=== PATIENT | female | born 1985 | race Caucasian/White ===

== ENCOUNTER 2016-11-07 08:37 | Inpatient (IN) | payer MEDICAID ==
--- NOTE | 2016-11-07 09:42 | ER Document Report ---
ED Medical Screen (RME) - General Chief Complaint: Fall Stated Complaint: FALL/ BACK PAIN Notes: Patient says she has fallen 3 times since midnight. Her only injury is pain between the shoulder blades where she hit her back. 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 She has occasional falls, but has not had 3 in a row like currently. She also has a history of vertigo. Says she was feeling very tired all day yesterday but no other symptoms. Has not had any vomiting or diarrhea. No UTI symptoms. No fevers. PMH: Asthma, GERD, IDDM, hypothyroid. TRAVEL OUTSIDE OF THE [place] IN LAST 30 DAYS: No - Related Data Allergies/Adverse Reactions: clarithromycin [From Biaxin] Allergy (Mild, Verified 11/07/16 08:46) Hives codeine [Codeine] Allergy (Mild, Verified 11/07/16 08:46) Hives meperidine HCl [From Demerol] Allergy (Mild, Verified 11/07/16 08:46) Hives Influenza Virus Vaccines [Influenza Virus Vaccine] Allergy (Verified 11/07/16 08 :46) Past Medical History - Past Medical History Cardiac Medical History: Reports: Hx Peripheral Vascular Disease, Hx Heart Murmur Denies: Hx Atrial Fibrillation, Hx Congestive Heart Failure, Hx Coronary Artery Disease, Hx Heart Attack, Hx Hypercholesterolemia, Hx Hypertension, Hx Pulmonary Embolism Pulmonary Medical History: Reports: Hx Asthma Denies: Hx Bronchitis, Hx COPD, Hx Pneumonia, Hx Respiratory Failure, Hx Sleep Apnea, Hx Tuberculosis Neurological Medical History: Reports: Hx Migraine, Hx Seizures. Denies: Hx Cerebrovascular Accident Endocrine Medical History: Reports: Hx Diabetes Mellitus Type 1, Hx Diabetes Mellitus Type 2, Hx Hypothyroidism. Denies: Hx Graves' Disease, Hx Hyperthyroidism Renal/ Medical History: Denies: Hx End Stage Renal Disease, Hx Kidney Stones, Hx Ovarian Cysts, Hx Peritoneal Dialysis, Hx Pelvic Inflammatory Disease Malignancy Medical History: Denies: Hx Breast Cancer, Hx Cervical Cancer, Hx Leukemia, Hx Lung Cancer, Hx Ovarian Cancer GI Medical History: Reports: Hx Gastroesophageal Reflux Disease, Hx Ulcer. Denies: Hx Crohn's Disease, Hx Hiatal Hernia, Hx Irritable Bowel, Hx Liver Failure Musculoskeltal Medical History: Denies Hx Arthritis, Denies Hx Multiple Sclerosis Skin Medical History: Reports Hx Cellulitis Psychiatric Medical History: Denies: Hx Bipolar Disorder, Hx Dementia, Hx Depression, Hx Post Traumatic Stress Disorder, Hx Schizophrenia Infectious Medical History: Denies: Hx HIV Past Surgical History: Reports: Hx Section - x 2, Hx Gynecologic Surgery - D&C, Hx Oral Surgery, Hx Tubal Ligation - December 2009. Denies: Hx Appendectomy, Hx Bowel Surgery, Hx Cholecystectomy, Hx Colostomy, Hx Coronary Artery Bypass Graft, Hx Gastric Bypass Surgery, Hx Herniorrhaphy, Hx Hysterectomy, Hx Mastectomy, Hx Pacemaker, Hx Tonsillectomy - Immunizations Immunizations up to date: Yes Hx Diphtheria, Pertussis, Tetanus Vaccination: Yes Physical Exam - Vital signs Vitals: Temp Pulse Resp BP Pulse Ox 97.6 F 102 H 21 H 113/62 98 11/07/16 08:46 11/07/16 08:46 11/07/16 08:46 11/07/16 08:46 11/07/16 08:46 Course - Vital Signs Vital signs: Temp Pulse Resp BP Pulse Ox 97.6 F 102 H 21 H 113/62 98 11/07/16 08:46 11/07/16 08:46 11/07/16 08:46 11/07/16 08:46 11/07/16 08:46 - Laboratory Laboratory results interpreted by me: 11/07/16 08:54 POC Glucose 249 H
[2016-11-07 10:15] LABS: ABSOLUTE BASOPHILS # (AUTO) 0.1 10^3/uL (0.0-0.2); ABSOLUTE LYMPHOCYTES (AUTO) 1.6 10^3/uL (0.5-4.7); ABSOLUTE MONOCYTES (AUTO) 0.5 10^3/uL (0.1-1.4); ABSOLUTE NEUT (AUTO) 4.7 10^3/uL (1.7-8.2); BASOPHILS % (AUTO) 0.8 % (0-2); EOSINOPHILS % (AUTO) 0.5 % (0-6); HEMATOCRIT 37.8 % (36.0-47.0); HEMOGLOBIN 12.5 g/dL (12.0-15.5); HGB HCT DIFFERENCE -0.3; MEAN CORPUSCULAR HEMOGLOBIN 26.7 pg (27.0-33.4); MEAN CORPUSCULAR HGB CONC 33.1 g/dL (32.0-36.0); MEAN CORPUSCULAR VOLUME 81 fl (80-97); MONOCYTES % (AUTO) 7.8 % (3-13); RED BLOOD COUNT 4.69 10^6/uL (3.72-5.28); SEGMENTED NEUTROPHILS % (AUTO) 67.9 % (42-78); WHITE BLOOD COUNT 6.9 10^3/uL (4.0-10.5)
[2016-11-07 10:21] LABS: APPEARANCE,URINE SLIGHTLY-CLOUDY; BILIRUBIN,URINE NEGATIVE (NEGATIVE); GLUCOSE, URINE NEGATIVE (NEGATIVE); KETONES,URINE 20 mg/dL (NEGATIVE); LEUKOCYTE ESTERASE,URINE MODERATE (NEGATIVE); NITRITE,URINE NEGATIVE (NEGATIVE); PROTEIN,URINE 30 mg/dL (NEGATIVE); URINE SPECIFIC GRAVITY 1.016; UROBILINOGEN,URINE NEGATIVE mg/dL (<2.0)
[2016-11-07 10:33] LABS: ALANINE AMINOTRANSFERASE 32 U/L (9-52); ALBUMIN 4.5 g/dL (3.5-5.0); ALKALINE PHOSPHATASE 86 U/L (38-126); ASPARTATE AMINO TRANSFERASE 35 U/L (14-36); BILIRUBIN,DIRECT 0.4 mg/dL (0.0-0.4); BILIRUBIN,TOTAL 0.4 mg/dL (0.2-1.3); BLOOD UREA NITROGEN 17 mg/dL (7-20); CALCIUM 9.8 mg/dL (8.4-10.2); CARBON DIOXIDE 15 mmol/L (22-30); CHLORIDE 107 mmol/L (98-107); CREATININE RESULT 0.94 mg/dL (0.52-1.25); GLUCOSE 247 mg/dL (75-110); POTASSIUM 3.8 mmol/L (3.6-5.0); SODIUM 142.3 mmol/L (137-145); TOTAL PROTEIN 8.6 g/dL (6.3-8.2)
[2016-11-07 10:36] LABS: ANION GAP 20 (5-19)
[2016-11-07] MEDS ORDERED: NORMAL SALINE 1000 ML 2,000 ML IV ONE (11:42)
[2016-11-07] MEDS ORDERED: NORMAL SALINE 100 ML with INSULIN REGULAR, HUMAN 100 UNIT IV PRN ×4 (11:44→15:02)
--- NOTE | 2016-11-07 12:32 | ER Document Report ---
ED General - General Chief Complaint: Fall Stated Complaint: FALL/ BACK PAIN Mode of Arrival: Ambulatory Information source: Patient TRAVEL OUTSIDE OF THE [place] IN LAST 30 DAYS: No - HPI Onset: Yesterday Quality of pain: Sharp Notes: Patient arrives with complaints of back pain after falling. She said approximately 3 falls over the last 24 hours and she hit her upper back on the dresser ground. She had no head injury. She denies any loss of consciousness. She denies any headache. She denies any numbness, tingling, weakness. No blurred or loss vision. She complains of upper back pain. She denies any bowel or bladder dysfunction or numbness tingling weakness of the upper or lower extremities. Patient also reports that she is a brittle diabetic and has been in DKA several times in the past. States her blood sugars have been running anywhere from 50-200 over the last 24 hours. She denies any nausea, vomiting, diarrhea. No fevers. Pain in her back is worse with movement, better with rest. She denies any other complaints at this time. - Related Data Allergies/Adverse Reactions: clarithromycin [From Biaxin] Allergy (Mild, Verified 11/07/16 08:46) Hives codeine [Codeine] Allergy (Mild, Verified 11/07/16 08:46) Hives meperidine HCl [From Demerol] Allergy (Mild, Verified 11/07/16 08:46) Hives Influenza Virus Vaccines [Influenza Virus Vaccine] Allergy (Verified 11/07/16 08 :46) Past Medical History - Social History Smoking Status: Unknown if Ever Smoked Family History: Reviewed & Not Pertinent Patient has suicidal ideation: No Patient has homicidal ideation: No - Past Medical History Cardiac Medical History: Reports: Hx Peripheral Vascular Disease, Hx Heart Murmur Denies: Hx Atrial Fibrillation, Hx Congestive Heart Failure, Hx Coronary Artery Disease, Hx Heart Attack, Hx Hypercholesterolemia, Hx Hypertension, Hx Pulmonary Embolism Pulmonary Medical History: Reports: Hx Asthma Denies: Hx Bronchitis, Hx COPD, Hx Pneumonia, Hx Respiratory Failure, Hx Sleep Apnea, Hx Tuberculosis Neurological Medical History: Reports: Hx Migraine, Hx Seizures. Denies: Hx Cerebrovascular Accident Endocrine Medical History: Reports: Hx Diabetes Mellitus Type 1, Hx Diabetes Mellitus Type 2, Hx Hypothyroidism. Denies: Hx Graves' Disease, Hx Hyperthyroidism Renal/ Medical History: Denies: Hx End Stage Renal Disease, Hx Kidney Stones, Hx Ovarian Cysts, Hx Peritoneal Dialysis, Hx Pelvic Inflammatory Disease Malignancy Medical History: Denies: Hx Breast Cancer, Hx Cervical Cancer, Hx Leukemia, Hx Lung Cancer, Hx Ovarian Cancer GI Medical History: Reports: Hx Gastroesophageal Reflux Disease, Hx Ulcer. Denies: Hx Crohn's Disease, Hx Hiatal Hernia, Hx Irritable Bowel, Hx Liver Failure Musculoskeltal Medical History: Denies Hx Arthritis, Denies Hx Multiple Sclerosis Skin Medical History: Reports Hx Cellulitis Psychiatric Medical History: Denies: Hx Bipolar Disorder, Hx Dementia, Hx Depression, Hx Post Traumatic Stress Disorder, Hx Schizophrenia Infectious Medical History: Denies: Hx HIV Past Surgical History: Reports: Hx Section - x 2, Hx Gynecologic Surgery - D&C, Hx Oral Surgery, Hx Tubal Ligation - December 2009. Denies: Hx Appendectomy, Hx Bowel Surgery, Hx Cholecystectomy, Hx Colostomy, Hx Coronary Artery Bypass Graft, Hx Gastric Bypass Surgery, Hx Herniorrhaphy, Hx Hysterectomy, Hx Mastectomy, Hx Pacemaker, Hx Tonsillectomy - Immunizations Immunizations up to date: Yes Hx Diphtheria, Pertussis, Tetanus Vaccination: Yes Hx Pneumococcal Vaccination: 08/04/00 Review of Systems - Review of Systems -: Yes All other systems reviewed and negative Physical Exam - Vital signs Vitals: Temp Pulse Resp BP Pulse Ox 97.6 F 102 H 21 H 113/62 98 11/07/16 08:46 11/07/16 08:46 11/07/16 08:46 11/07/16 08:46 11/07/16 08:46 - General General appearance: Appears well, Alert - HEENT Head: Normocephalic, Atraumatic Eyes: Normal Pupils: PERRL Mouth/Lips: Normal Mucous membranes: Normal - Respiratory Respiratory status: No respiratory distress Breath sounds: Normal - Cardiovascular Rhythm: Regular Heart sounds: Normal auscultation Murmur: No Normal capillary refill: Yes - Abdominal Inspection: Normal Distension: No distension Bowel sounds: Normal Tenderness: Nontender Organomegaly: No organomegaly - Back Back: Tender - Midthoracic spine. No step-offs or crepitus. - Extremities General upper extremity: Normal inspection, Nontender, Normal color, Normal ROM , Normal temperature General lower extremity: Normal inspection, Nontender, Normal color, Normal ROM , Normal temperature, Normal weight bearing. No: Bijal's sign - Neurological Neuro grossly intact: Yes Cognition: Normal Orientation: AAOx4 Dane Coma Scale Eye Opening: Spontaneous Dane Coma Scale Verbal: Oriented [place] Coma Scale Motor: Obeys Commands Dane Coma Scale Total: 15 Speech: Normal Motor strength normal: LUE, RUE, LLE, RLE Sensory: Normal Knee - Reflex grade: 2 = Normal Ankle - Reflex grade: 2 = Normal Notes: 5/5 flexion extension bilaterally. Normal sensation with no saddle anesthesia. - Psychological Associated symptoms: Normal affect, Normal mood - Skin Skin Temperature: Warm Skin Moisture: Dry Skin Color: Normal Course - Re-evaluation Re-evalutation: 11/07/16 12:36 Patient is nontoxic. Stable vitals. The patient fell injuring her upper back. X-rays show no fracture. She has a benign exam with no neurological deficits. In reviewing her lab work, the patient is noted to have a blood sugar of 250 with a bicarbonate of 15 and an elevated anion gap. This is consistent with DKA. Patient is stable at this time with normal mentation. IV fluids up and started as well as an insulin drip. Every hour Accu-Cheks. The patient will be admitted to the hospital for DKA. I discussed the case with Dr. Valera, he has accepted the admission. - Vital Signs Vital signs: Temp Pulse Resp BP Pulse Ox 97.6 F 102 H 21 H 113/62 98 11/07/16 08:46 11/07/16 08:46 11/07/16 08:46 11/07/16 08:46 11/07/16 08:46 - Laboratory Result Diagrams: 11/07/16 09:48 11/07/16 09:48 Laboratory results interpreted by me: 11/07/16 11/07/16 11/07/16 08:54 09:44 09:48 MCH 26.7 L RDW 17.0 H Carbon Dioxide Anion Gap Glucose POC Glucose 249 H 242 H Total Protein Urine Protein Urine Ketones Urine Blood Ur Leukocyte Esterase 11/07/16 11/07/16 09:48 09:48 MCH RDW Carbon Dioxide 15 L Anion Gap 20 H Glucose 247 H POC Glucose Total Protein 8.6 H Urine Protein 30 H Urine Ketones 20 H Urine Blood SMALL H Ur Leukocyte Esterase MODERATE H - Diagnostic Test Radiology reviewed: Image reviewed, Reports reviewed - Thoracic x-rays negative Discharge - Discharge Clinical Impression: Pain in thoracic spine DKA (diabetic ketoacidoses) Qualifiers: Diabetes mellitus type: type 1 Diabetes mellitus complication detail: without coma Qualified Code(s): E10.10 - Type 1 diabetes mellitus with ketoacidosis without coma Disposition: ADMITTED INPATIENT Admitting Provider: Hospitalist - Dr Valera Unit Admitted: [facility]
--- NOTE | 2016-11-07 12:32 | ER Document Report ---
Doctor's Note Notes: 11/07/16 12:32
[2016-11-07] MEDS ORDERED: KETOROLAC TROMETHAMINE INJ/PF 30 MG/1 ML SDV IV ONE (12:40)
[2016-11-07] MEDS ORDERED: INSULIN REG, HUMAN 100 UNIT/ML 3 ML VIAL (PYX) ONE ×2 (13:48→13:54)
[2016-11-07] MEDS ORDERED: DEXTROSE 40% GEL 15 GM TUBE PO PRN ×2 (14:59)
[2016-11-07] MEDS ORDERED: DEXTROSE 50%-WATER 25 GM/50 ML DISP.SYRIN IV PRN ×2 (14:59)
[2016-11-07] MEDS ORDERED: GLUCAGON,HUMAN RECOMB 1 MG INJ IM PRN (14:59)
[2016-11-07] MEDS ORDERED: NORMAL SALINE 1000 ML 1,000 ML IV PRN ×2 (14:59→19:05)
[2016-11-07] MEDS ORDERED: DEXTROSE 5%-1/2 NORMAL SALINE 1,000 ML IV PRN (15:04)
[2016-11-07] MEDS ORDERED: ONDANSETRON HCL INJ/PF 4 MG/2 ML SDV IV PRN (15:06)
[2016-11-07] MEDS ORDERED: ACETAMINOPHEN 325 MG TABLET PO PRN (15:06)
[2016-11-07] MEDS ORDERED: LORAZEPAM INJ 2 MG/1 ML VIAL IV PRN (15:11)
[2016-11-07] MEDS ORDERED: DEXAMETHASONE SOD PHOS INJ 10 MG/1 ML VIAL IV ONE (15:18)
[2016-11-07] MEDS ORDERED: CYCLOBENZAPRINE HCL 10 MG TABLET PO PRN (15:18)
[2016-11-07] MEDS ORDERED: MELOXICAM 7.5 MG TABLET PO PRN (15:19)
--- NOTE | 2016-11-07 15:31 | EKG REPORT ---
SEVERITY:- NORMAL ECG - SINUS RHYTHM : Confirmed by: Haritha Tomas MD 07-Nov-2016 15:31:14
--- NOTE | 2016-11-07 15:40 | PDOC H&P ---
History of Present Illness Admission Date/PCP: 11/07/16 12:52 Patient complains of: Back pain History of Present Illness: CHRISTIANO ST is a 31 year old female, with history of type I diabetes mellitus uncontrolled, blood sugar sometimes low and sometimes very high and she is just taking sliding scale insulin, with postprandial coverage apparently fell several times at home started to hurt on her back mainly on the thoracic spine. The patient knew about the episode without any syncopal episode. She stated that she had many seizures in the past when she was in [place]. There was no urinary or bladder incontinence. There is no discharges or frequency, no diarrhea, no vaginal discharge or bleeding. There is no shortness of breath or cough, sinus congestion, sore throat, chills nor fever. There is likewise no headache nor any earaches or pain. In the emergency room her bicarbonate level was low, anion gap was high, blood sugar was markedly elevated, an impression of DKA was made and the patient was started on intravenous insulin and IV fluids, and was referred for admission. Past Medical History Cardiac Medical History: Reports: Peripheral Vascular Disease, Heart Murmur Denies: Atrial Fibrillation, Congestive Heart Failure, Coronary Artery Disease, Myocardial Infarction, Hyperlipidema, Hypertension, Pulmonary Embolism Pulmonary Medical History: Reports: Asthma Denies: Bronchitis, Chronic Obstructive Pulmonary Disease (COPD), Pneumonia, Respiratory Failure, Sleep Apnea, Tuberculosis Neurological Medical History: Reports: Migraine, Seizures Endocrine Medical History: Reports: Diabetes Mellitus Type 1, Diabetes Mellitus Type 2, Hypothyroidism Denies: Hyperthyroidism Renal/ Medical History: Denies: End Stage Renal Disease Malignancy Medical History: Denies: Breast Cancer, Cervical Cancer, Leukemia, Lung Cancer, Ovarian Cancer GI Medical History: Reports: Gastroesophageal Reflux Disease Denies: Crohn's Disease, Hiatal Hernia Musculoskeltal Medical History: Denies: Arthritis Psychiatric Medical History: Denies: Bipolar Disorder, Dementia, Depression, Post Traumatic Stress Disorder Hematology: Denies: Anemia, Hemophilia, Sickle Cell Disease Infectious Medical History: Denies: HIV Past Surgical History Past Surgical History: Reports: Section - x 2, Tubal Ligation - December 2009 Denies: Appendectomy, Cholecystectomy, Colostomy, Coronary Artery Bypass Graft, Gastric Bypass Surgery, Herniorrhaphy, Hysterectomy, Mastectomy, Pacemaker, Tonsillectomy Social History Information Source: Patient Smoking Status: Current Every Day Smoker Frequency of Alcohol Use: None Hx Recreational Drug Use: No Drugs: None Hx Prescription Drug Abuse: No Family History Family History: Other - Liver disease Parental Family History Reviewed: Yes Children Family History Reviewed: Yes Sibling(s) Family History Reviewed.: Yes Medication/Allergy Home Medications: Gabapentin [Neurontin] 600 mg PO TID 11/07/16 Insulin Glargine,Hum.rec.anlog [Lantus] 30 unit SQ QAM 11/07/16 Insulin Glargine,Hum.rec.anlog [Lantus] 30 unit SQ QHS 11/07/16 Levothyroxine Sodium [Synthroid 0.1 mg Tablet] 0.1 mg PO DAILY 11/07/16 Allergies/Adverse Reactions: clarithromycin [From Biaxin] Allergy (Mild, Verified 11/07/16 08:46) Hives codeine [Codeine] Allergy (Mild, Verified 11/07/16 08:46) Hives meperidine HCl [From Demerol] Allergy (Mild, Verified 11/07/16 08:46) Hives Influenza Virus Vaccines [Influenza Virus Vaccine] Allergy (Verified 11/07/16 08 :46) Review of Systems Constitutional: ABSENT: chills, fever(s), headache(s), weakness, weight gain, weight loss Eyes: ABSENT: visual disturbances Ears: ABSENT: hearing changes Nose, Mouth, and Throat: ABSENT: mouth pain, sore throat Cardiovascular: ABSENT: chest pain, dyspnea on exertion, edema, orthropnea, palpitations Respiratory: ABSENT: cough, dyspnea, hemoptysis, sputum Gastrointestinal: ABSENT: abdominal pain, constipation, diarrhea, hematemesis, hematochezia, nausea, vomiting Genitourinary: ABSENT: difficulty urinating, dysuria, hematuria Musculoskeletal: ABSENT: joint swelling Integumentary: ABSENT: pruritus, rash, wounds Neurological: ABSENT: abnormal gait, abnormal speech, confusion, dizziness, focal weakness, syncope Psychiatric: ABSENT: anxiety, depression, homidical ideation, suicidal ideation Endocrine: ABSENT: cold intolerance, heat intolerance, polydipsia, polyuria Hematologic/Lymphatic: ABSENT: easy bleeding, easy bruising Physical Exam Vital Signs: Temp Pulse Resp BP Pulse Ox 98.4 F 102 H 18 95/63 L 97 11/07/16 14:30 11/07/16 08:46 11/07/16 14:16 11/07/16 14:16 11/07/16 14:27 General appearance: PRESENT: no acute distress, well-developed, well-nourished Head exam: PRESENT: atraumatic, normocephalic Eye exam: PRESENT: conjunctiva pink, EOMI, PERRLA. ABSENT: scleral icterus Ear exam: PRESENT: normal external ear exam. ABSENT: drainage Mouth exam: PRESENT: moist, neck supple, tongue midline Throat exam: ABSENT: post pharyngeal erythema, tonsillar erythema Neck exam: ABSENT: carotid bruit, JVD, lymphadenopathy, thyromegaly Respiratory exam: PRESENT: clear to auscultation boubacar. ABSENT: rales, rhonchi, wheezes Cardiovascular exam: PRESENT: RRR, +S1, +S2. ABSENT: diastolic murmur, gallop, rubs, systolic murmur Pulses: PRESENT: normal dorsalis pedis pul Vascular exam: PRESENT: normal capillary refill GI/Abdominal exam: PRESENT: normal bowel sounds, soft. ABSENT: distended, guarding, mass, organolmegaly, rebound, tenderness Rectal exam: PRESENT: deferred Extremities exam: PRESENT: full ROM. ABSENT: calf tenderness, clubbing, pedal edema Neurological exam: PRESENT: alert, awake, oriented to person, oriented to place , oriented to time, oriented to situation Psychiatric exam: PRESENT: appropriate affect, normal mood. ABSENT: homicidal ideation, suicidal ideation Skin exam: PRESENT: dry, intact, warm. ABSENT: cyanosis, rash Results Impressions: Thoracic Spine X-Ray 11/07/16 09:40 IMPRESSION: NO SIGNIFICANT RADIOGRAPHIC FINDING IN THE THORACIC SPINE. Assessment & Plan - Diagnosis (1) DKA (diabetic ketoacidoses) Qualifiers: Diabetes mellitus type: type 1 Diabetes mellitus complication detail: without coma Qualified Code(s): E10.10 - Type 1 diabetes mellitus with ketoacidosis without coma Is this a current diagnosis for this admission?: Yes (2) Thoracic spine pain Is this a current diagnosis for this admission?: Yes (3) UTI (urinary tract infection) Qualifiers: Urinary tract infection type: site unspecified Hematuria presence: without hematuria Qualified Code(s): N39.0 - Urinary tract infection, site not specified Is this a current diagnosis for this admission?: Yes (4) Hypothyroidism Qualifiers: Hypothyroidism type: acquired Qualified Code(s): E03.9 - Hypothyroidism, unspecified Is this a current diagnosis for this admission?: Yes (5) Asthma Qualifiers: Asthma severity: unspecified severity Asthma complication type: uncomplicated Qualified Code(s): J45.909 - Unspecified asthma, uncomplicated Is this a current diagnosis for this admission?: Yes (6) GERD (gastroesophageal reflux disease) Qualifiers: Esophagitis presence: without esophagitis Qualified Code(s): K21.9 - Gastro-esophageal reflux disease without esophagitis Is this a current diagnosis for this admission?: Yes (7) Migraine Qualifiers: Migraine type: unspecified Status migrainosus presence: without status migrainosus Intractability: not intractable Qualified Code(s): G43.909 - Migraine, unspecified, not intractable, without status migrainosus Is this a current diagnosis for this admission?: Yes (8) Seizure disorder Is this a current diagnosis for this admission?: Yes - Time Time Spent: 50 to 70 Minutes - Inpatient Certification Based on my medical assessment, after consideration of the patient's comorbidities, presenting symptoms, or acuity I expect that the services needed warrant INPATIENT care.: Yes I certify that my determination is in accordance with my understanding of Medicare's requirements for reasonable and necessary INPATIENT services [42 CFR 412.3e].: Yes Medical Necessity: Significant Comorbidiites Make Outpatient Treatment Too Risky , Need Close Monitoring Due to Risk of Patient Decompensation, Need For IV Fluids, Risk of Complication if Not Cared For in Hospital Post Hospital Care: D/C [employer] Assistant Documentation - Plan Summary Plan Summary: Patient will be admitted to [facility]. Continue insulin drip and IV hydration. Monitor anion gap every 6 hours. In the meantime will monitor blood sugars hourly until the anion gap normalizes. We will begin dextrose IV fluid as her blood sugar is trending down. We will start ceftriaxone for urinary tract infection, culture her urine. Obtain EEG. DVT prophylaxis with Lovenox will be placed. Further testing depends on initial evaluation as outlined above. In terms of the patient's back pain, I will try her on anti-inflammatory medication and muscle relaxants.
[2016-11-07] MEDS ORDERED: ENOXAPARIN SODIUM INJ 40 MG/0.4 ML DISP.SYRIN SUBCUT ONE (16:00)
[2016-11-07] MEDS ORDERED: LANSOPRAZOLE 30 MG TAB.RAP.DR PO ONE (16:00)
[2016-11-07] MEDS ORDERED: CEFTRIAXONE 1 GM/D5W RTU 1 GM/50 ML RTUPB IV ONE (16:00)
[2016-11-07 16:17] LABS: ANION GAP 17 (5-19); BLOOD UREA NITROGEN 17 mg/dL (7-20); CALCIUM 8.8 mg/dL (8.4-10.2); CARBON DIOXIDE 13 mmol/L (22-30); CHLORIDE 113 mmol/L (98-107); CREATININE RESULT 0.99 mg/dL (0.52-1.25); GLUCOSE 77 mg/dL (75-110); POTASSIUM 3.4 mmol/L (3.6-5.0); SODIUM 142.8 mmol/L (137-145)
[2016-11-07] MEDS: DOCUSATE SODIUM 100 MG CAPSULE PO SCH (17:29)
[2016-11-07] MEDS ORDERED: POTASSIUM CHLORIDE 10 MEQ TABLET.SA PO ONE (17:58)
[2016-11-07] MEDS ORDERED: GABAPENTIN 300 MG CAPSULE PO SCH (22:00)
[2016-11-07] MEDS: INSULIN LISPRO 100 UNIT/ML 3 ML VIAL SUBCUT PRN (22:12)
[2016-11-07 22:52] LABS: URINE BARBITURATES SCREEN NEGATIVE; URINE METHADONE SCREEN NEGATIVE; URINE OPIATES LOW NEGATIVE; URINE PHENCYCLIDINE SCREEN NEGATIVE
[2016-11-07] MEDS ORDERED: GABAPENTIN 300 MG CAPSULE PO ONE (23:00)
[2016-11-07 23:34] LABS: ANION GAP 14 (5-19); BLOOD UREA NITROGEN 18 mg/dL (7-20); CALCIUM 8.8 mg/dL (8.4-10.2); CARBON DIOXIDE 14 mmol/L (22-30); CHLORIDE 111 mmol/L (98-107); CREATININE RESULT 1.08 mg/dL (0.52-1.25); GLUCOSE 320 mg/dL (75-110); POTASSIUM 3.9 mmol/L (3.6-5.0); SODIUM 138.8 mmol/L (137-145)
[2016-11-08] MEDS ORDERED: RINGERS SOLUTION,LACTATED 1,000 ML IV ONE (01:00)
[2016-11-08 03:30] LABS: URINE BARBITURATES SCREEN NEGATIVE; URINE METHADONE SCREEN NEGATIVE; URINE OPIATES LOW NEGATIVE; URINE PHENCYCLIDINE SCREEN NEGATIVE
[2016-11-08 05:07] LABS: MEAN CORPUSCULAR VOLUME 81 fl (80-97)
[2016-11-08 05:15] LABS: ABSOLUTE LYMPHOCYTES (AUTO) 0.6 10^3/uL (0.5-4.7); ABSOLUTE MONOCYTES (AUTO) 0.1 10^3/uL (0.1-1.4); ABSOLUTE NEUT (AUTO) 5.1 10^3/uL (1.7-8.2); BASOPHILS % (AUTO) 0.4 % (0-2); HEMATOCRIT 32.2 % (36.0-47.0); HGB HCT DIFFERENCE -0.4; LYMPHOCYTES % (AUTO) 10.4 % (13-45); MEAN CORPUSCULAR HEMOGLOBIN 26.8 pg (27.0-33.4); MONOCYTES % (AUTO) 2.1 % (3-13); RED BLOOD COUNT 3.97 10^6/uL (3.72-5.28); RED CELL DISTRIBUTION WIDTH 17.1 % (11.5-14.0); SEGMENTED NEUTROPHILS % (AUTO) 87.1 % (42-78); WHITE BLOOD COUNT 5.9 10^3/uL (4.0-10.5)
[2016-11-08 05:17] LABS: HEMOGLOBIN 10.6 g/dL (12.0-15.5)
[2016-11-08 05:33] LABS: ANION GAP 12 (5-19); BLOOD UREA NITROGEN 17 mg/dL (7-20); CALCIUM 8.7 mg/dL (8.4-10.2); CARBON DIOXIDE 16 mmol/L (22-30); CHLORIDE 114 mmol/L (98-107); GLUCOSE 238 mg/dL (75-110); MAGNESIUM 2.1 mg/dL (1.6-2.3); PHOSPHORUS 3.4 mg/dL (2.5-4.5); POTASSIUM 4.3 mmol/L (3.6-5.0); SODIUM 142.1 mmol/L (137-145)
[2016-11-08] MEDS ORDERED: GABAPENTIN 300 MG CAPSULE PO SCH (06:00)
[2016-11-08] MEDS ORDERED: LANSOPRAZOLE 30 MG TAB.RAP.DR PO SCH (06:00)
[2016-11-08] MEDS ORDERED: ENOXAPARIN SODIUM INJ 40 MG/0.4 ML DISP.SYRIN SUBCUT SCH (08:00)
[2016-11-08] MEDS: INSULIN LISPRO 100 UNIT/ML 3 ML VIAL SUBCUT PRN (08:17)
--- NOTE | 2016-11-08 09:33 | EEG PRO FEE REPORT ---
EEG INTERPRETATION PATIENT NAME: CHRISTIANO ST ROOM#: 302 ORDER#: [id number] DATE OF STUDY: 11/07/2016 : 1985 REFERRING MD: Dr Raheel Valera DIAGNOSIS: Seizure REPORT The background is quite slow down to 3-4 Hz delta at times, but for the most of the tracing no amplitude asymmetry is noted, no further focal slowing is noted. IMPRESSION This is all generalized slowing most consistent with a generalized cerebral dysfunction such as from a toxic or metabolic etiology. INTERPRETING PHYSICIAN: RENATE MCCOY M.D. /: [id number] TT: 0915 ID: [id number] /: [id number] TD: 0825 JOB: [id number] cc:RENATE MCCOY M.D. >
[2016-11-08] MEDS ORDERED: LEVOTHYROXINE SODIUM 0.1 MG TABLET PO SCH (10:00)
[2016-11-08] MEDS ORDERED: CEFTRIAXONE 1 GM/D5W RTU 1 GM/50 ML RTUPB IV SCH (10:00)
[2016-11-08] MEDS: DOCUSATE SODIUM 100 MG CAPSULE PO SCH (10:40)
[2016-11-08 11:50] VITALS: BP 102/53
--- NOTE | 2016-11-08 12:27 | PDOC DISCHARGE SUMMARY ---
General - Admit/Disc Date/PCP Admission Date/Primary Care Provider: 11/07/16 15:06 Discharge Date: 11/08/16 - Discharge Diagnosis (1) DKA (diabetic ketoacidoses) Is this a current diagnosis for this admission?: Yes (2) Thoracic spine pain Is this a current diagnosis for this admission?: Yes (3) UTI (urinary tract infection) Is this a current diagnosis for this admission?: Yes (4) Hypothyroidism Is this a current diagnosis for this admission?: Yes (5) Asthma Is this a current diagnosis for this admission?: Yes (6) GERD (gastroesophageal reflux disease) Is this a current diagnosis for this admission?: Yes (7) Migraine Is this a current diagnosis for this admission?: Yes (8) Seizure disorder Is this a current diagnosis for this admission?: Yes - Additional Information Resuscitation Status: Full Code Discharge Diet: Diabetic - no concenttrated sweets Discharge Activity: Activity As Tolerated, Balance Activity w/Rest Home Medications: Gabapentin [Neurontin] 600 mg PO TID 11/07/16 Insulin Aspart [Novolog Flexpen] 0 unit SUBCUT .SLD SCALE 11/07/16 Insulin Glargine,Hum.rec.anlog [Lantus] 30 unit SQ QAM 11/07/16 Insulin Glargine,Hum.rec.anlog [Lantus] 30 unit SQ QHS 11/07/16 Levothyroxine Sodium [Synthroid 0.1 mg Tablet] 0.1 mg PO DAILY 11/07/16 Ciprofloxacin HCl [Cipro 500 mg Tablet] 500 mg PO BID #4 tablet 11/08/16 Additional Information: Check free T4 level as outpatient with primary care physician. 2. Follow-up final report of the EEG as outpatient with primary care physician. 3. Measure blood sugar times daily and record, bring to next physician visit. History of Present Illness Patient complains of: Fall and back pain History of Present Illness: CHRISTIANO ST is a 31 year old female, with history of type I diabetes mellitus uncontrolled, blood sugar sometimes low and sometimes very high and she is just taking sliding scale insulin, with postprandial coverage apparently fell several times at home started to hurt on her back mainly on the thoracic spine. The patient knew about the episode without any syncopal episode. She stated that she had many seizures in the past when she was in [place]. There was no urinary or bladder incontinence. There is no discharges or frequency, no diarrhea, no vaginal discharge or bleeding. There is no shortness of breath or cough, sinus congestion, sore throat, chills nor fever. There is likewise no headache nor any earaches or pain. In the emergency room her bicarbonate level was low, anion gap was high, blood sugar was markedly elevated, an impression of DKA was made and the patient was started on intravenous insulin and IV fluids, and was referred for admission. Hospital Course Hospital Course: The patient was admitted to [facility]. Intravenous hydration was started, dextrose containing IV fluid was begun as well while the patient was on insulin drip started in the emergency room. Serial blood sugars were monitored and trended down. Anion gap was likewise monitored and eventually has normalized. The patient was given analgesics and anti-inflammatory medication for the back pain and a test result. EEG was performed and preliminary report shows no seizure. It was reported that the patient was taking full doses of Neurontin once. Patient on 600mg 3 times a day and one to take the medication at 1800 mg at one time. Patient would want to sign out AGAINST MEDICAL ADVICE if the medication was not given. She was therefore advised to take the medication as instructed to. Family at bedside with her who agrees with the instruction as well. Patient does not want to stay in the hospital any longer and wants to go home. No hypotension, no tachycardia noted. Patient is on supplemental thyroid medication, TSH was low and therefore she was advised to recheck her free T4 as outpatient with her primary care physician. Course was noted for abnormal urinalysis probably from underlying urinary tract infection which intravenous ceftriaxone was started. The rest of the hospital and station unremarkable Physical Exam Vital Signs: Temp Pulse Resp BP Pulse Ox 98.3 F 75 16 102/53 L 98 11/08/16 11:48 11/08/16 11:48 11/08/16 11:48 11/08/16 11:48 11/08/16 11:48 Intake & Output 11/07/16 11/08/16 11/09/16 06:59 06:59 06:59 Intake Total 2599 Output Total 1000 Balance 1599 Weight 67.6 kg General appearance: PRESENT: no acute distress, cooperative Head exam: PRESENT: normocephalic Eye exam: PRESENT: EOMI Mouth exam: PRESENT: moist, neck supple Neck exam: ABSENT: JVD Respiratory exam: PRESENT: clear to auscultation boubacar. ABSENT: rhonchi, wheezes Cardiovascular exam: PRESENT: RRR. ABSENT: gallop GI/Abdominal exam: PRESENT: soft. ABSENT: distended, tenderness Extremities exam: ABSENT: pedal edema Neurological exam: PRESENT: alert, awake, oriented to person, oriented to place , oriented to time, oriented to situation Skin exam: PRESENT: dry, warm. ABSENT: cyanosis Results Laboratory Results: 11/08/16 04:31 11/08/16 04:31 11/07/16 11/07/16 11/08/16 15:47 23:05 04:31 WBC 5.9 RBC 3.97 Hgb 10.6 L Hct 32.2 L MCV 81 MCH 26.8 L MCHC 33.0 RDW 17.1 H Plt Count 181 Seg Neutrophils % 87.1 H Lymphocytes % 10.4 L Monocytes % 2.1 L Eosinophils % 0.0 Basophils % 0.4 Absolute Neutrophils 5.1 Absolute Lymphocytes 0.6 Absolute Monocytes 0.1 Absolute Eosinophils 0.0 Absolute Basophils 0.0 Sodium 142.8 138.8 Potassium 3.4 L 3.9 Chloride 113 H 111 H Carbon Dioxide 13 L 14 L Anion Gap 17 14 BUN 17 18 Creatinine 0.99 1.08 Est GFR ( Amer) > 60 > 60 Est GFR (Non-Af Amer) > 60 > 60 Glucose 77 320 H Calcium 8.8 8.8 Phosphorus Magnesium TSH 11/08/16 11/08/16 04:31 04:31 WBC RBC Hgb Hct MCV MCH MCHC RDW Plt Count Seg Neutrophils % Lymphocytes % Monocytes % Eosinophils % Basophils % Absolute Neutrophils Absolute Lymphocytes Absolute Monocytes Absolute Eosinophils Absolute Basophils Sodium 142.1 Potassium 4.3 Chloride 114 H Carbon Dioxide 16 L Anion Gap 12 BUN 17 Creatinine 0.90 Est GFR ( Amer) > 60 Est GFR (Non-Af Amer) > 60 Glucose 238 H Calcium 8.7 Phosphorus 3.4 Magnesium 2.1 TSH 0.27 L Impressions: Thoracic Spine X-Ray 11/07/16 09:40 IMPRESSION: NO SIGNIFICANT RADIOGRAPHIC FINDING IN THE THORACIC SPINE. Qualifiers PATEINT BEING DISCHARGED WITH ANY OF THE FOLLOWING DIAGNOSIS?: No Plan Discharge Plan: Follow-up with primary care physician in one week. 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 Time Spent: Less than 30 Minutes
== END 2016-11-08 12:12 | disposition home or self-care (01) | DRG 638 ==
LOC: ER 08:37 → UNDOADMIN 12:52 → EH 12:52 → 3N 18:34
DX: E10.10 Type 1 diabetes mellitus with ketoacidosis without coma (principal); N39.0 Urinary tract infection, site not specified; M54.6 Pain in thoracic spine; E03.9 Hypothyroidism, unspecified; J45.909 Unspecified asthma, uncomplicated; K21.9 Gastro-esophageal reflux disease without esophagitis; G43.909 Migraine, unspecified, not intractable, without status migrainosus; G40.909 Epilepsy, unspecified, not intractable, without status epilepticus; E10.51 Type 1 diabetes mellitus with diabetic peripheral angiopathy without gangrene; W18.39XA Other fall on same level, initial encounter; Y92.009 Unspecified place in unspecified non-institutional (private) residence as the place of occurrence of the external cause; R01.1 Cardiac murmur, unspecified; F17.210 Nicotine dependence, cigarettes, uncomplicated; Z79.4 Long term (current) use of insulin; Z79.899 Other long term (current) drug therapy; Z88.3 Allergy status to other anti-infective agents; Z88.6 Allergy status to analgesic agent; Z88.7 Allergy status to serum and vaccine
CPT/HCPCS: 36415; 72070; 80048; 80053; 80307; 81001; 81025; 82962; 83735; 84100; 84443; 85025; 87086; 93005; 93010; 95819; 99285; J0696; J1100; J1650; J1815; J1885; J7030; J7120

== ENCOUNTER 2016-12-20 17:41 | Emergency (ER) | payer MEDICAID ==
--- NOTE | 2016-12-20 19:07 | ER Document Report ---
ED Medical Screen (RME) - General Chief Complaint: Ankle Injury Stated Complaint: FALL/RIGHT ANKLE PAIN Time Seen by Provider: 12/20/16 19:06 Notes: File admits to pain in the right ankle. Able to ambulate the pain with ambulation. I have greeted and performed a rapid initial assessment of this patient. A comprehensive ED assessment and evaluation of the patient, analysis of test results and completion of the medical decision making process will be conducted by additional ED providers. TRAVEL OUTSIDE OF THE [place] IN LAST 30 DAYS: No - Related Data Allergies/Adverse Reactions: clarithromycin [From Biaxin] Allergy (Mild, Verified 12/20/16 17:44) Hives codeine [Codeine] Allergy (Mild, Verified 12/20/16 17:44) Hives meperidine HCl [From Demerol] Allergy (Mild, Verified 12/20/16 17:44) Hives Influenza Virus Vaccines [Influenza Virus Vaccine] Allergy (Verified 12/20/16 17 :44) Past Medical History - Past Medical History Cardiac Medical History: Reports: Hx Peripheral Vascular Disease, Hx Heart Murmur Denies: Hx Atrial Fibrillation, Hx Congestive Heart Failure, Hx Coronary Artery Disease, Hx Heart Attack, Hx Hypercholesterolemia, Hx Hypertension, Hx Pulmonary Embolism Pulmonary Medical History: Reports: Hx Asthma Denies: Hx Bronchitis, Hx COPD, Hx Pneumonia, Hx Respiratory Failure, Hx Sleep Apnea, Hx Tuberculosis Neurological Medical History: Reports: Hx Migraine, Hx Seizures. Denies: Hx Cerebrovascular Accident Endocrine Medical History: Reports: Hx Diabetes Mellitus Type 1, Hx Diabetes Mellitus Type 2, Hx Hypothyroidism. Denies: Hx Graves' Disease, Hx Hyperthyroidism Renal/ Medical History: Denies: Hx End Stage Renal Disease, Hx Kidney Stones, Hx Ovarian Cysts, Hx Peritoneal Dialysis, Hx Pelvic Inflammatory Disease Malignancy Medical History: Denies: Hx Breast Cancer, Hx Cervical Cancer, Hx Leukemia, Hx Lung Cancer, Hx Ovarian Cancer GI Medical History: Reports: Hx Gastroesophageal Reflux Disease, Hx Ulcer. Denies: Hx Crohn's Disease, Hx Hiatal Hernia, Hx Irritable Bowel, Hx Liver Failure Musculoskeltal Medical History: Denies Hx Arthritis, Denies Hx Multiple Sclerosis Skin Medical History: Reports Hx Cellulitis Psychiatric Medical History: Denies: Hx Bipolar Disorder, Hx Dementia, Hx Depression, Hx Post Traumatic Stress Disorder, Hx Schizophrenia Infectious Medical History: Denies: Hx HIV Past Surgical History: Reports: Hx Section - x 2, Hx Gynecologic Surgery - D&C, Hx Oral Surgery, Hx Tubal Ligation - December 2009. Denies: Hx Appendectomy, Hx Bowel Surgery, Hx Cholecystectomy, Hx Colostomy, Hx Coronary Artery Bypass Graft, Hx Gastric Bypass Surgery, Hx Herniorrhaphy, Hx Hysterectomy, Hx Mastectomy, Hx Pacemaker, Hx Tonsillectomy - Immunizations Immunizations up to date: Yes Hx Diphtheria, Pertussis, Tetanus Vaccination: Yes Physical Exam - Vital signs Vitals: Temp Pulse Resp BP Pulse Ox 97.9 F 92 16 117/74 97 12/20/16 17:44 12/20/16 17:44 12/20/16 17:44 12/20/16 17:44 12/20/16 17:44 Course - Vital Signs Vital signs: Temp Pulse Resp BP Pulse Ox 97.9 F 92 16 117/74 97 12/20/16 17:44 12/20/16 17:44 12/20/16 17:44 12/20/16 17:44 12/20/16 17:44
[2016-12-20] MEDS ORDERED: HYDROCODONE/ACETAMINOPHEN 5-325 MG 6 TAB/DSPK PO PRN (20:02)
--- NOTE | 2016-12-20 20:07 | ER Document Report ---
ED Extremity Problem, Lower - General Chief Complaint: Ankle Injury Stated Complaint: FALL/RIGHT ANKLE PAIN Time Seen by Provider: 12/20/16 19:06 Mode of Arrival: Wheelchair Information source: Patient Notes: 11-year-old female presents to ED for complaint of pain to the right ankle and lower leg. She states she was her daughter and fell in a hole that she did not see. She has bruises and swelling up to the mid lower leg. TRAVEL OUTSIDE OF THE [place] IN LAST 30 DAYS: No - HPI Patient complains to provider of: Injury, Pain, Swelling Location: Ankle, Leg Occurred: Just prior to arrival Where: Outdoors Onset/Duration: Sudden Severity: Moderate Pain Level: 4 Context: Fell - into a hole, Twisted, Wearing shoes Recent injury: Yes Associated symptoms: Painful ambulation Exacerbated by: Hanging down, Movement, Walking Relieved by: Nothing - Related Data Allergies/Adverse Reactions: clarithromycin [From Biaxin] Allergy (Mild, Verified 12/20/16 17:44) Hives codeine [Codeine] Allergy (Mild, Verified 12/20/16 17:44) Hives meperidine HCl [From Demerol] Allergy (Mild, Verified 12/20/16 17:44) Hives Influenza Virus Vaccines [Influenza Virus Vaccine] Allergy (Verified 12/20/16 17 :44) Past Medical History - General Information source: Patient - Social History Smoking Status: Current Every Day Smoker Cigarette use (# per day): Yes - ppd Chew tobacco use (# tins/day): No Smoking Education Provided: Yes - less than 2 min Frequency of alcohol use: None Drug Abuse: None Lives with: Alone - with daughter Family History: CAD, COPD, DM, Hyperlipidemia, Hypertension, Malignancy, Thyroid Disfunction, Other - Liver disease Patient has suicidal ideation: No Patient has homicidal ideation: No - Past Medical History Cardiac Medical History: Reports: Hx Peripheral Vascular Disease, Hx Heart Murmur Pulmonary Medical History: Reports: Hx Asthma EENT Medical History: Reports: None Neurological Medical History: Reports: Hx Migraine, Hx Seizures Endocrine Medical History: Reports: Hx Diabetes Mellitus Type 1, Hx Hypothyroidism Renal/ Medical History: Denies: Hx End Stage Renal Disease, Hx Kidney Stones, Hx Ovarian Cysts, Hx Peritoneal Dialysis, Hx Pelvic Inflammatory Disease Malignancy Medical History: Denies: Hx Breast Cancer, Hx Cervical Cancer, Hx Leukemia, Hx Lung Cancer, Hx Ovarian Cancer GI Medical History: Reports: Hx Gastroesophageal Reflux Disease, Hx Ulcer. Denies: Hx Crohn's Disease, Hx Hiatal Hernia, Hx Irritable Bowel, Hx Liver Failure Musculoskeltal Medical History: Denies Hx Arthritis, Denies Hx Multiple Sclerosis Skin Medical History: Reports Hx Cellulitis Psychiatric Medical History: Denies: Hx Bipolar Disorder, Hx Dementia, Hx Depression, Hx Post Traumatic Stress Disorder, Hx Schizophrenia Infectious Medical History: Denies: Hx HIV Past Surgical History: Reports: Hx Section - x 2, Hx Gynecologic Surgery - D&C, Hx Oral Surgery, Hx Tubal Ligation. Denies: Hx Appendectomy, Hx Bowel Surgery, Hx Cholecystectomy, Hx Colostomy, Hx Coronary Artery Bypass Graft , Hx Gastric Bypass Surgery, Hx Herniorrhaphy, Hx Hysterectomy, Hx Mastectomy, Hx Pacemaker, Hx Tonsillectomy - Immunizations Immunizations up to date: Yes Hx Diphtheria, Pertussis, Tetanus Vaccination: Yes Hx Pneumococcal Vaccination: 08/04/00 Physical Exam - Vital signs Vitals: Temp Pulse Resp BP Pulse Ox 97.9 F 92 16 117/74 97 12/20/16 17:44 12/20/16 17:44 12/20/16 17:44 12/20/16 17:44 12/20/16 17:44 Course - Re-evaluation Re-evalutation: 12/20/16 20:18 Discussed x-ray with patient report given to patient patient treated with Scroggins dispense back and instructed use ibuprofen after that. Patient to follow-up with orthopedics for any continued pain. - Vital Signs Vital signs: Temp Pulse Resp BP Pulse Ox 97.9 F 92 16 117/74 97 12/20/16 17:44 12/20/16 17:44 12/20/16 17:44 12/20/16 17:44 12/20/16 17:44 - Diagnostic Test Radiology reviewed: Image reviewed, Reports reviewed Procedures - Immobilization Right Ankle Time completed: 20:18 Immobilizer type: Brian wrap, Ankle stirrup Performed by: PCT Post-Proc Neuro Vasc Exam: Normal Alignment checked and good: Yes Discharge - Discharge Clinical Impression: Right ankle sprain Qualifiers: Encounter type: initial encounter Involved ligament of ankle: unspecified ligament Qualified Code(s): S93.401A - Sprain of unspecified ligament of right ankle, initial encounter Condition: Stable Disposition: HOME, SELF-CARE Additional Instructions: SPRAINED ANKLE: Your sprained ankle results from stretching or tearing of the ligaments which support the ankle. This usually results from twisting the foot inward and under. The ligaments will require time and protection in order to heal properly. Many ankle sprains are quite disabling, and should be taken seriously. The usual treatment for an ankle sprain is cold packs; protection with tape , splints, or wraps; elevation; and staying off the ankle for at least a day. As the ankle improves, you can walk IF it's not painful to bear weight. Sports are best postponed until healing is complete. More serious sprains usually require strengthening exercises after early healing. Your physician has assessed the seriousness of the ligament injury to your ankle. However, the treatment may change, depending on how your ankle progresses. If further exams were recommended, it is important that you follow through. Call the doctor if your foot becomes numb, painful, or severely swollen. BRIAN WRAP: A compression dressing (brian wrap) has been placed. This helps hold the area still. It limits swelling and internal bleeding. The wrap should be comfortably snug -- not tight. You should feel a sense of pressure, but not severe pain under the wrap. Unless the physician tells you otherwise, you can adjust the wrap for comfort. If the wrap causes symptoms suggesting it's too tight -- uncomfortable pressure, swelling or discoloration beyond the wrap, numbness, or severe pain - - you must loosen the wrap. If these symptoms don't resolve promptly, return for re-evaluation. ANKLE STIRRUP SPLINT: You are to use an ankle brace called a stirrup splint. This type of brace allows you to place greater stresses on the ankle without risk of re-injury, and is often used for more severe ankle injuries such as avulsion fractures and ligament ruptures. The splint can be worn over a sock or tape. For proper support, wear the splint with a shoe over it. It's important that the splint fit properly. Adjust the heel tension, if needed. If your splint has air bladders, peel back the bottom of each air bladder, then move the Velcro attachment of the heel strap up or down. Air bladder pressure can be adjusted by pulling up the valve at the top, threading the air tube down into the main bladder, then blowing air into the bladder or squeezing it out. The two sides of the stirrup can be moved forward or back on your ankle by changing the attachment of the main straps. If you are unable to use the ankle comfortably in the splint, return for re -evaluation. USE OF CRUTCHES: The doctor has recommended that you not bear weight at this time. You will need to use crutches. Adjust the crutches so the tops come to about two inches under the armpit while you are standing upright. Use your hands -- not your armpits -- to support your weight. To get into a chair, support yourself with one crutch on the injured side. Hold the chair with the other hand, then lower yourself while putting all your weight on the good leg. Going up stairs is `good leg up, step up, then bring up crutches and bad leg.' Down stairs is `bad leg and crutches down, then bring good leg down.' If you develop numbness or swelling in an arm or hand, you are using the crutches incorrectly. Return if you are having any problems with the crutches. ICE & ELEVATION: Apply ice packs frequently against the painful area. Many different schedules are recommended, such as "20 minutes on, 20 minutes off" or "one hour ice, two hours rest." If you need to work, you may need to go longer between ice treatments. You should plan to have the area ice packed AT LEAST one- fourth of the time. The ice should be applied over the wrap, tape, or splint, or over a layer of cloth -- not directly against the skin. Some ice bags have a built-in cloth and can be put directly on the skin. Your injured part should be elevated as much as possible over the next 48 hours. Try to keep the injury above the level of the heart. Avoid use of the injured area. Elevation and rest will decrease the swelling. USE OF [id number] IBUPROFEN: Ibuprofen (Advil, Nuprin, Medipren, Motrin IB) is a medication for fever and pain control. In addition, it has anti- inflammatory effects which may be beneficial, especially in the treatment of injuries. It's best to take ibuprofen with food. Persons with ulcer disease or allergy to aspirin should notify their physician of this before taking ibuprofen. Ibuprofen can be given every four to six hours, for a total of four doses daily. Age Pain or fever dose Antiinflammatory dose 6-8 yr 200 mg (1 tab) 200 mg (1 tab) 9-11 yr 200 mg (1 tab) 200-400 mg (1-2 tab) 11-14 yr 200-400 mg (1-2 tab) 400 mg (2 tab) 15-adult 400 mg (2 tab) 600 mg (3 tab) ORAL NARCOTIC MEDICATION: You have been given a prescription for pain control. This medication is a narcotic. It's best taken with food, as nausea can result if taken on an empty stomach. Don't operate machinery or drive within six hours of taking this medication. Do not combine this medicine with alcohol, or with any medication which can cause sedation (such as cold tablets or sleeping pills) unless you get permission from the physician. Narcotics tend to cause constipation. If possible, drink plenty of fluids and eat a diet high in fiber and fruits. Please be aware that prescription narcotics also have the potential for abuse. People become addicted to these medications because of the general sense of wellbeing that they induce. This feeling along with a significant reduction in tension, anxiety, and aggression provides a stimulating seductive quality to these drugs. Once your pain is under control, we encourage you to discard your unused narcotics. FOLLOW-UP CARE: If you have been referred to a physician for follow-up care, call the physician s office for an appointment as you were instructed or within the next two days. If you experience worsening or a significant change in your symptoms, notify the physician immediately or return to the Emergency Department at any time for re-evaluation. Referrals: NOMAN WOLFE, [ACTIVE STAFF] - Follow up as needed
[2016-12-20 20:53] VITALS: BP 115/72
== END 2016-12-20 20:52 | disposition home or self-care (01) ==
LOC: ER 17:41
DX: S93.401A Sprain of unspecified ligament of right ankle, initial encounter (principal); M25.571 Pain in right ankle and joints of right foot; M79.661 Pain in right lower leg; W17.2XXA Fall into hole, initial encounter; F17.210 Nicotine dependence, cigarettes, uncomplicated
CPT/HCPCS: 99283; 73610; L1902

== ENCOUNTER 2018-02-17 17:39 | Emergency (ER) | payer MEDICAID ==
[2018-02-17] MEDS ORDERED: ACETAMINOPHEN 325 MG TABLET PO ONE (17:57)
--- NOTE | 2018-02-17 18:00 | ER Document Report ---
ED Medical Screen (RME) - General Chief Complaint: Foot Pain Stated Complaint: FOOT SWELLING/REDNESS Time Seen by Provider: 02/17/18 17:53 Notes: RAPID MEDICAL EVALUATION DISCLOSURE I have seen this patient as part of a Rapid Medical Evaluation and, if applicable, placed any initially appropriate orders. The patient will be seen and fully evaluated, including a full history and physical exam, by a provider ( in Main ED or Fast Track) when a room becomes available. 5-year-old female PMH diabetes here with complaints of left foot pain redness and yellow discharge since yesterday. She believes she may have stepped on something and gotten something stuck inside of her foot but does not know what it could be. Pain is worse with movement. Pain is improved with minimizing movement. She has not taken anything for the symptoms. She has a history of diabetic foot ulcers. EXAM Mild erythema to dorsal distal left foot without fluctuance Mild to moderate erythema distal plantar left foot just proximal to the toes without active drainage TRAVEL OUTSIDE OF THE [place] IN LAST 30 DAYS: No - Related Data Allergies/Adverse Reactions: clarithromycin [From Biaxin] Allergy (Mild, Verified 12/20/16 17:44) Hives codeine [Codeine] Allergy (Mild, Verified 12/20/16 17:44) Hives meperidine HCl [From Demerol] Allergy (Mild, Verified 12/20/16 17:44) Hives Influenza Virus Vaccines [Influenza Virus Vaccine] Allergy (Verified 12/20/16 17 :44) Past Medical History - Past Medical History Cardiac Medical History: Reports: Hx Peripheral Vascular Disease, Hx Heart Murmur Denies: Hx Atrial Fibrillation, Hx Congestive Heart Failure, Hx Coronary Artery Disease, Hx Heart Attack, Hx Hypercholesterolemia, Hx Hypertension, Hx Pulmonary Embolism Pulmonary Medical History: Reports: Hx Asthma Denies: Hx Bronchitis, Hx COPD, Hx Pneumonia, Hx Respiratory Failure, Hx Sleep Apnea, Hx Tuberculosis Neurological Medical History: Reports: Hx Migraine, Hx Seizures. Denies: Hx Cerebrovascular Accident Endocrine Medical History: Reports: Hx Diabetes Mellitus Type 1, Hx Diabetes Mellitus Type 2, Hx Hypothyroidism. Denies: Hx Graves' Disease, Hx Hyperthyroidism Renal/ Medical History: Denies: Hx End Stage Renal Disease, Hx Kidney Stones, Hx Ovarian Cysts, Hx Peritoneal Dialysis, Hx Pelvic Inflammatory Disease Malignancy Medical History: Denies: Hx Breast Cancer, Hx Cervical Cancer, Hx Leukemia, Hx Lung Cancer, Hx Ovarian Cancer GI Medical History: Reports: Hx Gastroesophageal Reflux Disease, Hx Ulcer. Denies: Hx Crohn's Disease, Hx Hiatal Hernia, Hx Irritable Bowel, Hx Liver Failure, Hx Pancreatitis Musculoskeltal Medical History: Denies Hx Arthritis, Denies Hx Multiple Sclerosis Skin Medical History: Reports Hx Cellulitis Psychiatric Medical History: Denies: Hx Bipolar Disorder, Hx Dementia, Hx Depression, Hx Post Traumatic Stress Disorder, Hx Schizophrenia Infectious Medical History: Denies: Hx HIV Past Surgical History: Reports: Hx Section - x 2, Hx Gynecologic Surgery - D&C, Hx Oral Surgery, Hx Tubal Ligation. Denies: Hx Appendectomy, Hx Bowel Surgery, Hx Cholecystectomy, Hx Colostomy, Hx Coronary Artery Bypass Graft , Hx Gastric Bypass Surgery, Hx Herniorrhaphy, Hx Hysterectomy, Hx Mastectomy, Hx Pacemaker, Hx Tonsillectomy - Immunizations Immunizations up to date: Yes Hx Diphtheria, Pertussis, Tetanus Vaccination: Yes Physical Exam - Vital signs Vitals: Temp Pulse Resp BP Pulse Ox 98.3 F 100 20 113/75 97 02/17/18 17:45 02/17/18 17:45 02/17/18 17:45 02/17/18 17:45 02/17/18 17:45 Course - Vital Signs Vital signs: Temp Pulse Resp BP Pulse Ox 98.3 F 100 20 113/75 97 02/17/18 17:45 02/17/18 17:45 02/17/18 17:45 02/17/18 17:45 02/17/18 17:45 Doctor's Discharge - Discharge Referrals: JULIET ALEJO DO [Primary Care Provider] - Follow up as needed
--- NOTE | 2018-02-17 18:41 | RADIOLOGY REPORT (SQ) ---
EXAM DESCRIPTION: FOOT LEFT COMPLETE COMPLETED DATE/TIME: 02/17/2018 6:33 pm REASON FOR STUDY: diabetic wound; foreign body, gas, osteo? COMPARISON: None. NUMBER OF VIEWS: Three views. TECHNIQUE: AP, lateral and oblique radiographic images acquired of the left foot. LIMITATIONS: None. FINDINGS: MINERALIZATION: Normal. BONES: No acute fracture or dislocation. No worrisome bone lesions. JOINTS: No effusions. SOFT TISSUES: No soft tissue swelling. No foreign body. OTHER: No other significant finding. IMPRESSION: NEGATIVE STUDY OF THE LEFT FOOT. NO RADIOGRAPHIC EVIDENCE OF ACUTE INJURY. TECHNICAL DOCUMENTATION: JOB ID: [id number] [employer]- All Rights Reserved Reading location - IP/workstation name: [email or web address]
[2018-02-17 19:05] LABS: ABSOLUTE EOSINOPHILS # (AUTO) 0.1 10^3/uL (0.0-0.6); ABSOLUTE MONOCYTES (AUTO) 0.4 10^3/uL (0.1-1.4); BASOPHILS % (AUTO) 0.6 % (0-2); EOSINOPHILS % (AUTO) 1.1 % (0-6); HEMATOCRIT 39.8 % (36.0-47.0); HEMOGLOBIN 13.4 g/dL (12.0-15.5); MEAN CORPUSCULAR HEMOGLOBIN 27.4 pg (27.0-33.4); MEAN CORPUSCULAR HGB CONC 33.7 g/dL (32.0-36.0); MEAN CORPUSCULAR VOLUME 81 fl (80-97); MONOCYTES % (AUTO) 6.9 % (3-13); PLATELET COUNT 207 10^3/uL (150-450); RED CELL DISTRIBUTION WIDTH 17.1 % (11.5-14.0); SEGMENTED NEUTROPHILS % (AUTO) 54.4 % (42-78); TOTAL CELLS COUNTED % (AUTO) 100 %; WHITE BLOOD COUNT 5.5 10^3/uL (4.0-10.5)
[2018-02-17 19:20] LABS: ANION GAP 18 (5-19); BLOOD UREA NITROGEN 8 mg/dL (7-20); CALCIUM 9.7 mg/dL (8.4-10.2); CARBON DIOXIDE 20 mmol/L (22-30); CHLORIDE 109 mmol/L (98-107); GLUCOSE 204 mg/dL (75-110); POTASSIUM 3.8 mmol/L (3.6-5.0); SODIUM 147.1 mmol/L (137-145)
[2018-02-17 19:42] LABS: ERYTHROCYTE SEDIMENTATION RATE 24 mm/hr (0-20)
[2018-02-17] MEDS ORDERED: HYDROCODONE/ACETAMINOPHEN 5-325 MG (6 TAB/ER DISP) PO PRN (21:44)
[2018-02-17] MEDS ORDERED: SULFAMETHOXAZOLE/TRIMETHOPRIM 800-160 MG TABLET PO ONE (21:45)
[2018-02-17] MEDS ORDERED: CEPHALEXIN 500 MG CAPSULE PO ONE (21:45)
--- NOTE | 2018-02-17 21:45 | ER Document Report ---
ED Extremity Problem, Lower - General Mode of Arrival: Ambulatory Information source: Patient TRAVEL OUTSIDE OF THE [place] IN LAST 30 DAYS: No <LYNNETTE ROCA - Last Filed: 02/17/18 23:51> <SANDOVAL BERMEO - Last Filed: 02/17/18 23:57> - General Chief Complaint: Foot Pain Stated Complaint: FOOT SWELLING/REDNESS Time Seen by Provider: 02/17/18 17:53 Notes: Patient is a 32 year old female with a history of diabetes type 1 presents to the emergency department complaining of left foot pain onset today. Patient reports stepping on an object a few days ago but does not recall what. She states she saw a small black object come out of the plantar aspect of her foot while she was in the bathtub. Patient reports erythema and pain to the dorsal aspect of her left foot and reports drainage from bottom of her foot today. She denies any fevers. (LYNNETTE ROCA) - Related Data Allergies/Adverse Reactions: clarithromycin [From Biaxin] Allergy (Mild, Verified 12/20/16 17:44) Hives codeine [Codeine] Allergy (Mild, Verified 12/20/16 17:44) Hives meperidine HCl [From Demerol] Allergy (Mild, Verified 12/20/16 17:44) Hives Influenza Virus Vaccines [Influenza Virus Vaccine] Allergy (Verified 12/20/16 17 :44) Past Medical History - General Information source: Patient - Social History Smoking Status: Current Every Day Smoker Chew tobacco use (# tins/day): No Frequency of alcohol use: None Drug Abuse: None Family History: CAD, COPD, DM, Hyperlipidemia, Hypertension, Malignancy, Thyroid Disfunction, Other - Liver disease Patient has suicidal ideation: No Patient has homicidal ideation: No - Past Medical History Cardiac Medical History: Reports: Hx Peripheral Vascular Disease, Hx Heart Murmur Pulmonary Medical History: Reports: Hx Asthma Neurological Medical History: Reports: Hx Migraine, Hx Seizures Endocrine Medical History: Reports: Hx Diabetes Mellitus Type 1, Hx Hypothyroidism GI Medical History: Reports: Hx Gastroesophageal Reflux Disease, Hx Ulcer Skin Medical History: Reports Hx Cellulitis Infectious Medical History: Denies: Hx HIV Past Surgical History: Reports: Hx Section - x 2, Hx Gynecologic Surgery - D&C, Hx Oral Surgery, Hx Tubal Ligation. Denies: Hx Appendectomy, Hx Bowel Surgery, Hx Cholecystectomy, Hx Colostomy, Hx Coronary Artery Bypass Graft , Hx Gastric Bypass Surgery, Hx Herniorrhaphy, Hx Hysterectomy, Hx Mastectomy, Hx Pacemaker, Hx Tonsillectomy - Immunizations Immunizations up to date: Yes Hx Diphtheria, Pertussis, Tetanus Vaccination: Yes Hx Pneumococcal Vaccination: 08/04/00 <CHANELLELYNNETTE SU - Last Filed: 02/17/18 23:51> Review of Systems - Review of Systems Constitutional: No symptoms reported EENT: No symptoms reported Cardiovascular: No symptoms reported Respiratory: No symptoms reported Gastrointestinal: No symptoms reported Genitourinary: No symptoms reported Female Genitourinary: No symptoms reported Musculoskeletal: See HPI Skin: See HPI Hematologic/Lymphatic: No symptoms reported Neurological/Psychological: No symptoms reported -: Yes All other systems reviewed and negative <CHANELLECAYLASILVIA - Last Filed: 02/17/18 23:51> Physical Exam <LYNNETTE ROCA - Last Filed: 02/17/18 23:51> <SANDOVAL BERMEO - Last Filed: 02/17/18 23:57> - Vital signs Vitals: Temp Pulse Resp BP Pulse Ox 98.3 F 100 20 113/75 97 02/17/18 17:45 02/17/18 17:45 02/17/18 17:45 02/17/18 17:45 02/17/18 17:45 - Notes Notes: GENERAL: Alert, interacts well. No acute distress. HEAD: Normocephalic, atraumatic. EYES: Pupils equal, round, and reactive to light. Extraocular movements intact. ENT: Oral mucosa moist, tongue midline. NECK: Full range of motion. Supple. Trachea midline. LUNGS: Clear to auscultation bilaterally, no wheezes, rales, or rhonchi. No respiratory distress. HEART: Regular rate and rhythm. No murmurs, gallops, or rubs. ABDOMEN: Soft, non-tender. Non-distended. Bowel sounds present in all 4 quadrants. EXTREMITIES: Moves all 4 extremities spontaneously. Eyrthema to the dorsal aspect of left foot between the 2nd and 3rd digit. Erythema on the plantar aspect of left foot just below the 2nd and 3rd digit. Callus with break in skin on the plantar aspect of the left foot between the second and third digit. No fluctuance. No drainage able to be expressed from the wound. No edema, radial and dorsalis pedis pulses 2/4 bilaterally. No cyanosis. NEUROLOGICAL: Alert and oriented x3. Normal speech. PSYCH: Normal affect, normal mood. SKIN: Warm, dry, normal turgor. (LYNNETTE ROCA) Course - Laboratory Result Diagrams: 02/17/18 18:38 02/17/18 18:38 <LYNNETTE ROCA - Last Filed: 02/17/18 23:51> - Laboratory Result Diagrams: 02/17/18 18:38 02/17/18 18:38 <SANDOVAL BERMEO - Last Filed: 02/17/18 23:57> - Re-evaluation Re-evalutation: 02/17/18 21:47 CBC grossly unremarkable, ESR is elevated at 24, BMP shows slight low CO2 at 20 but no anion gap, glucose is elevated 204 consistent with patient's history of poorly controlled diabetes. Foot x-ray does not show any remaining fractures, does not show any subcu air or any foreign bodies. Bedside ultrasound performed by me does not show any fluid collection. There is no evidence of abscess. Patient is encouraged to use Epsom salt soaks and she states that previously there was drainage coming from this area, will be prescribed Bactrim and Keflex , asked to return to the hospital should she develop fevers, worsening pain, increasing redness or any new or concerning symptoms. Patient is also counseled to keep her foot elevated. (SANDOVAL BERMEO) - Vital Signs Vital signs: Temp Pulse Resp BP Pulse Ox 98.5 F 89 20 110/70 100 02/17/18 21:05 02/17/18 21:05 02/17/18 21:05 02/17/18 21:05 02/17/18 21:05 - Laboratory Laboratory results interpreted by me: 02/17/18 02/17/18 18:38 18:38 RDW 17.1 H ESR 24 H Sodium 147.1 H Chloride 109 H Carbon Dioxide 20 L Glucose 204 H Discharge <LYNNETTE ROCA - Last Filed: 02/17/18 23:51> <SANDOVAL BERMEO - Last Filed: 02/17/18 23:57> - Discharge Clinical Impression: Cellulitis of left foot, Hyperglycemia due to type 1 diabetes mellitus Condition: Stable Disposition: HOME, SELF-CARE Additional Instructions: Cellulitis You have an infection of your skin and underlying soft tissues called cellulitis. This is due to bacteria, which can enter through any break in the skin, or even through an irritated hair follicle. Untreated, cellulitis will usually worsen. Antibiotics are required. Usually, warm packs or warm soaks, and elevation of the infected area are recommended. You should start getting better within 24 to 36 hours. Keep your foot elevated. Most infections respond quickly to the right medication. Follow-up care is important, however, to check for abscess (boil) formation, unsuspected foreign body, or resistant infection. If you develop fever, chills, or if the area of infection is becoming rapidly more swollen or painful, call the doctor at once. Prescriptions: Cephalexin Monohydrate [Keflex 500 mg Capsule] 1,000 mg PO BID #20 capsule Sulfamethoxazole/Trimethoprim [Bactrim Ds Tablet] 1 each PO BID #10 tablet Referrals: JULIET ALEJO DO [Primary Care Provider] - Follow up in 3-5 days Scribелена Attestation: 02/17/18 23:57 I personally performed the services described in the documentation, reviewed and edited the documentation which was dictated to the scribe in my presence, and it accurately records my words and actions. (SANDOVAL BERMEO) Scribe Documentation - Scribe Written by Yosvany:: Yosvany Hernandez, 02/17/2018 21:45 acting as scribe for :: Maco <LYNNETTE ROCA - Last Filed: 02/17/18 23:51>
[2018-02-17 22:14] VITALS: BP 110/70
== END 2018-02-17 22:08 | disposition home or self-care (01) ==
LOC: ER 17:39
DX: L03.116 Cellulitis of left lower limb (principal); E10.65 Type 1 diabetes mellitus with hyperglycemia; F17.200 Nicotine dependence, unspecified, uncomplicated; E03.9 Hypothyroidism, unspecified; Z88.3 Allergy status to other anti-infective agents; Z88.6 Allergy status to analgesic agent; Z98.51 Tubal ligation status
CPT/HCPCS: 99284; 36415; 87040; 85025; 85652; 80048; 73630; J3490 ×2

== ENCOUNTER 2018-04-25 11:57 | Inpatient (IN) | payer MEDICAID ==
[2018-04-25] MEDS ORDERED: VANCOMYCIN HCL INJ 1000 MG VIAL IV ONE (12:46)
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
[2018-04-25 13:10] LABS: ABSOLUTE EOSINOPHILS # (AUTO) 0.1 10^3/uL (0.0-0.6); ABSOLUTE LYMPHOCYTES (AUTO) 1.4 10^3/uL (0.5-4.7); ABSOLUTE MONOCYTES (AUTO) 0.4 10^3/uL (0.1-1.4); ABSOLUTE NEUT (AUTO) 3.9 10^3/uL (1.7-8.2); BASOPHILS % (AUTO) 0.8 % (0-2); EOSINOPHILS % (AUTO) 1.5 % (0-6); HEMATOCRIT 35.1 % (36.0-47.0); HEMOGLOBIN 11.7 g/dL (12.0-15.5); LYMPHOCYTES % (AUTO) 23.9 % (13-45); MEAN CORPUSCULAR HEMOGLOBIN 27.5 pg (27.0-33.4); MEAN CORPUSCULAR HGB CONC 33.2 g/dL (32.0-36.0); MEAN CORPUSCULAR VOLUME 83 fl (80-97); MONOCYTES % (AUTO) 6.6 % (3-13); PLATELET COUNT 226 10^3/uL (150-450); RED BLOOD COUNT 4.25 10^6/uL (3.72-5.28); SEGMENTED NEUTROPHILS % (AUTO) 67.2 % (42-78); TOTAL CELLS COUNTED % (AUTO) 100 %; WHITE BLOOD COUNT 5.8 10^3/uL (4.0-10.5)
[2018-04-25 13:36] LABS: VENOUS BLOOD BASE EXCESS -7.6 mmol/L; VENOUS BLOOD HCO3 18.1 mmol/L (20-32); VENOUS BLOOD PCO2 37.7 mmHg (35-63); VENOUS BLOOD PH 7.3 (7.30-7.42)
[2018-04-25 13:38] LABS: ALANINE AMINOTRANSFERASE 22 U/L (9-52); ALBUMIN 4.6 g/dL (3.5-5.0); ALKALINE PHOSPHATASE 68 U/L (38-126); ANION GAP 12 (5-19); ASPARTATE AMINO TRANSFERASE 30 U/L (14-36); BILIRUBIN,DIRECT 0.3 mg/dL (0.0-0.4); BILIRUBIN,TOTAL 0.3 mg/dL (0.2-1.3); BLOOD UREA NITROGEN 11 mg/dL (7-20); C-REACTIVE PROTEIN 56.3 mg/L (<10.0); CALCIUM 10.4 mg/dL (8.4-10.2); CARBON DIOXIDE 20 mmol/L (22-30); CHLORIDE 107 mmol/L (98-107); GLUCOSE 158 mg/dL (75-110); POTASSIUM 4.3 mmol/L (3.6-5.0); SODIUM 138.8 mmol/L (137-145); TOTAL PROTEIN 8.6 g/dL (6.3-8.2)
--- NOTE | 2018-04-25 13:47 | RADIOLOGY REPORT (SQ) ---
EXAM DESCRIPTION: FOOT RIGHT 2 VIEWS COMPLETED DATE/TIME: 04/25/2018 1:29 pm REASON FOR STUDY: infection after stepping on something COMPARISON: None. NUMBER OF VIEWS: Three views. TECHNIQUE: AP, lateral and oblique radiographic images acquired of the right foot. LIMITATIONS: None. FINDINGS: MINERALIZATION: Normal. BONES: No acute fracture or dislocation. No worrisome bone lesions. JOINTS: No effusions. SOFT TISSUES: No soft tissue swelling. No foreign body. OTHER: No other significant finding. IMPRESSION: NEGATIVE STUDY OF THE RIGHT FOOT. NO RADIOGRAPHIC EVIDENCE OF ACUTE INJURY. TECHNICAL DOCUMENTATION: JOB ID: [id number] [employer]- All Rights Reserved Reading location - IP/workstation name: [email or web address]
[2018-04-25 13:51] LABS: ERYTHROCYTE SEDIMENTATION RATE 47 mm/hr (0-20)
[2018-04-25] MEDS ORDERED: LEVOFLOXACIN 500 MG/D5W RTU 500 MG/100 ML RTUPB IV ONE (14:19)
[2018-04-25] MEDS ORDERED: METRONIDAZOLE 500 MG/NS RTU 500 MG/100 ML RTUPB IV ONE (14:21)
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
[2018-04-25] MEDS ORDERED: NORMAL SALINE 1000 ML 2,000 ML IV ONE (15:06)
[2018-04-25] MEDS ORDERED: NORMAL SALINE 1000 ML 1,000 ML IV PRN (15:06)
[2018-04-25] MEDS ORDERED: DEXTROSE 50%-WATER 25 GM/50 ML DISP.SYRIN IV PRN ×2 (15:09)
[2018-04-25] MEDS ORDERED: GLUCAGON,HUMAN RECOMB 1 MG INJ SUBCUT PRN (15:09)
[2018-04-25] MEDS ORDERED: DEXTROSE 40% GEL 15 GM TUBE PO PRN ×3 (15:09→18:45)
[2018-04-25] MEDS ORDERED: ONDANSETRON 4 MG TAB.RAPDIS PO PRN (15:24)
--- NOTE | 2018-04-25 16:07 | RADIOLOGY REPORT (SQ) ---
EXAM DESCRIPTION: MRI RT LOWER EXTREMITY WITHOUT COMPLETED DATE/TIME: 04/25/2018 3:57 pm REASON FOR STUDY: right foot infection COMPARISON: Right foot three views 04/25/2018 TECHNIQUE: T1-weighted, T2-weighted, and gradient echo noncontrast multiplanar imaging of the right foot. LIMITATIONS: None. FINDINGS: MARROW SIGNAL: No marrow signal alteration. No occult fracture. No evidence for osteo ne crosis. JOINT EFFUSION: No significant effusions. PLANTAR FASCIA: Normal as visualized. TARSOMETATARSAL AND TOE ARTICULATIONS: Anatomic. Mild degenerative changes first metatarsal phalange al joint. INTERMETATARSAL SPACES AND PLANTAR PLATES: Intact. No soft tissue mass to suggest a neuroma. SOFT TISSUES: There diffuse forefoot soft tissue edema in the subcutaneous fat. There is edema in th e intra osseous muscles and flexor digitorum brevis muscles in the plantar foot without abscess. OTHER: No other significant finding. IMPRESSION: No marrow signal abnormalities worrisome for osteomyelitis. There is extensive forefoot cellulitis with edema throughout the subcutaneous tissues and intra osseous muscles/flexor digitorum brevis muscles. No deep tissue abscess is identified. TECHNICAL DOCUMENTATION: JOB ID: [id number] [employer]- All Rights Reserved Reading location - IP/workstation name: [facility]
[2018-04-25] MEDS: ENOXAPARIN SODIUM INJ 30 MG/0.3 ML DISP.SYRIN SUBCUT SCH (18:14)
[2018-04-25] MEDS: TRAMADOL HCL 50 MG TABLET PO PRN (18:16)
[2018-04-25] MEDS: ACETAMINOPHEN 325 MG TABLET PO PRN (18:16)
[2018-04-25] MEDS: NORMAL SALINE 1000 ML 1,000 ML IV PRN (21:56)
[2018-04-25] MEDS ORDERED: GABAPENTIN 400 MG CAPSULE ONE (22:32)
[2018-04-25] MEDS ORDERED: ROPINIROLE HCL 0.25 MG TABLET ONE (22:32)
[2018-04-25] MEDS: GABAPENTIN 400 MG CAPSULE PO SCH (22:41)
[2018-04-25] MEDS: ROPINIROLE HCL 0.25 MG TABLET PO SCH (22:42)
[2018-04-26] MEDS ORDERED: VANCOMYCIN HCL 0 MG in DEXTROSE 5%-WATER 250 ML IV NR (05:15)
[2018-04-26] MEDS: GABAPENTIN 400 MG CAPSULE PO SCH ×3 (05:16→21:56)
[2018-04-26] MEDS: LANSOPRAZOLE 30 MG TAB.RAP.DR PO SCH (05:17)
[2018-04-26] MEDS: LEVOTHYROXINE SODIUM 0.1 MG TABLET PO SCH (05:17)
[2018-04-26] MEDS ORDERED: VANCOMYCIN HCL IV NR (05:19)
[2018-04-26] MEDS ORDERED: NORMAL SALINE IV NR (05:19)
[2018-04-26] MEDS: INSULIN LISPRO 100 UNIT/ML 3 ML VIAL SUBCUT PRN ×3 (05:27→19:54)
[2018-04-26] MEDS: NORMAL SALINE 1000 ML 1,000 ML IV PRN (05:31)
[2018-04-26] MEDS ORDERED: PIPERACILLIN/TAZOBACTAM 3.375 GM VIAL IV PRN (05:54)
[2018-04-26] MEDS ORDERED: PIPERACILLIN SODIUM/TAZOBACTAM 3.375 GM in NORMAL SALINE 100 ML IV SCH (06:00)
[2018-04-26 07:26] LABS: HEMATOCRIT 32.6 % (36.0-47.0); HEMOGLOBIN 10.9 g/dL (12.0-15.5); MEAN CORPUSCULAR HEMOGLOBIN 27.5 pg (27.0-33.4); MEAN CORPUSCULAR HGB CONC 33.5 g/dL (32.0-36.0); MEAN CORPUSCULAR VOLUME 82 fl (80-97); PLATELET COUNT 194 10^3/uL (150-450); RED BLOOD COUNT 3.96 10^6/uL (3.72-5.28); RED CELL DISTRIBUTION WIDTH 15.3 % (11.5-14.0); WHITE BLOOD COUNT 3.8 10^3/uL (4.0-10.5)
[2018-04-26 07:34] LABS: ANION GAP 9 (5-19); BLOOD UREA NITROGEN 8 mg/dL (7-20); CALCIUM 9.3 mg/dL (8.4-10.2); CARBON DIOXIDE 21 mmol/L (22-30); CHLORIDE 111 mmol/L (98-107); GLUCOSE 120 mg/dL (75-110); PHOSPHORUS 3.6 mg/dL (2.5-4.5); POTASSIUM 4.4 mmol/L (3.6-5.0); SODIUM 140.6 mmol/L (137-145)
[2018-04-26] MEDS: ACETAMINOPHEN 325 MG TABLET PO PRN (07:53)
[2018-04-26] MEDS: TRAMADOL HCL 50 MG TABLET PO PRN (07:53)
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
[2018-04-26] MEDS ORDERED: DEXTROSE 5%-NORMAL SALINE 1,000 ML IV PRN (08:55)
[2018-04-26] MEDS: PIPERACILLIN SODIUM/TAZOBACTAM 3.375 GM in NORMAL SALINE 100 ML IV SCH ×3 (09:58→21:56)
[2018-04-26] MEDS ORDERED: (PENDING PHARMACY ID) (Esomeprazole Mag Trihydrate [Nexium] 40 MG) PO SCH (10:00)
[2018-04-26] MEDS: ENOXAPARIN SODIUM INJ 30 MG/0.3 ML DISP.SYRIN SUBCUT SCH (11:05)
[2018-04-26] MEDS: VANCOMYCIN HCL 1,000 MG in DEXTROSE 5%-WATER 250 ML IV SCH ×2 (11:33→23:13)
[2018-04-26] MEDS ORDERED: IBUPROFEN 600 MG TABLET PO PRN (14:09)
--- NOTE | 2018-04-26 14:53 | PDOC PROGRESS REPORT ---
Subjective Progress Note for:: 04/26/18 Subjective:: right foot discomfort Reason For Visit: CELLULITIS Physical Exam Vital Signs: Temp Pulse Resp BP Pulse Ox 97.7 F 65 16 101/57 L 93 04/26/18 11:25 04/26/18 11:25 04/26/18 11:25 04/26/18 11:25 04/26/18 11:25 Intake & Output 04/25/18 04/26/18 04/27/18 06:59 06:59 06:59 Intake Total 1300 100 Balance 1300 100 Weight 70.2 kg General appearance: PRESENT: no acute distress Extremities exam: PRESENT: other - Right foot: edema, slight tenderness Results Laboratory Results: 04/26/18 07:00 04/26/18 07:00 04/26/18 04/26/18 07:00 07:00 WBC 3.8 L RBC 3.96 Hgb 10.9 L Hct 32.6 L MCV 82 MCH 27.5 MCHC 33.5 RDW 15.3 H Plt Count 194 Sodium 140.6 Potassium 4.4 Chloride 111 H Carbon Dioxide 21 L Anion Gap 9 BUN 8 Creatinine 0.79 Est GFR ( Amer) > 60 Est GFR (Non-Af Amer) > 60 Glucose 120 H Calcium 9.3 Phosphorus 3.6 Impressions: Foot X-Ray 04/25/18 12:45 IMPRESSION: NEGATIVE STUDY OF THE RIGHT FOOT. NO RADIOGRAPHIC EVIDENCE OF ACUTE INJURY. Lower Extremity MRI 04/25/18 14:29 IMPRESSION: No marrow signal abnormalities worrisome for osteomyelitis. There is extensive forefoot cellulitis with edema throughout the subcutaneous tissues and intra osseous muscles/flexor digitorum brevis muscles. No deep tissue abscess is identified. Assessment & Plan - Diagnosis (1) Diabetic foot infection Is this a current diagnosis for this admission?: Yes - Plan Summary Plan Summary: A/ Right foot cellulitis MRI negative for osteo or fluid collection P/ No General Surgery issue identified and no procedure planned Recommend to use IV Abx until resolution of the cellulitis I will sign off. Please, call me with questions.
--- NOTE | 2018-04-26 17:01 | PDOC PROGRESS REPORT ---
Subjective Progress Note for:: 04/26/18 Subjective:: CHRISTIANO ST is a 32 year old female with a PMH of IDDM presented to the ED with R foot pain and swelling. Admit to hospitalist service for treatment of cellulitis to the R foot and management of IDDM. Surgery was consulted. The patient was seen this morning on rounds, she is resting comfortably in bed on room air. The condition of her R foot has greatly improved - decreased erythema and edema. Erythema is now isolated to the dorsal and lateral aspects of the R foot, no longer circumfrential. Improved ROM of all 5 toes. Leukocytosis improved. Patient has remained afebrile and nontoxic appearing. The patient was evaluated by Surgery, who felt she did not need an I&D. Dr. Murray has signed off. Plan to continue IV antibiotics and IVF. Reason For Visit: CELLULITIS Physical Exam Vital Signs: Temp Pulse Resp BP Pulse Ox 98.3 F 72 18 97/59 L 95 04/26/18 15:53 04/26/18 15:53 04/26/18 15:53 04/26/18 15:53 04/26/18 15:53 Intake & Output 04/25/18 04/26/18 04/27/18 06:59 06:59 06:59 Intake Total 1300 450 Balance 1300 450 Weight 70.2 kg General appearance: PRESENT: no acute distress, well-developed, well-nourished Head exam: PRESENT: atraumatic, normocephalic Eye exam: PRESENT: conjunctiva pink, EOMI, PERRLA. ABSENT: scleral icterus Ear exam: PRESENT: normal external ear exam Mouth exam: PRESENT: moist, tongue midline Teeth exam: PRESENT: poor dentation Neck exam: ABSENT: carotid bruit, JVD, lymphadenopathy, thyromegaly Respiratory exam: PRESENT: clear to auscultation boubacar. ABSENT: rales, rhonchi, wheezes Cardiovascular exam: PRESENT: RRR, +S1, +S2. ABSENT: diastolic murmur, rubs, systolic murmur Pulses: PRESENT: normal radial pulses, normal dorsalis pedis pul Vascular exam: PRESENT: normal capillary refill GI/Abdominal exam: PRESENT: soft. ABSENT: distended, guarding, mass, organolmegaly, rebound, tenderness Rectal exam: PRESENT: deferred Extremities exam: PRESENT: full ROM, tenderness - R FOOT, +1 edema - R FOOT. ABSENT: calf tenderness, clubbing, pedal edema Musculoskeletal exam: PRESENT: ambulatory, full ROM, tenderness - R FOOT. ABSENT: normal inspection Neurological exam: PRESENT: alert, awake, oriented to person, oriented to place , oriented to time, oriented to situation Psychiatric exam: PRESENT: appropriate affect, normal mood. ABSENT: homicidal ideation, suicidal ideation Skin exam: PRESENT: dry, intact, warm. ABSENT: cyanosis, rash Results Laboratory Results: 04/26/18 07:00 04/26/18 07:00 04/26/18 04/26/18 07:00 07:00 WBC 3.8 L RBC 3.96 Hgb 10.9 L Hct 32.6 L MCV 82 MCH 27.5 MCHC 33.5 RDW 15.3 H Plt Count 194 Sodium 140.6 Potassium 4.4 Chloride 111 H Carbon Dioxide 21 L Anion Gap 9 BUN 8 Creatinine 0.79 Est GFR ( Amer) > 60 Est GFR (Non-Af Amer) > 60 Glucose 120 H Calcium 9.3 Phosphorus 3.6 Impressions: Foot X-Ray 04/25/18 12:45 IMPRESSION: NEGATIVE STUDY OF THE RIGHT FOOT. NO RADIOGRAPHIC EVIDENCE OF ACUTE INJURY. Lower Extremity MRI 04/25/18 14:29 IMPRESSION: No marrow signal abnormalities worrisome for osteomyelitis. There is extensive forefoot cellulitis with edema throughout the subcutaneous tissues and intra osseous muscles/flexor digitorum brevis muscles. No deep tissue abscess is identified. Status: Imported from PACS Assessment & Plan - Diagnosis (1) Foot infection Is this a current diagnosis for this admission?: Yes Plan: Puncture wound on plantar surface of the R foot Pus surrounding puncture wound Erythema and edema to R foot extending up to the ankle Blood cultures pending R foot XRAY negative R foot MRI shows soft tissue edema throughout the SC tissues and intra osseous muscles/flexor digitorum brevis muscles. No marrow signal abnormalities concerning for osteomyelitis. Vancomycin, levaquin and flagyl administered in the ED Continue with broad spectrum coverage using Vancomycin and Zosyn as diabetic ulcers tend to be polymicrobial Maintenance IVF Surgery consulted, no plans to I&D given significant improvement with antibiotics & no evidence of abscess on MRI - Dr Murray signed off (2) IDDM (insulin dependent diabetes mellitus) Is this a current diagnosis for this admission?: Yes Plan: Patient has a hx of IDDM Uses Entresto and SSI at home Accuchecks ACHS Continue with Humalog SSI Hold Entresto for now Hgb A1c 10% - patient admits to noncompliance with diabetes treatment. States she 'gets [her] diabetes under control for a while and something will happen' that results in her blood glucose rising Requesting academic assistant to meet with patient - Time Time Spent with patient: 15-24 minutes Smoking Cessation Education: 3 to 10 minutes Anticipated discharge: Home - Inpatient Certification Based on my medical assessment, after consideration of the patient's comorbidities, presenting symptoms, or acuity I expect that the services needed warrant INPATIENT care.: Yes I certify that my determination is in accordance with my understanding of Medicare's requirements for reasonable and necessary INPATIENT services [42 CFR 412.3e].: Yes Medical Necessity: Need for IV Antibiotics, Risk of Complication if Not Cared For in Hospital - Plan Summary Plan Summary: CONTINUE IV ABX.
[2018-04-26] MEDS: ROPINIROLE HCL 0.25 MG TABLET PO SCH (21:56)
[2018-04-27] MEDS: INSULIN LISPRO 100 UNIT/ML 3 ML VIAL SUBCUT PRN ×4 (01:05→22:05)
[2018-04-27] MEDS: PIPERACILLIN SODIUM/TAZOBACTAM 3.375 GM in NORMAL SALINE 100 ML IV SCH ×4 (03:07→21:43)
[2018-04-27] MEDS: LANSOPRAZOLE 30 MG TAB.RAP.DR PO SCH (06:30)
[2018-04-27] MEDS: LEVOTHYROXINE SODIUM 0.1 MG TABLET PO SCH (06:30)
[2018-04-27] MEDS: GABAPENTIN 400 MG CAPSULE PO SCH ×3 (06:30→22:04)
[2018-04-27] MEDS ORDERED: INSULIN REG, HUMAN 100 UNIT/ML 3 ML VIAL (PYX) SUBCUT ONE (12:00)
[2018-04-27] MEDS ORDERED: INSULIN LISPRO 100 UNIT/ML 3 ML VIAL ONE (12:05)
[2018-04-27] MEDS: ENOXAPARIN SODIUM INJ 30 MG/0.3 ML DISP.SYRIN SUBCUT SCH (12:07)
[2018-04-27] MEDS: VANCOMYCIN HCL 1,000 MG in DEXTROSE 5%-WATER 250 ML IV SCH ×2 (12:08→22:47)
[2018-04-27] MEDS ORDERED: INSULIN LISPRO 100 UNIT/ML 3 ML VIAL SUBCUT ONE (12:15)
[2018-04-27] MEDS: INSULIN GLARGINE,HUM.REC.ANLOG 300 UNIT/3 ML INSULN.PEN SUBCUT SCH (17:53)
--- NOTE | 2018-04-27 18:05 | PDOC PROGRESS REPORT ---
Subjective Progress Note for:: 04/27/18 Subjective:: CHRISTIANO ST is a 32 year old female with a PMH of IDDM presented to the ED with R foot pain and swelling. Admit to hospitalist service for treatment of cellulitis to the R foot and management of IDDM. Surgery was consulted. The patient was seen this morning on rounds, she is resting comfortably in bed on room air. The condition of her R foot has continues to improve decreased erythema and edema. Erythema is now isolated to the dorsal aspect of the R foot , no longer circumfrential. Improved ROM of all 5 toes. Leukocytosis improved. Patient has remained afebrile and nontoxic appearing. Nursing staff expressed concern regarding the patient's poorly controlled blood glucose, despite sliding scale coverage. The patient reports that her PMD has had difficulty placing her on a regimen that adequately controls her blood glucose, although, the patient also admits to intermittent medication noncompliance. This is evident by her HGBA1C 10%. After reviewing 24 hour insulin requirements, plan to initiate daily subcutaneous Lantus. Plan to continue IV antibiotics and initiate SC Lantus Reason For Visit: CELLULITIS Physical Exam Vital Signs: Temp Pulse Resp BP Pulse Ox 98.1 F 73 16 103/65 96 04/27/18 16:00 04/27/18 16:00 04/27/18 16:00 04/27/18 16:00 04/27/18 16:00 Intake & Output 04/26/18 04/27/18 04/28/18 06:59 06:59 06:59 Intake Total 1300 900 580 Balance 1300 900 580 Weight 70.2 kg General appearance: PRESENT: no acute distress, well-developed, well-nourished Head exam: PRESENT: atraumatic, normocephalic Eye exam: PRESENT: conjunctiva pink, EOMI, PERRLA. ABSENT: scleral icterus Ear exam: PRESENT: normal external ear exam Mouth exam: PRESENT: moist, tongue midline Teeth exam: PRESENT: poor dentation Neck exam: ABSENT: carotid bruit, JVD, lymphadenopathy, thyromegaly Respiratory exam: PRESENT: clear to auscultation boubacar. ABSENT: rales, rhonchi, wheezes Cardiovascular exam: PRESENT: RRR. ABSENT: diastolic murmur, rubs, systolic murmur Pulses: PRESENT: normal radial pulses, normal dorsalis pedis pul Vascular exam: PRESENT: normal capillary refill GI/Abdominal exam: PRESENT: normal bowel sounds, soft. ABSENT: distended, guarding, mass, organolmegaly, rebound, tenderness Rectal exam: PRESENT: deferred Extremities exam: PRESENT: full ROM, tenderness - Right foot, +1 edema - Right foot. ABSENT: calf tenderness, clubbing, pedal edema Musculoskeletal exam: PRESENT: ambulatory, full ROM Neurological exam: PRESENT: alert, awake, oriented to person, oriented to place , oriented to time, oriented to situation Psychiatric exam: PRESENT: appropriate affect, normal mood Skin exam: PRESENT: dry, erythema - Right foot, intact, warm, other - Puncture wound to plantar surface of right foot. ABSENT: cyanosis, rash Results Laboratory Results: 04/26/18 07:00 04/26/18 07:00 Impressions: Foot X-Ray 04/25/18 12:45 IMPRESSION: NEGATIVE STUDY OF THE RIGHT FOOT. NO RADIOGRAPHIC EVIDENCE OF ACUTE INJURY. Lower Extremity MRI 04/25/18 14:29 IMPRESSION: No marrow signal abnormalities worrisome for osteomyelitis. There is extensive forefoot cellulitis with edema throughout the subcutaneous tissues and intra osseous muscles/flexor digitorum brevis muscles. No deep tissue abscess is identified. Status: Imported from PACS Assessment & Plan - Diagnosis (1) Foot infection Is this a current diagnosis for this admission?: Yes Plan: Puncture wound on plantar surface of the R foot Pus surrounding puncture wound Erythema and edema to R foot extending up to the ankle Blood cultures no growth 2 days R foot XRAY negative R foot MRI shows soft tissue edema throughout the SC tissues and intra osseous muscles/flexor digitorum brevis muscles. No marrow signal abnormalities concerning for osteomyelitis. Vancomycin, levaquin and flagyl administered in the ED Continue with broad spectrum coverage using Vancomycin and Zosyn as diabetic ulcers tend to be polymicrobial Maintenance IVF Surgery consulted, no plans to I&D given significant improvement with antibiotics & no evidence of abscess on MRI - Dr Murray signed off (2) IDDM (insulin dependent diabetes mellitus) Is this a current diagnosis for this admission?: Yes Plan: Patient has a hx of IDDM Uses Entresto and SSI at home Accuchecks ACHS Continue with Humalog SSI Hold Entresto for now Hgb A1c 10% - patient admits to noncompliance with diabetes treatment. States she 'gets [her] diabetes under control for a while and something will happen' that results in her blood glucose rising Requesting elementary educator to meet with patient Initiate subcutaneous Lantus for persistent hyperglycemia, uncontrolled with just Humalog sliding scale insulin - Time Time Spent with patient: 15-24 minutes Medications reviewed and adjusted accordingly: Yes Anticipated discharge: Home Within: within 24 hours - Inpatient Certification Based on my medical assessment, after consideration of the patient's comorbidities, presenting symptoms, or acuity I expect that the services needed warrant INPATIENT care.: Yes I certify that my determination is in accordance with my understanding of Medicare's requirements for reasonable and necessary INPATIENT services [42 CFR 412.3e].: Yes Medical Necessity: Need for IV Antibiotics - Plan Summary Plan Summary: Continue IV antibiotics. Initiate subcutaneous LANTUS. Monitor blood glucose closely. Likely appropriate for discharge home tomorrow.
[2018-04-27] MEDS: ROPINIROLE HCL 0.25 MG TABLET PO SCH (22:04)
[2018-04-27] MEDS: TRAMADOL HCL 50 MG TABLET PO PRN (22:04)
[2018-04-27 22:16] LABS: VANCOMYCIN,TROUGH 10.4 ug/mL (5.0-20.0)
[2018-04-28] MEDS: PIPERACILLIN SODIUM/TAZOBACTAM 3.375 GM in NORMAL SALINE 100 ML IV SCH (03:48)
[2018-04-28] MEDS: LANSOPRAZOLE 30 MG TAB.RAP.DR PO SCH (05:57)
[2018-04-28] MEDS: LEVOTHYROXINE SODIUM 0.1 MG TABLET PO SCH (05:57)
[2018-04-28] MEDS: GABAPENTIN 400 MG CAPSULE PO SCH ×2 (05:57→13:34)
[2018-04-28] MEDS: INSULIN LISPRO 100 UNIT/ML 3 ML VIAL SUBCUT PRN ×2 (08:22→13:34)
[2018-04-28] MEDS ORDERED: CIPROFLOXACIN HCL 750 MG TABLET PO SCH (10:00)
[2018-04-28] MEDS: ENOXAPARIN SODIUM INJ 30 MG/0.3 ML DISP.SYRIN SUBCUT SCH (10:05)
[2018-04-28] MEDS: INSULIN GLARGINE,HUM.REC.ANLOG 300 UNIT/3 ML INSULN.PEN SUBCUT SCH (10:09)
[2018-04-28] MEDS ORDERED: TETANUS/DIPHTHERIA TOX-ADULT 0.5 ML SYR (>=7YO) IM ONE (12:39)
[2018-04-28 12:53] VITALS: BP 103/65
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
== END 2018-04-28 13:59 | disposition home or self-care (01) | DRG 603 ==
LOC: ER 11:57 → EH 14:41 → 2S 17:27
PROVIDERS: ADMIT Emergency Medicine; ATTEND Emergency Medicine
DX: L03.115 Cellulitis of right lower limb (principal); S91.331A Puncture wound without foreign body, right foot, initial encounter; E11.628 Type 2 diabetes mellitus with other skin complications; K21.9 Gastro-esophageal reflux disease without esophagitis; E03.9 Hypothyroidism, unspecified; W22.09XA Striking against other stationary object, initial encounter; W45.0XXA Nail entering through skin, initial encounter; Y93.19 Activity, other involving water and watercraft; E11.42 Type 2 diabetes mellitus with diabetic polyneuropathy; J45.909 Unspecified asthma, uncomplicated; G43.909 Migraine, unspecified, not intractable, without status migrainosus; F17.210 Nicotine dependence, cigarettes, uncomplicated; E11.51 Type 2 diabetes mellitus with diabetic peripheral angiopathy without gangrene; Z91.14 Patient's other noncompliance with medication regimen; Z79.4 Long term (current) use of insulin; Z79.899 Other long term (current) drug therapy; Z88.6 Allergy status to analgesic agent; Z88.3 Allergy status to other anti-infective agents; Z88.7 Allergy status to serum and vaccine; Z82.49 Family history of ischemic heart disease and other diseases of the circulatory system; Z83.6 Family history of other diseases of the respiratory system; Z83.3 Family history of diabetes mellitus; Z80.9 Family history of malignant neoplasm, unspecified; Z83.49 Family history of other endocrine, nutritional and metabolic diseases
CPT/HCPCS: 36415; 80048; 80053; 80202; 82565; 82803; 82962; 83036; 83605; 84100; 85025; 85027; 85652; 86140; 87040; 90714; 96374; 99291; J1650; J1815; J1956; J2543; J3370; J3490; J7060; S0119

== ENCOUNTER 2018-06-12 11:24 | Observation (INO) | payer MEDICAID ==
[2018-06-12] MEDS ORDERED: NORMAL SALINE 1000 ML 1,000 ML IV ONE ×2 (12:06→13:07)
[2018-06-12] MEDS ORDERED: NORMAL SALINE 1000 ML 1,000 ML IV PRN (12:06)
--- NOTE | 2018-06-12 12:08 | ER Document Report ---
ED Medical Screen (RME) - General Chief Complaint: Fever Stated Complaint: BODY PAIN Time Seen by Provider: 06/12/18 12:06 Notes: 32 years old female with type 1 diabetes, multiple other medical problems including hypothyroidism, fatty liver, peripheral neuropathy, presents today with generalized body aches and pain fever. Nauseous no vomiting. Denies any diarrhea dysuria frequency urgency. TRAVEL OUTSIDE OF THE [place] IN LAST 30 DAYS: No - Related Data Allergies/Adverse Reactions: clarithromycin [From Biaxin] Allergy (Mild, Verified 06/12/18 11:33) Hives codeine [Codeine] Allergy (Mild, Verified 06/12/18 11:33) Hives meperidine HCl [From Demerol] Allergy (Mild, Verified 06/12/18 11:33) Hives Influenza Virus Vaccines [Influenza Virus Vaccine] Allergy (Verified 06/12/18 11 :33) Past Medical History - Past Medical History Cardiac Medical History: Reports: Hx Peripheral Vascular Disease, Hx Heart Murmur Denies: Hx Atrial Fibrillation, Hx Congestive Heart Failure, Hx Coronary Artery Disease, Hx Heart Attack, Hx Hypercholesterolemia, Hx Hypertension, Hx Pulmonary Embolism Pulmonary Medical History: Reports: Hx Asthma Denies: Hx Bronchitis, Hx COPD, Hx Pneumonia, Hx Respiratory Failure, Hx Sleep Apnea, Hx Tuberculosis Neurological Medical History: Reports: Hx Migraine, Hx Seizures. Denies: Hx Cerebrovascular Accident Endocrine Medical History: Reports: Hx Diabetes Mellitus Type 1, Hx Diabetes Mellitus Type 2, Hx Hypothyroidism. Denies: Hx Graves' Disease, Hx Hyperthyroidism Renal/ Medical History: Denies: Hx End Stage Renal Disease, Hx Kidney Stones, Hx Ovarian Cysts, Hx Peritoneal Dialysis, Hx Pelvic Inflammatory Disease Malignancy Medical History: Denies: Hx Breast Cancer, Hx Cervical Cancer, Hx Leukemia, Hx Lung Cancer, Hx Ovarian Cancer GI Medical History: Reports: Hx Gastroesophageal Reflux Disease, Hx Ulcer. Denies: Hx Crohn's Disease, Hx Hiatal Hernia, Hx Irritable Bowel, Hx Liver Failure, Hx Pancreatitis Musculoskeltal Medical History: Denies Hx Arthritis, Denies Hx Multiple Sclerosis Skin Medical History: Reports Hx Cellulitis Psychiatric Medical History: Denies: Hx Bipolar Disorder, Hx Dementia, Hx Depression, Hx Post Traumatic Stress Disorder, Hx Schizophrenia Infectious Medical History: Denies: Hx HIV Past Surgical History: Reports: Hx Section - x 2, Hx Gynecologic Surgery - D&C, Hx Oral Surgery, Hx Tubal Ligation. Denies: Hx Appendectomy, Hx Bowel Surgery, Hx Cholecystectomy, Hx Colostomy, Hx Coronary Artery Bypass Graft , Hx Gastric Bypass Surgery, Hx Herniorrhaphy, Hx Hysterectomy, Hx Mastectomy, Hx Pacemaker, Hx Tonsillectomy - Immunizations Immunizations up to date: Yes Hx Diphtheria, Pertussis, Tetanus Vaccination: Yes Physical Exam - Vital signs Vitals: Temp Pulse Resp BP Pulse Ox 98.5 F 108 H 20 104/59 L 100 06/12/18 11:43 06/12/18 11:43 06/12/18 11:43 06/12/18 11:43 06/12/18 11:43 Course - Vital Signs Vital signs: Temp Pulse Resp BP Pulse Ox 98.5 F 108 H 20 104/59 L 100 06/12/18 11:43 06/12/18 11:43 06/12/18 11:43 06/12/18 11:43 06/12/18 11:43 Doctor's Discharge - Discharge Referrals: JULIET ALEJO DO [Primary Care Provider] - Follow up as needed
[2018-06-12] MEDS ORDERED: ONDANSETRON HCL INJ/PF 4 MG/2 ML SDV IV ONE (12:42)
[2018-06-12 12:43] LABS: HEMATOCRIT 36.6 % (36.0-47.0); HEMOGLOBIN 12.4 g/dL (12.0-15.5); MEAN CORPUSCULAR HEMOGLOBIN 27.4 pg (27.0-33.4); MEAN CORPUSCULAR HGB CONC 33.8 g/dL (32.0-36.0); MEAN CORPUSCULAR VOLUME 81 fl (80-97); PLATELET COUNT 173 10^3/uL (150-450); RED BLOOD COUNT 4.51 10^6/uL (3.72-5.28); RED CELL DISTRIBUTION WIDTH 16.5 % (11.5-14.0); VENOUS BLOOD PH 7.34 (7.30-7.42); WHITE BLOOD COUNT 10.3 10^3/uL (4.0-10.5)
[2018-06-12 12:44] LABS: VENOUS BLOOD BASE EXCESS -2.6 mmol/L; VENOUS BLOOD HCO3 23.3 mmol/L (20-32)
--- NOTE | 2018-06-12 12:53 | ER Document Report ---
ED General - General Chief Complaint: Fever Stated Complaint: BODY PAIN Time Seen by Provider: 06/12/18 12:06 Notes: Patient says she thinks she is in DKA. She is an insulin-dependent diabetic and says that she feels dehydrated, shaky, and pain all over her body. Her symptoms began during the night and this morning and says she felt fine but when she went to bed last night. Has been taking her medications as prescribed , Triceba 30 units twice a day and NovoLog sliding scale. Patient has been nauseated but has not been vomiting. No diarrhea. Had a low-grade fever this morning of 100.4. Has some back pain, but no other symptoms of a UTI. Patient has had her tubes tied. LMP was mid May. On gabapentin for pain in her legs due to neuropathy. On a new medication for restless leg syndrome. Migraine headache. Thyroid disease. TRAVEL OUTSIDE OF THE [place] IN LAST 30 DAYS: No - Related Data Allergies/Adverse Reactions: clarithromycin [From Biaxin] Allergy (Mild, Verified 06/12/18 11:33) Hives codeine [Codeine] Allergy (Mild, Verified 06/12/18 11:33) Hives meperidine HCl [From Demerol] Allergy (Mild, Verified 06/12/18 11:33) Hives Influenza Virus Vaccines [Influenza Virus Vaccine] Allergy (Verified 06/12/18 11 :33) Past Medical History - Social History Smoking Status: Current Every Day Smoker Chew tobacco use (# tins/day): No Frequency of alcohol use: None Drug Abuse: None Family History: CAD, COPD, DM, Hyperlipidemia, Hypertension, Malignancy, Thyroid Disfunction, Other - Liver disease Patient has suicidal ideation: No Patient has homicidal ideation: No - Past Medical History Cardiac Medical History: Reports: Hx Peripheral Vascular Disease, Hx Heart Murmur Pulmonary Medical History: Reports: Hx Asthma Neurological Medical History: Reports: Hx Migraine, Hx Seizures Endocrine Medical History: Reports: Hx Diabetes Mellitus Type 1, Hx Diabetes Mellitus Type 2, Hx Hypothyroidism GI Medical History: Reports: Hx Gastroesophageal Reflux Disease, Hx Ulcer Skin Medical History: Reports Hx Cellulitis Infectious Medical History: Denies: Hx HIV Past Surgical History: Reports: Hx Section - x 2, Hx Gynecologic Surgery - D&C, Hx Oral Surgery, Hx Tubal Ligation - Immunizations Immunizations up to date: Yes Hx Diphtheria, Pertussis, Tetanus Vaccination: Yes Hx Pneumococcal Vaccination: 08/04/00 Review of Systems - Review of Systems Notes: REVIEW OF SYSTEMS: CONSTITUTIONAL : Low-grade fever this morning.. General body aches all over. EENT: Denies eye, ear, nose or mouth or throat pain or other symptoms. CARDIOVASCULAR: Denies chest pain. RESPIRATORY: Denies cough, chest congestion, or shortness of breath. GASTROINTESTINAL: Has some nausea, but has not been vomiting. No diarrhea. GENITOURINARY: Denies difficulty or painful urinating, urinary frequency, blood in urine. MUSCULOSKELETAL: See HPI. SKIN: Denies rash or skin lesions. NEUROLOGICAL: Denies LOC or altered mental status. Denies headache. Denies sensory loss or motor deficits. ALL OTHER SYSTEMS REVIEWED AND NEGATIVE. Physical Exam - Vital signs Vitals: Temp Pulse Resp BP Pulse Ox 98.5 F 108 H 20 104/59 L 100 06/12/18 11:43 06/12/18 11:43 06/12/18 11:43 06/12/18 11:43 06/12/18 11:43 Interpretation: Normal Notes: PHYSICAL EXAMINATION: GENERAL: Well-appearing, in no acute distress. Vital signs are all essentially normal. HEAD: Atraumatic, normocephalic. EYES: Pupils equal round and reactive to light, extraocular movements intact. ENT: oropharynx clear without exudates. Moist mucous membranes. NECK: Normal range of motion, supple. LUNGS: Breath sounds clear and equal bilaterally. HEART: Regular rate and rhythm without murmurs. Not tachycardic. ABDOMEN: Soft, nontender. No guarding or rebound. No masses. BACK: Says she has pain throughout her entire back. EXTREMITIES: Normal range of motion without pain. NEUROLOGICAL: Normal speech, normal gait. Normal sensory, motor, and reflex exams. Awake, alert, and oriented x3. Cranial nerves normal. PSYCH: Normal mood, normal affect. SKIN: Warm, dry, no rashes. Course - Re-evaluation Re-evalutation: 06/12/18 14:53 Patient is being given Rocephin for likely UTI/Pyelo. She is been given IV fluids. Have spoken with the hospitalist who is going to see her to determine if she will be admitted or not. - Vital Signs Vital signs: Temp Pulse Resp BP Pulse Ox 98.5 F 76 17 100/67 100 06/12/18 18:16 06/12/18 18:16 06/12/18 18:16 06/12/18 18:16 06/12/18 18:16 - Laboratory Result Diagrams: 06/12/18 12:19 06/12/18 12:19 Laboratory results interpreted by me: 06/12/18 06/12/18 06/12/18 12:19 12:19 12:57 RDW 16.5 H Seg Neuts % (Manual) 87 H Band Neutrophils % 2 L Lymphocytes % (Manual) 9 L Monocytes % (Manual) 2 L Abs Neuts (Manual) 9.2 H Carbon Dioxide 19 L Total Protein 8.4 H Urine Protein 100 H Urine Blood SMALL H Urine Nitrite POSITIVE H Urine Urobilinogen 2.0 H Ur Leukocyte Esterase LARGE H Discharge - Discharge Clinical Impression: Pyelonephritis, IDDM (insulin dependent diabetes mellitus), UTI (urinary tract infection) Condition: Stable Disposition: ADMITTED OBSERVATION Admitting Provider: Hospitalist Unit Admitted: Surgical Floor
[2018-06-12 12:54] LABS: ALANINE AMINOTRANSFERASE 19 U/L (9-52); ALBUMIN 4.6 g/dL (3.5-5.0); ALKALINE PHOSPHATASE 89 U/L (38-126); ANION GAP 18 (5-19); ASPARTATE AMINO TRANSFERASE 22 U/L (14-36); BILIRUBIN,DIRECT 0.3 mg/dL (0.0-0.4); BILIRUBIN,TOTAL 0.4 mg/dL (0.2-1.3); BLOOD UREA NITROGEN 14 mg/dL (7-20); CALCIUM 9.8 mg/dL (8.4-10.2); CARBON DIOXIDE 19 mmol/L (22-30); CHLORIDE 104 mmol/L (98-107); GLUCOSE 80 mg/dL (75-110); POTASSIUM 3.9 mmol/L (3.6-5.0); SODIUM 141.2 mmol/L (137-145); TOTAL PROTEIN 8.4 g/dL (6.3-8.2)
[2018-06-12 13:05] LABS: ABSOLUTE LYMPHOCYTES# (MANUAL) 0.9 10^3/uL (0.5-4.7); ABSOLUTE MONOCYTES # (MANUAL) 0.2 10^3/uL (0.1-1.4); ABSOLUTE NEUTROPHILS# (MANUAL) 9.2 10^3/uL (1.7-8.2); BAND NEUTROPHILS % (MANUAL) 2 % (3-5); BASOPHILS % (MANUAL) 0 % (0-2); EOSINOPHILS % (MANUAL) 0 % (0-6); LYMPHOCYTES % (MANUAL) 9 % (13-45); MONOCYTES % (MANUAL) 2 % (3-13); SEGMENTED NEUTROPHILS % (MAN) 87 % (42-78); TOTAL CELLS COUNTED 100
[2018-06-12 13:08] LABS: ANISOCYTOSIS 1+; OVALOCYTES SLIGHT; PLATELET COMMENT ADEQUATE; TOXIC GRANULATION SLIGHT
[2018-06-12 13:35] LABS: APPEARANCE,URINE CLOUDY; BILIRUBIN,URINE NEGATIVE (NEGATIVE); COLOR,URINE YELLOW; GLUCOSE, URINE NEGATIVE (NEGATIVE); KETONES,URINE NEGATIVE (NEGATIVE); LEUKOCYTE ESTERASE,URINE LARGE (NEGATIVE); NITRITE,URINE POSITIVE (NEGATIVE); PROTEIN,URINE 100 mg/dL (NEGATIVE); URINE SPECIFIC GRAVITY 1.016
[2018-06-12 13:47] LABS: URINE AMPHETAMINES SCREEN NEGATIVE; URINE BARBITURATES SCREEN NEGATIVE; URINE BENZODIAZEPINES SCREEN NEGATIVE; URINE COCAINE SCREEN NEGATIVE; URINE MARIJUANA (THC) SCREEN NEGATIVE; URINE METHADONE SCREEN NEGATIVE; URINE PHENCYCLIDINE SCREEN NEGATIVE
[2018-06-12] MEDS ORDERED: CEFTRIAXONE INJ 1000 MG VIAL IV ONE (13:47)
[2018-06-12] MEDS ORDERED: DEXTROSE 40% GEL 15 GM TUBE PO PRN ×2 (15:42)
[2018-06-12] MEDS ORDERED: GLUCAGON,HUMAN RECOMB 1 MG INJ IM PRN (15:42)
[2018-06-12] MEDS ORDERED: DEXTROSE 50%-WATER 25 GM/50 ML DISP.SYRIN IV PRN ×2 (15:42)
[2018-06-12] MEDS: NORMAL SALINE 1000 ML 1,000 ML IV PRN (16:36)
[2018-06-12 17:36] LABS: A TYPE INFLUENZA AG NEGATIVE (NEGATIVE); B INFLUENZA AG NEGATIVE (NEGATIVE)
[2018-06-12] MEDS: ACETAMINOPHEN 325 MG TABLET PO PRN ×2 (18:15→23:40)
--- NOTE | 2018-06-12 18:28 | PDOC H&P ---
History of Present Illness Patient complains of: low back pain History of Present Illness: CHRISTIANO ST is a 32 year old female with a PMH of IDDM, hypothyroidism and GERD who presented with low back pain and chills. She says she started having low back pain last night and had some chills. She does report having colds and nasal congestion as well in the past 2-3 days. She denies dysuria, frequency or hematuria. In the ER, UA was positive for UTI and she had some neutrophilia. Hospitalist service was called for admission for possible pyelonephritis. Past Medical History Cardiac Medical History: Reports: Peripheral Vascular Disease, Heart Murmur Denies: Atrial Fibrillation, Congestive Heart Failure, Coronary Artery Disease, Myocardial Infarction, Hyperlipidema, Hypertension, Pulmonary Embolism Pulmonary Medical History: Reports: Asthma Denies: Bronchitis, Chronic Obstructive Pulmonary Disease (COPD), Pneumonia, Respiratory Failure, Sleep Apnea, Tuberculosis Neurological Medical History: Reports: Migraine, Seizures Endocrine Medical History: Reports: Diabetes Mellitus Type 1, Diabetes Mellitus Type 2, Hypothyroidism Denies: Hyperthyroidism Renal/ Medical History: Denies: End Stage Renal Disease Malignancy Medical History: Denies: Breast Cancer, Cervical Cancer, Leukemia, Lung Cancer, Ovarian Cancer GI Medical History: Reports: Gastroesophageal Reflux Disease Denies: Crohn's Disease, Hiatal Hernia Musculoskeltal Medical History: Denies: Arthritis Psychiatric Medical History: Denies: Bipolar Disorder, Dementia, Depression, Post Traumatic Stress Disorder Hematology: Denies: Anemia, Hemophilia, Sickle Cell Disease Infectious Medical History: Denies: HIV Past Surgical History Past Surgical History: Reports: Section - x 2, Tubal Ligation Denies: Appendectomy, Cholecystectomy, Colostomy, Coronary Artery Bypass Graft, Gastric Bypass Surgery, Herniorrhaphy, Hysterectomy, Mastectomy, Pacemaker, Tonsillectomy Social History Smoking Status: Current Every Day Smoker Frequency of Alcohol Use: None Hx Recreational Drug Use: No Drugs: None Hx Prescription Drug Abuse: No Family History Family History: CAD, COPD, DM, Hyperlipidemia, Hypertension, Malignancy, Thyroid Disfunction, Other - Liver disease Parental Family History Reviewed: Yes - no premature CAD Children Family History Reviewed: No Sibling(s) Family History Reviewed.: No Medication/Allergy Home Medications: Esomeprazole Mag Trihydrate [Nexium] 40 mg PO DAILY 06/12/18 Gabapentin [Neurontin 400 mg Capsule] 800 mg PO Q8 06/12/18 Insulin Degludec [Tresiba Flextouch U-200] 50 unit SQ DAILY 06/12/18 Levothyroxine Sodium [Synthroid 0.1 mg Tablet] 0.1 mg PO DAILY 06/12/18 Ropinirole HCl [Requip 0.25 mg Tablet] 0.25 mg PO QHS 06/12/18 Ciprofloxacin HCl [Cipro 500 mg Tablet] 500 mg PO BID #10 tablet 06/13/18 Allergies/Adverse Reactions: clarithromycin [From Biaxin] Allergy (Mild, Verified 06/12/18 11:33) Hives codeine [Codeine] Allergy (Mild, Verified 06/12/18 11:33) Hives meperidine HCl [From Demerol] Allergy (Mild, Verified 06/12/18 11:33) Hives Influenza Virus Vaccines [Influenza Virus Vaccine] Allergy (Verified 06/12/18 11 :33) Review of Systems All systems: reviewed and no additional remarkable complaints except as stated - as mentioned in HPI Physical Exam Vital Signs: Temp Pulse Resp BP Pulse Ox 98.5 F 108 H 20 104/59 L 100 06/12/18 11:43 06/12/18 11:43 06/12/18 11:43 06/12/18 11:43 06/12/18 11:43 Intake & Output 06/11/18 06/12/18 06/13/18 06:59 06:59 06:59 Intake Total 1999 Balance 1999 Weight 147 lb 7.828 oz General appearance: PRESENT: no acute distress, well-developed, well-nourished Head exam: PRESENT: atraumatic, normocephalic Eye exam: PRESENT: conjunctiva pink, EOMI, PERRLA. ABSENT: scleral icterus Ear exam: PRESENT: normal external ear exam Mouth exam: PRESENT: moist, tongue midline Neck exam: ABSENT: carotid bruit, JVD, lymphadenopathy, thyromegaly Respiratory exam: PRESENT: clear to auscultation boubacar. ABSENT: rales, rhonchi, wheezes Cardiovascular exam: PRESENT: RRR. ABSENT: diastolic murmur, rubs, systolic murmur Pulses: PRESENT: normal dorsalis pedis pul GI/Abdominal exam: PRESENT: normal bowel sounds, soft, tenderness - minimal direct tenderness on the RLQ, negative rebound, negative Rovsing's sign direct tenderness on palpation of the paralumbar areas. ABSENT: distended, guarding, mass, organolmegaly, rebound Rectal exam: PRESENT: deferred Neurological exam: PRESENT: alert, awake, oriented to person, oriented to place , oriented to time, oriented to situation, CN II-XII grossly intact. ABSENT: motor sensory deficit Results Laboratory Results: 06/12/18 12:19 06/12/18 12:19 06/12/18 06/12/18 06/12/18 12:19 12:19 12:19 WBC 10.3 RBC 4.51 Hgb 12.4 Hct 36.6 MCV 81 MCH 27.4 MCHC 33.8 RDW 16.5 H Plt Count 173 Seg Neutrophils % Not Reportable Lymphocytes % Not Reportable Monocytes % Not Reportable Eosinophils % Not Reportable Basophils % Not Reportable Absolute Neutrophils Not Reportable Absolute Lymphocytes Not Reportable Absolute Monocytes Not Reportable Absolute Eosinophils Not Reportable Absolute Basophils Not Reportable VBG pH 7.34 VBG pCO2 44.0 VBG HCO3 23.3 VBG Base Excess -2.6 Sodium 141.2 Potassium 3.9 Chloride 104 Carbon Dioxide 19 L Anion Gap 18 BUN 14 Creatinine 0.91 Est GFR ( Amer) > 60 Est GFR (Non-Af Amer) > 60 Glucose 80 Calcium 9.8 Total Bilirubin 0.4 AST 22 ALT 19 Alkaline Phosphatase 89 Total Protein 8.4 H Albumin 4.6 Urine Color Urine Appearance Urine pH Ur Specific [place] Urine Protein Urine Glucose (UA) Urine Ketones Urine Blood Urine Nitrite Ur Leukocyte Esterase Urine WBC (Auto) Urine RBC (Auto) 06/12/18 12:57 WBC RBC Hgb Hct MCV MCH MCHC RDW Plt Count Seg Neutrophils % Lymphocytes % Monocytes % Eosinophils % Basophils % Absolute Neutrophils Absolute Lymphocytes Absolute Monocytes Absolute Eosinophils Absolute Basophils VBG pH VBG pCO2 VBG HCO3 VBG Base Excess Sodium Potassium Chloride Carbon Dioxide Anion Gap BUN Creatinine Est GFR ( Amer) Est GFR (Non-Af Amer) Glucose Calcium Total Bilirubin AST ALT Alkaline Phosphatase Total Protein Albumin Urine Color YELLOW Urine Appearance CLOUDY Urine pH 5.0 Ur Specific [place] 1.016 Urine Protein 100 H Urine Glucose (UA) NEGATIVE Urine Ketones NEGATIVE Urine Blood SMALL H Urine Nitrite POSITIVE H Ur Leukocyte Esterase LARGE H Urine WBC (Auto) 153 Urine RBC (Auto) 7 Assessment & Plan - Diagnosis (1) Pyelonephritis Is this a current diagnosis for this admission?: Yes Plan: Patient did complain of lower back/flank pain and chills. She does have pyuria on UA. Continue Rocephin. She has minimal direct RLQ tenderness with no Rovsing' s sign or rebound tenderness suggestive of appendicitis. Will do a CT of the abdomen and pelvis to rule out stones. (2) IDDM (insulin dependent diabetes mellitus) Is this a current diagnosis for this admission?: Yes Plan: Will continue to monitor sugars and will place on sliding scale. Will resume home regimen based on succeeding sugar levels. - Time Time Spent: 30 to 50 Minutes
[2018-06-12] MEDS ORDERED: KETOROLAC TROMETHAMINE INJ/PF 30 MG/1 ML SDV IV ONE (19:00)
--- NOTE | 2018-06-12 19:56 | RADIOLOGY REPORT (SQ) ---
EXAM DESCRIPTION: CT ABD/PELVIS NO ORAL OR IV COMPLETED DATE/TIME: 06/12/2018 7:43 pm REASON FOR STUDY: RLQ tendernes,possible pyelo,persistent flank pain COMPARISON: None. TECHNIQUE: CT scan of the abdomen and pelvis performed without intravenous or oral contrast. Images reviewed with lung, soft tissue, and bone windows. Reconstructed coronal and sagittal MPR images revi ewed. All images stored on PACS. All CT scanners at this facility use dose modulation, iterative reconstruction, and/or weight based d osing when appropriate to reduce radiation dose to as low as reasonably achievable (ALARA). [facility]: Dose Right [facility]: CareDose [facility]: Dose Right [facility]: Teradose 4D [facility]: [employer] RADIATION DOSE: CT Rad equipment meets quality standard of care and radiation dose reduction techniq ues were employed. CTDIvol: 6.4 mGy. DLP: 345 mGy-cm.mGy. LIMITATIONS: None. FINDINGS: LOWER CHEST: No significant findings. No nodules or infiltrates. NON-CONTRASTED LIVER, SPLEEN, ADRENALS: Evaluation limited by lack of IV contrast. No identified sign ificant masses. PANCREAS: No masses. No peripancreatic inflammatory changes. GALLBLADDER: No identified stones by CT criteria. No inflammatory changes to suggest cholecystitis. RIGHT KIDNEY AND URETER: No solid masses. No significant calcification. No hydronephrosis or hydroure ter. LEFT KIDNEY AND URETER: No solid masses. No significant calcification. No hydronephrosis or hydrouret er. AORTA AND RETROPERITONEUM: No aneurysm. No retroperitoneal masses or adenopathy. BOWEL AND PERITONEAL CAVITY: Moderate stool throughout the colon. No mechanical bowel obstruction id entified. APPENDIX: Normal. PELVIS, BLADDER, AND ABDOMINAL WALL:Probable 4 cm right ovarian region cyst. Reportedly, pain is lef t-sided. This is probably of no clinical significance in a reproductive age female. Mild nondepende nt gas in the bladder. Presumably related to recent catheterization. Trace free fluid in the pelvis . No abdominal wall mass or hernia. BONES: No significant findings. OTHER: No other significant finding. IMPRESSION: 1. No evidence of urinary obstruction. No stones or acute abnormality. 2. Probable 4 cm right ovarian cyst. Followup of asymptomatic adnexal cysts found on CT or MRI in reproductive age patients *Benign cyst ?5 cm: No followup needed Note: If cyst is clinically symptomatic or otherwise concerning, other followup may be necessary. [facility] ed on Managing Incidental Findings on Abdominal and Pelvic CT and MRI, Part 1: White Paper of the ACR Incidental Findings Committee II on Adnexal Findings J Am Raheem Radiol 2013;10:675-681. TECHNICAL DOCUMENTATION: JOB ID: [id number] Quality ID # [id number]: Final reports with documentation of one or more dose reduction techniques (e.g., Au tomated exposure control, adjustment of the mA and/or kV according to patient size, use of iterative reconstruction technique) 2010 [employer]- All Rights Reserved Reading location - IP/workstation name: [email or web address]
[2018-06-12] MEDS: HEPARIN SOD (PORCINE) 5,000 UNIT/ML 1 ML SYRINGE SUBCUT SCH (21:42)
[2018-06-12] MEDS: INSULIN LISPRO 100 UNIT/ML 3 ML VIAL SUBCUT PRN (22:56)
[2018-06-12] MEDS ORDERED: GABAPENTIN 400 MG CAPSULE PO ONE (23:30)
[2018-06-13] MEDS: GABAPENTIN 400 MG CAPSULE PO SCH ×3 (05:36→21:14)
[2018-06-13] MEDS: NORMAL SALINE 1000 ML 1,000 ML IV PRN ×2 (05:37→15:40)
[2018-06-13] MEDS: INSULIN LISPRO 100 UNIT/ML 3 ML VIAL SUBCUT PRN ×3 (08:41→17:25)
[2018-06-13] MEDS: HEPARIN SOD (PORCINE) 5,000 UNIT/ML 1 ML SYRINGE SUBCUT SCH ×2 (11:26→21:15)
[2018-06-13] MEDS: LEVOTHYROXINE SODIUM 0.1 MG TABLET PO SCH (11:26)
[2018-06-13] MEDS ORDERED: CEFTRIAXONE 1 GM/D5W RTU 1 GM/50 ML RTUPB IV SCH (12:00)
[2018-06-13] MEDS ORDERED: CEFTRIAXONE SODIUM 1,000 MG in DEXTROSE 5%-WATER 50 ML IV SCH (12:00)
--- NOTE | 2018-06-13 15:31 | PDOC PROGRESS REPORT ---
Subjective Progress Note for:: 06/13/18 Subjective:: CHRISTIANO ST is a 32 year old female with a PMH of IDDM, hypothyroidism and GERD who presented with low back pain and chills. She says she started having low back pain last night and had some chills. She does report having colds and nasal congestion as well in the past 2-3 days. She denies dysuria, frequency or hematuria. In the ER, UA was positive for UTI and she had some neutrophilia. Hospitalist service was called for admission for pyelonephritis. Patient just developed a fever of 101.2 F. She says she still has back pain but this has improved. Her abdominal pain has also improved. Reason For Visit: PYELONEPHRITIS Physical Exam Vital Signs: Temp Pulse Resp BP Pulse Ox 98.0 F 79 16 102/58 L 100 06/13/18 11:00 06/13/18 11:00 06/13/18 11:00 06/13/18 11:00 06/13/18 11:00 Intake & Output 06/12/18 06/13/18 06/14/18 06:59 06:59 06:59 Intake Total 1417 1050 Balance 1417 1050 Weight 159 lb 9.835 oz General appearance: PRESENT: no acute distress, well-developed, well-nourished Head exam: PRESENT: atraumatic, normocephalic Eye exam: PRESENT: conjunctiva pink, EOMI, PERRLA. ABSENT: scleral icterus Ear exam: PRESENT: normal external ear exam Mouth exam: PRESENT: moist, tongue midline Neck exam: ABSENT: carotid bruit, JVD, lymphadenopathy, thyromegaly Respiratory exam: PRESENT: clear to auscultation boubacar. ABSENT: rales, rhonchi, wheezes Cardiovascular exam: PRESENT: RRR. ABSENT: diastolic murmur, rubs, systolic murmur Pulses: PRESENT: normal dorsalis pedis pul GI/Abdominal exam: PRESENT: normal bowel sounds, soft. ABSENT: distended, guarding, mass, organolmegaly, rebound, tenderness Rectal exam: PRESENT: deferred Neurological exam: PRESENT: alert, awake, oriented to person, oriented to place , oriented to time, oriented to situation, CN II-XII grossly intact. ABSENT: motor sensory deficit Results Impressions: Abdomen/Pelvis CT 06/12/18 18:14 IMPRESSION: 1. No evidence of urinary obstruction. No stones or acute abnormality. 2. Probable 4 cm right ovarian cyst. Followup of asymptomatic adnexal cysts found on CT or MRI in reproductive age patients *Benign cyst ?5 cm: No followup needed Note: If cyst is clinically symptomatic or otherwise concerning, other followup may be necessary. Based on Managing Incidental Findings on Abdominal and Pelvic CT and MRI, Part 1: White Paper of the ACR Incidental Findings Committee II on Adnexal Findings J Am Raheem Radiol 2013;10:675-681. Assessment & Plan - Diagnosis (1) Pyelonephritis Is this a current diagnosis for this admission?: Yes Plan: Patient did complain of lower back/flank pain and chills. She does have pyuria on UA. Continue Rocephin. CT of the abdomen and pelvis is unremarkable aside from a right ovarian cyst. Blood and urine cultures pending. (2) IDDM (insulin dependent diabetes mellitus) Is this a current diagnosis for this admission?: Yes Plan: Resume insulin degludec. Continue sliding scale coverage. (3) Right ovarian cyst Is this a current diagnosis for this admission?: Yes Plan: This will be followed up by PCP and possible referral to outpatient [facility] if she develops persistent pain from her ovarian cyst. - Time Time Spent with patient: 15-24 minutes
[2018-06-13] MEDS: ACETAMINOPHEN 325 MG TABLET PO PRN (15:36)
[2018-06-13] MEDS ORDERED: INSULIN DEGLUDEC 50 UNIT SQ SCH (15:45)
[2018-06-13 17:14] LABS: ANION GAP 11 (5-19); BLOOD UREA NITROGEN 12 mg/dL (7-20); CALCIUM 8.1 mg/dL (8.4-10.2); CARBON DIOXIDE 21 mmol/L (22-30); CHLORIDE 107 mmol/L (98-107); GLUCOSE 243 mg/dL (75-110); POTASSIUM 3.8 mmol/L (3.6-5.0)
[2018-06-13] MEDS: KETOROLAC TROMETHAMINE INJ/PF 30 MG/1 ML SDV IV PRN (17:24)
[2018-06-13] MEDS ORDERED: PIPERACILLIN/TAZOBACTAM 3.375 GM VIAL IV PRN (18:23)
[2018-06-14] MEDS ORDERED: PIPERACILLIN/TAZOBACTAM 3.375 GM VIAL IV ONE (00:41)
[2018-06-14] MEDS: PIPERACILLIN SODIUM/TAZOBACTAM 3.375 GM in NORMAL SALINE 100 ML IV SCH ×3 (01:03→12:06)
[2018-06-14] MEDS: KETOROLAC TROMETHAMINE INJ/PF 30 MG/1 ML SDV IV PRN ×2 (01:47→12:07)
[2018-06-14] MEDS: GABAPENTIN 400 MG CAPSULE PO SCH ×2 (05:43→14:30)
[2018-06-14] MEDS: INSULIN LISPRO 100 UNIT/ML 3 ML VIAL SUBCUT PRN ×2 (09:02→12:06)
[2018-06-14] MEDS: LEVOTHYROXINE SODIUM 0.1 MG TABLET PO SCH (09:04)
--- NOTE | 2018-06-14 09:54 | RADIOLOGY REPORT (SQ) ---
EXAM DESCRIPTION: CHEST SINGLE VIEW COMPLETED DATE/TIME: 06/14/2018 9:44 am REASON FOR STUDY: wheezing COMPARISON: 2010. NUMBER OF VIEWS: One view. TECHNIQUE: Single frontal radiographic view of the chest acquired. LIMITATIONS: None. FINDINGS: LUNGS AND PLEURA: No opacities, masses or pneumothorax. No pleural effusion. MEDIASTINUM AND HILAR STRUCTURES: No masses. Contour normal. HEART AND VASCULAR STRUCTURES: Heart normal in size. Normal vasculature. BONES: No acute findings. HARDWARE: None in the chest. OTHER: No other significant finding. IMPRESSION: NO SIGNIFICANT RADIOGRAPHIC FINDING IN THE CHEST. TECHNICAL DOCUMENTATION: JOB ID: [id number] [email or web address]- All Rights Reserved Reading location - IP/workstation name: [email or web address]
--- NOTE | 2018-06-14 11:05 | PDOC DISCHARGE SUMMARY ---
General - Admit/Disc Date/PCP Admission Date/Primary Care Provider: 06/12/18 16:02 Discharge Date: 06/14/18 - Discharge Diagnosis (1) Pyelonephritis Is this a current diagnosis for this admission?: Yes (2) IDDM (insulin dependent diabetes mellitus) Is this a current diagnosis for this admission?: Yes (3) Right ovarian cyst Is this a current diagnosis for this admission?: Yes - Additional Information Prescriptions: Albuterol Sulfate [Ventolin Hfa 8 gm Mdi (1 Mdi/ER Disp)] 2 puff IH ASDIR PRN # 1 inhaler PRN Reason: For Wheezing Ciprofloxacin HCl [Cipro 500 mg Tablet] 500 mg PO BID #10 tablet Home Medications: Esomeprazole Mag Trihydrate [Nexium] 40 mg PO DAILY 06/12/18 Gabapentin [Neurontin 400 mg Capsule] 800 mg PO Q8 06/12/18 Insulin Degludec [Tresiba Flextouch U-200] 50 unit SQ DAILY 06/12/18 Levothyroxine Sodium [Synthroid 0.1 mg Tablet] 0.1 mg PO DAILY 06/12/18 Ropinirole HCl [Requip 0.25 mg Tablet] 0.25 mg PO QHS 06/12/18 Ciprofloxacin HCl [Cipro 500 mg Tablet] 500 mg PO BID #10 tablet 06/13/18 Albuterol Sulfate [Ventolin Hfa 8 gm Mdi (1 Mdi/ER Disp)] 2 puff IH ASDIR PRN # 1 inhaler 06/14/18 History of Present Illness History of Present Illness: CHRISTIANO ST is a 32 year old female with a PMH of IDDM, hypothyroidism, remote history of well controlled asthma, and GERD who presented with low back pain and chills. She says she started having low back pain last night and had some chills. She does report having colds and nasal congestion as well in the past 2-3 days. She denies dysuria, frequency or hematuria. In the ER, UA was positive for UTI and she had some neutrophilia. Hospitalist service was called for admission for possible pyelonephritis. Hospital Course Hospital Course: Patient was admitted for pyelonephritis. She was initially started on Rocephin but developed fever the next day hence was switched to Zosyn. She did clinically improve significantly. No recurrence of fever overnight. She says she is feeling much better today. CT abdomen/pelvis was unremarkable except for a right ovarian cyst. She was told to ff-up with PCP and outpatient [facility] if she developes persistent RLQ pain from the cyst. Urine culture grew Klebsiella. She will be sent home on 5 days of ciprofloxacin. Physical Exam Vital Signs: Temp Pulse Resp BP Pulse Ox 97.9 F 67 18 110/74 100 06/14/18 10:10 06/14/18 10:10 06/14/18 10:10 06/14/18 10:10 06/14/18 10:10 Intake & Output 06/13/18 06/14/18 06/15/18 06:59 06:59 06:59 Intake Total 1417 2150 Balance 1417 2150 Weight 159 lb 9.835 oz General appearance: PRESENT: no acute distress, well-developed, well-nourished Head exam: PRESENT: atraumatic, normocephalic Eye exam: PRESENT: conjunctiva pink, EOMI, PERRLA. ABSENT: scleral icterus Ear exam: PRESENT: normal external ear exam Mouth exam: PRESENT: moist, tongue midline Neck exam: ABSENT: carotid bruit, JVD, lymphadenopathy, thyromegaly Respiratory exam: PRESENT: clear to auscultation boubacar. ABSENT: rales, rhonchi, wheezes Cardiovascular exam: PRESENT: RRR. ABSENT: diastolic murmur, rubs, systolic murmur Pulses: PRESENT: normal dorsalis pedis pul GI/Abdominal exam: PRESENT: normal bowel sounds, soft. ABSENT: distended, guarding, mass, organolmegaly, rebound, tenderness Rectal exam: PRESENT: deferred Extremities exam: PRESENT: full ROM. ABSENT: calf tenderness, clubbing, pedal edema Neurological exam: PRESENT: alert, awake, oriented to person, oriented to place , oriented to time, oriented to situation, CN II-XII grossly intact. ABSENT: motor sensory deficit Results Laboratory Results: 06/13/18 16:38 06/13/18 06/13/18 16:38 16:38 Sodium 139.0 Potassium 3.8 Chloride 107 Carbon Dioxide 21 L Anion Gap 11 BUN 12 Creatinine 0.76 Est GFR ( Amer) > 60 Est GFR (Non-Af Amer) > 60 Glucose 243 H Lactic Acid 0.8 Calcium 8.1 L Impressions: Abdomen/Pelvis CT 06/12/18 18:14 IMPRESSION: 1. No evidence of urinary obstruction. No stones or acute abnormality. 2. Probable 4 cm right ovarian cyst. Followup of asymptomatic adnexal cysts found on CT or MRI in reproductive age patients *Benign cyst ?5 cm: No followup needed Note: If cyst is clinically symptomatic or otherwise concerning, other followup may be necessary. Based on Managing Incidental Findings on Abdominal and Pelvic CT and MRI, Part 1: White Paper of the ACR Incidental Findings Committee II on Adnexal Findings J Am Raheem Radiol 2013;10:675-681. Chest X-Ray 06/14/18 00:00 IMPRESSION: NO SIGNIFICANT RADIOGRAPHIC FINDING IN THE CHEST. Qualifiers - * PATIENT BEING DISCHARGED WITH ANY OF THE FOLLOWING DIAGNOSIS: No
[2018-06-14] MEDS: HEPARIN SOD (PORCINE) 5,000 UNIT/ML 1 ML SYRINGE SUBCUT SCH (12:13)
[2018-06-14 16:33] VITALS: BP 104/64
== END 2018-06-14 16:49 | disposition home or self-care (01) ==
LOC: ER 11:24 → EH 16:02 → 5 18:01
PROVIDERS: ADMIT Internal Medicine; ATTEND Internal Medicine
DX: N12 Tubulo-interstitial nephritis, not specified as acute or chronic (principal); B96.1 Klebsiella pneumoniae [K. pneumoniae] as the cause of diseases classified elsewhere; N83.201 Unspecified ovarian cyst, right side; E10.42 Type 1 diabetes mellitus with diabetic polyneuropathy; E10.51 Type 1 diabetes mellitus with diabetic peripheral angiopathy without gangrene; K21.9 Gastro-esophageal reflux disease without esophagitis; G25.81 Restless legs syndrome; E03.9 Hypothyroidism, unspecified; F17.200 Nicotine dependence, unspecified, uncomplicated; K76.0 Fatty (change of) liver, not elsewhere classified; Z79.4 Long term (current) use of insulin; Z79.899 Other long term (current) drug therapy; Z98.51 Tubal ligation status; Z87.11 Personal history of peptic ulcer disease
CPT/HCPCS: 99285; 96361; 96375; 96365; 36415 ×2; 87040; 87086; 82962 ×3; 83605 ×2; 85025; 81025; 87088; 80048; 80053; 81001; 87186; 80307; 82803; 87804; 71045; 74176; G0378 ×4; J3490 ×7; J1815 ×3; J1885 ×3; J0696 ×2; J2405; J7030 ×2; J2543

== ENCOUNTER 2019-04-17 04:39 | Inpatient (IN) | payer MEDICAID ==
[2019-04-17] MEDS ORDERED: IPRATROPIUM/ALBUTEROL 0.5-2.5 MG/3 ML AMPUL NEB ONE ×2 (06:42→08:43)
[2019-04-17] MEDS ORDERED: PREDNISONE 20 MG TABLET PO ONE (06:42)
[2019-04-17] MEDS ORDERED: BENZONATATE 100 MG CAPSULE PO ONE (06:42)
[2019-04-17] MEDS ORDERED: ALBUTEROL SULFATE 0.083% NEB 2.5 MG/3 ML AMPUL NEB ONE (07:12)
--- NOTE | 2019-04-17 07:12 | ER Document Report ---
Entered by MORRIS SHELBY SCRIBE 04/17/19 0648 Acting as scribe for:AMARILIS TOMPKINS MD ED Respiratory Problem - General Chief Complaint: Cough Stated Complaint: COUGH Time Seen by Provider: 04/17/19 06:34 Primary Care Provider: ASHLEE DUMONT MD [Primary Care Provider] - Follow up as needed Information source: Patient Notes: Patient is a 33-year-old female that presents to the emergency department today with complaints of a cough for the last 2-1/2 to 3 weeks. Significant other at bedside states the patient has had a fever of "one time". Patient states she has green sputum with her cough. Patient was put on doxycycline and Tessalon Perles in December for similar symptoms. TRAVEL OUTSIDE OF THE [place] IN LAST 30 DAYS: No - Related Data Allergies/Adverse Reactions: clarithromycin [From Biaxin] Allergy (Mild, Verified 06/12/18 11:33) Hives codeine [Codeine] Allergy (Mild, Verified 06/12/18 11:33) Hives meperidine HCl [From Demerol] Allergy (Mild, Verified 06/12/18 11:33) Hives Influenza Virus Vaccines [Influenza Virus Vaccine] Allergy (Verified 06/12/18 11:33) Past Medical History - General Information source: Patient - Social History Smoking Status: Current Every Day Smoker Cigarette use (# per day): Yes Chew tobacco use (# tins/day): No Frequency of alcohol use: None Drug Abuse: None Lives with: Family Family History: Reviewed & Not Pertinent, CAD, COPD, DM, Hyperlipidemia, Hypertension, Malignancy, Thyroid Disfunction, Other - Liver disease Patient has suicidal ideation: No Patient has homicidal ideation: No - Past Medical History Cardiac Medical History: Reports: Hx Peripheral Vascular Disease, Hx Heart Murmur Pulmonary Medical History: Reports: Hx Asthma Neurological Medical History: Reports: Hx Migraine, Hx Seizures Endocrine Medical History: Reports: Hx Diabetes Mellitus Type 2, Hx Hypothyroidism GI Medical History: Reports: Hx Gastroesophageal Reflux Disease, Hx Ulcer Skin Medical History: Reports Hx Cellulitis Past Surgical History: Reports: Hx Section - x 2, Hx Gynecologic Surgery - D&C, Hx Oral Surgery, Hx Tubal Ligation - Immunizations Immunizations up to date: Yes Hx Diphtheria, Pertussis, Tetanus Vaccination: Yes Hx Pneumococcal Vaccination: 08/04/00 Review of Systems - Review of Systems Constitutional: See HPI, Fever - "one time" EENT: No symptoms reported Cardiovascular: No symptoms reported Respiratory: See HPI, Cough, Sputum - green Gastrointestinal: No symptoms reported Genitourinary: No symptoms reported Female Genitourinary: No symptoms reported Musculoskeletal: No symptoms reported Skin: No symptoms reported Hematologic/Lymphatic: No symptoms reported Neurological/Psychological: No symptoms reported -: Yes All other systems reviewed and negative Physical Exam - Vital signs Vitals: Temp Pulse Resp BP Pulse Ox 98.1 F 96 23 H 139/82 H 95 04/17/19 04:41 04/17/19 04:41 04/17/19 04:41 04/17/19 04:41 04/17/19 04:41 - Notes Notes: Physical Exam: General: Alert, smells heavily of cigarette smoke. HEENT: Normocephalic. Atraumatic. PERRL. Extraocular movements intact. Oropharynx clear. TMs are barely visualized due to hard cerumen bilaterally. Neck: Supple. Non-tender. Respiratory: No respiratory distress. Wheezing and rhonchi with forced cough bilaterally. Cardiovascular: Regular rate and rhythm. Abdominal: Normal Inspection. Non-tender. No distension. Normal Bowel Sounds. Back: No gross abnormalities. Extremities: Moves all four extremities. Upper extremities: Normal inspection. Normal ROM. Lower extremities: Normal inspection. No edema. Normal ROM. Neurological: Normal cognition. AAOx4. Normal speech. Psychological: Normal affect. Normal Mood. Skin: Warm. Dry. Normal color. Course - Re-evaluation Re-evalutation: 04/17/19 11:22 Patient continues to have diffuse inspiratory expiratory wheezes and rhonchi. She does look like she is getting tired. - Vital Signs Vital signs: Temp Pulse Resp BP Pulse Ox 98.1 F 96 16 106/58 L 92 04/17/19 04:41 04/17/19 04:41 04/17/19 10:23 04/17/19 10:23 04/17/19 10:23 - Laboratory Result Diagrams: 04/17/19 08:07 04/17/19 08:07 Laboratory results interpreted by me: 04/17/19 04/17/19 08:07 08:07 Hgb 10.2 L Hct 32.3 L MCV 77 L MCH 24.3 L MCHC 31.6 L RDW 15.5 H Haines % (Auto) 13.4 H Sodium 132.0 L Chloride 97 L Glucose 558 H* Alkaline Phosphatase 138 H - Diagnostic Test Radiology reviewed: Image reviewed - COPD, no infiltrate seen. - Consults Dr. Nguyễn Time consulted: 11:23 Consulted provider: will come to ER Critical Care Note - Critical Care Note Total time excluding time spent on procedures (mins): 35 Discharge - Discharge Clinical Impression: Acute exacerbation of chronic obstructive pulmonary disease (COPD), Poorly controlled diabetes mellitus Hyperglycemia due to type 2 diabetes mellitus Qualifiers: Diabetes mellitus exterminator helper insulin use: with senior care use Qualified Code(s): E11.65 - Type 2 diabetes mellitus with hyperglycemia; Z79.4 - tank terminal gauger (current) use of insulin Condition: Stable Disposition: ADMITTED INPATIENT Admitting Provider: Gopi (Hospitalist) Unit Admitted: Telemetry Referrals: ASHLEE DUMONT MD [Primary Care Provider] - Follow up as needed Scribe Attestation: 04/17/19 07:43 I personally performed the services described in the documentation, reviewed and edited the documentation which was dictated to the scribe in my presence, and it accurately records my words and actions. I personally performed the services described in the documentation, reviewed and edited the documentation which was dictated to the scribe in my presence, and it accurately records my words and actions.
[2019-04-17] MEDS ORDERED: NORMAL SALINE 1000 ML 1,000 ML IV ONE ×3 (07:37→18:57)
[2019-04-17] MEDS ORDERED: LIDOCAINE 1% INJ-PF (10 MG/ML) 30 ML SDV NEB ONE (07:38)
[2019-04-17] MEDS ORDERED: KETOROLAC TROMETHAMINE INJ/PF 30 MG/1 ML SDV IV ONE (07:38)
[2019-04-17] MEDS: MAGNESIUM SULFATE/D5W 1 GM/100 ML RTUPB IV SCH ×2 (08:09→08:53)
[2019-04-17 09:43] LABS: ABSOLUTE EOSINOPHILS # (AUTO) 0.1 10^3/uL (0.0-0.6); ABSOLUTE LYMPHOCYTES (AUTO) 1.5 10^3/uL (0.5-4.7); ABSOLUTE MONOCYTES (AUTO) 0.7 10^3/uL (0.1-1.4); ABSOLUTE NEUT (AUTO) 2.6 10^3/uL (1.7-8.2); BASOPHILS % (AUTO) 0.9 % (0-2); EOSINOPHILS % (AUTO) 1.9 % (0-6); HEMATOCRIT 32.3 % (36.0-47.0); HEMOGLOBIN 10.2 g/dL (12.0-15.5); LYMPHOCYTES % (AUTO) 30.2 % (13-45); MEAN CORPUSCULAR HEMOGLOBIN 24.3 pg (27.0-33.4); MEAN CORPUSCULAR HGB CONC 31.6 g/dL (32.0-36.0); MEAN CORPUSCULAR VOLUME 77 fl (80-97); MONOCYTES % (AUTO) 13.4 % (3-13); PLATELET COUNT 227 10^3/uL (150-450); RED CELL DISTRIBUTION WIDTH 15.5 % (11.5-14.0); SEGMENTED NEUTROPHILS % (AUTO) 53.6 % (42-78); TOTAL CELLS COUNTED % (AUTO) 100 %; WHITE BLOOD COUNT 4.9 10^3/uL (4.0-10.5)
[2019-04-17 09:53] LABS: ALBUMIN 3.7 g/dL (3.5-5.0); ALKALINE PHOSPHATASE 138 U/L (38-126); ANION GAP 11 (5-19); ASPARTATE AMINO TRANSFERASE 22 U/L (14-36); BILIRUBIN,DIRECT 0.2 mg/dL (0.0-0.4); BILIRUBIN,TOTAL 0.2 mg/dL (0.2-1.3); BLOOD UREA NITROGEN 14 mg/dL (7-20); CALCIUM 9.1 mg/dL (8.4-10.2); CARBON DIOXIDE 24 mmol/L (22-30); CHLORIDE 97 mmol/L (98-107); POTASSIUM 4.3 mmol/L (3.6-5.0); TOTAL PROTEIN 6.5 g/dL (6.3-8.2)
[2019-04-17 10:03] LABS: GLUCOSE 558 mg/dL (75-110)
[2019-04-17] MEDS ORDERED: INSULIN REG, HUMAN 100 UNIT/ML 3 ML VIAL (PYX) IV ONE ×2 (10:11→18:57)
[2019-04-17] MEDS ORDERED: HYDROCODONE/ACETAMINOPHEN 5-325 MG TABLET PO ONE (10:20)
--- NOTE | 2019-04-17 11:22 | RADIOLOGY REPORT (SQ) ---
EXAM DESCRIPTION: CHEST 2 VIEWS COMPLETED DATE/TIME: 04/17/2019 11:06 am REASON FOR STUDY: Acute exacerbation COPD COMPARISON: 2018 TECHNIQUE: Frontal and lateral radiographic views of the chest acquired. NUMBER OF VIEWS: Two view. LIMITATIONS: None. FINDINGS: LUNGS AND PLEURA: No opacities, masses or pneumothorax. No pleural effusion. MEDIASTINUM AND HILAR STRUCTURES: No masses or contour abnormalities. HEART AND VASCULAR STRUCTURES: Heart normal size. No evidence for failure. BONES: No acute findings. HARDWARE: None in the chest. OTHER: No other significant finding. IMPRESSION: NO SIGNIFICANT RADIOGRAPHIC FINDING IN THE CHEST. TECHNICAL DOCUMENTATION: JOB ID: [id number] [employer]- All Rights Reserved Reading location - IP/workstation name: [email or web address]
[2019-04-17] MEDS ORDERED: GUAIFENESIN SYRP 200 MG/10 ML UDC PO PRN (12:22)
[2019-04-17] MEDS ORDERED: ACETAMINOPHEN 325 MG TABLET PO PRN (12:22)
[2019-04-17] MEDS ORDERED: DEXTROSE 40% GEL 15 GM TUBE PO PRN ×4 (12:27→12:28)
[2019-04-17] MEDS ORDERED: DEXTROSE 50%-WATER 25 GM/50 ML DISP.SYRIN IV PRN ×4 (12:27→12:28)
[2019-04-17] MEDS ORDERED: GLUCAGON,HUMAN RECOMB 1 MG INJ IM PRN ×2 (12:27→12:28)
--- NOTE | 2019-04-17 12:44 | PDOC H&P ---
History of Present Illness Admission Date/PCP: 04/17/19 11:32 ASHLEE DUMONT MD History of Present Illness: CHRISTIANO ST is a 33 year old female past medical history of IDDM, PVD, asthm a/COPD on home oxygen as needed, tobacco abuse, hypothyroidism, GERD, presenting to ED complaining of progressively worsening cough for the last 2 to 3 weeks, treated with productive sputum, back pain, subjective fever and chills. Denies any sick contact, recent travel, nausea, vomiting, diarrhea, constipation or any urinary symptoms. In ED she was found to be in respiratory distress with elevated blood glucose levels. Patient was started on IV steroids, IV insulin, nebs and hospital was consulted for admission. Past Medical History Cardiac Medical History: Reports: Peripheral Vascular Disease, Heart Murmur Denies: Atrial Fibrillation, Congestive Heart Failure, Coronary Artery Disease, Myocardial Infarction, Hyperlipidema, Hypertension, Pulmonary Embolism Pulmonary Medical History: Reports: Asthma Denies: Bronchitis, Chronic Obstructive Pulmonary Disease (COPD), Pneumonia, Respiratory Failure, Sleep Apnea, Tuberculosis Neurological Medical History: Reports: Migraine, Seizures Endocrine Medical History: Reports: Diabetes Mellitus Type 1, Diabetes Mellitus Type 2, Hypothyroidism Denies: Hyperthyroidism Renal/ Medical History: Denies: End Stage Renal Disease Malignancy Medical History: Denies: Breast Cancer, Cervical Cancer, Leukemia, Lung Cancer, Ovarian Cancer GI Medical History: Reports: Gastroesophageal Reflux Disease Denies: Crohn's Disease, Hiatal Hernia Musculoskeltal Medical History: Denies: Arthritis Psychiatric Medical History: Denies: Bipolar Disorder, Dementia, Depression, Post Traumatic Stress Disorder Hematology: Denies: Anemia, Hemophilia, Sickle Cell Disease Infectious Medical History: Denies: HIV Past Surgical History Past Surgical History: Reports: Section - x 2, Tubal Ligation Denies: Appendectomy, Cholecystectomy, Colostomy, Coronary Artery Bypass Graft, Gastric Bypass Surgery, Herniorrhaphy, Hysterectomy, Mastectomy, Pacemaker, Tonsillectomy Social History Lives with: Family Smoking Status: Current Every Day Smoker Frequency of Alcohol Use: None Hx Recreational Drug Use: No Drugs: None Hx Prescription Drug Abuse: No Family History Family History: Reviewed & Not Pertinent, CAD, COPD, DM, Hyperlipidemia, Hypertension, Malignancy, Thyroid Disfunction, Other - Liver disease Parental Family History Reviewed: Yes Children Family History Reviewed: Yes Sibling(s) Family History Reviewed.: Yes Medication/Allergy Home Medications: Esomeprazole Mag Trihydrate [Nexium] 40 mg PO DAILY 06/12/18 Gabapentin [Neurontin 400 mg Capsule] 800 mg PO Q8 06/12/18 Insulin Detemir [Levemir] 30 unit SQ BID 04/17/19 Levothyroxine Sodium [Synthroid] 125 mcg PO Q6AM 04/17/19 Allergies/Adverse Reactions: clarithromycin [From Biaxin] Allergy (Mild, Verified 06/12/18 11:33) Hives codeine [Codeine] Allergy (Mild, Verified 06/12/18 11:33) Hives meperidine HCl [From Demerol] Allergy (Mild, Verified 06/12/18 11:33) Hives Influenza Virus Vaccines [Influenza Virus Vaccine] Allergy (Verified 06/12/18 11:33) Review of Systems Review of Systems: as per hpi Physical Exam Vital Signs: Temp Pulse Resp BP Pulse Ox 98.1 F 96 14 106/58 L 88 L 04/17/19 04:41 04/17/19 04:41 04/17/19 12:00 04/17/19 10:23 04/17/19 12:00 Intake & Output 04/16/19 04/17/19 04/18/19 06:59 06:59 06:59 Intake Total 1200 Balance 1200 Weight 62.4 kg General appearance: PRESENT: mild distress Head exam: PRESENT: atraumatic, normocephalic Respiratory exam: PRESENT: crackles, decreased breath sounds, prolonged expiratory phas, rhonchi, tachypnea, wheezes GI/Abdominal exam: PRESENT: normal bowel sounds, soft. ABSENT: distended, guarding, mass, organolmegaly, rebound, tenderness Neurological exam: PRESENT: alert, awake, oriented to person, oriented to place, oriented to time, oriented to situation, CN II-XII grossly intact. ABSENT: motor sensory deficit Skin exam: PRESENT: dry, intact, warm. ABSENT: cyanosis, rash Results Laboratory Results: 04/17/19 08:07 04/17/19 08:07 04/17/19 04/17/19 08:07 08:07 WBC 4.9 RBC 4.20 Hgb 10.2 L Hct 32.3 L MCV 77 L MCH 24.3 L MCHC 31.6 L RDW 15.5 H Plt Count 227 Seg Neutrophils % 53.6 Sodium 132.0 L Potassium 4.3 Chloride 97 L Carbon Dioxide 24 Anion Gap 11 BUN 14 Creatinine 0.68 Est GFR ( Amer) > 60 Glucose 558 H* Calcium 9.1 Total Bilirubin 0.2 AST 22 Alkaline Phosphatase 138 H Total Protein 6.5 Albumin 3.7 Impressions: Chest X-Ray 04/17/19 10:19 IMPRESSION: NO SIGNIFICANT RADIOGRAPHIC FINDING IN THE CHEST. Assessment and Plan - Diagnosis (1) Acute and chronic respiratory failure with hypoxia Is this a current diagnosis for this admission?: Yes Plan: Most likely due to asthma/COPD exacerbation complicated by current heavy smoking. Admit to telemetry, supplemental oxygen, nebs, flutter valve, incentive spirometry, IV steroids, empiric antibiotics, LAMA, LABA, ICS, sputum culture. (2) Acute exacerbation of COPD with asthma Is this a current diagnosis for this admission?: Yes Plan: As per #1. (3) GERD (gastroesophageal reflux disease) Qualifiers: Esophagitis presence: without esophagitis Qualified Code(s): K21.9 - Gastro-esophageal reflux disease without esophagitis Is this a current diagnosis for this admission?: Yes Plan: Restart home meds. Patient does have anemia however denies any hematemesis, melena. Check iron panel and guaiac. Outpatient PCP and gastroenterology follow-up. (4) Hypothyroidism Qualifiers: Is this a current diagnosis for this admission?: Yes Plan: Restart home meds. Will check for TSH. (5) IDDM (insulin dependent diabetes mellitus) Is this a current diagnosis for this admission?: Yes Plan: Uncontrolled due to noncompliance. Hemoglobin A1c 11.1%. Long-acting insulin, pre-meal insulin, sliding scale insulin, Accu-Chek, diabetic diet. Adjust insulin dosage as needed. (6) Tobacco abuse Is this a current diagnosis for this admission?: Yes Plan: Chronic heavy smoker. Extensively counseled on quitting. Nicotine patch.
[2019-04-17] MEDS: LEVOFLOXACIN 500 MG TABLET PO SCH (13:06)
[2019-04-17] MEDS: IPRATROPIUM/ALBUTEROL 0.5-2.5 MG/3 ML AMPUL NEB SCH ×2 (13:06→20:04)
[2019-04-17] MEDS: GUAIFENESIN 600 MG TABLET.SA PO SCH ×2 (13:06→21:42)
[2019-04-17] MEDS: METHYLPREDNISOLONE INJ 40 MG/1 ML SDV IV SCH ×2 (14:02→21:42)
[2019-04-17] MEDS: TIOTROPIUM BROMIDE DPI 5 CAP/KIT (18 MCG/CAP) IH SCH (14:03)
[2019-04-17] MEDS: NORMAL SALINE 1000 ML 1,000 ML IV PRN (14:11)
[2019-04-17 15:03] LABS: ABSOLUTE RETICS # 0.092 10^6/uL (0.028-0.122); RETICULOCYTE COUNT (AUTO) 2.19 % (0.66-2.85)
[2019-04-17 15:27] LABS: IRON(TIBC) 26.9 ug/dL (37-170)
[2019-04-17 15:28] LABS: ANION GAP 12 (5-19); BLOOD UREA NITROGEN 14 mg/dL (7-20); CALCIUM 8.6 mg/dL (8.4-10.2); CARBON DIOXIDE 19 mmol/L (22-30); CHLORIDE 101 mmol/L (98-107); POTASSIUM 4.5 mmol/L (3.6-5.0)
[2019-04-17 15:42] LABS: GLUCOSE 502 mg/dL (75-110)
[2019-04-17] MEDS ORDERED: INSULIN LISPRO 100 UNIT/ML 3 ML VIAL SUBCUT ONE (15:51)
[2019-04-17 16:03] LABS: FERRITIN 6.64 ng/mL (6.2-137.0)
[2019-04-17] MEDS: OXYCODONE-ACETAMINOPHEN 5-325 MG TABLET PO PRN ×2 (16:34→23:56)
[2019-04-17] MEDS ORDERED: INSULIN GLARGINE,HUM.REC.ANLOG 1,000 UNIT/10 ML VIAL SUBCUT SCH ×2 (18:00→22:00)
[2019-04-17] MEDS: INSULIN LISPRO 100 UNIT/ML 3 ML VIAL SUBCUT SCH ×2 (18:01→21:39)
[2019-04-17] MEDS: FERROUS SULFATE 325 MG TABLET PO SCH (18:01)
[2019-04-17] MEDS: PANTOPRAZOLE SODIUM 40 MG TABLET.DR PO SCH (18:01)
[2019-04-18] MEDS: METHYLPREDNISOLONE INJ 40 MG/1 ML SDV IV SCH ×3 (05:56→21:37)
[2019-04-18] MEDS: PANTOPRAZOLE SODIUM 40 MG TABLET.DR PO SCH ×2 (05:56→16:46)
[2019-04-18 06:24] LABS: ABSOLUTE LYMPHOCYTES (AUTO) 0.6 10^3/uL (0.5-4.7); ABSOLUTE MONOCYTES (AUTO) 0.3 10^3/uL (0.1-1.4); ABSOLUTE NEUT (AUTO) 9.1 10^3/uL (1.7-8.2); BASOPHILS % (AUTO) 0.2 % (0-2); HEMATOCRIT 30.6 % (36.0-47.0); HEMOGLOBIN 9.8 g/dL (12.0-15.5); LYMPHOCYTES % (AUTO) 5.8 % (13-45); MEAN CORPUSCULAR HEMOGLOBIN 24.4 pg (27.0-33.4); MEAN CORPUSCULAR VOLUME 76 fl (80-97); PLATELET COUNT 218 10^3/uL (150-450); RED BLOOD COUNT 4.02 10^6/uL (3.72-5.28); RED CELL DISTRIBUTION WIDTH 15.9 % (11.5-14.0); TOTAL CELLS COUNTED % (AUTO) 100 %
[2019-04-18 06:40] LABS: ALBUMIN 3.7 g/dL (3.5-5.0); ALKALINE PHOSPHATASE 140 U/L (38-126); ANION GAP 12 (5-19); ASPARTATE AMINO TRANSFERASE 17 U/L (14-36); BILIRUBIN,DIRECT 0.1 mg/dL (0.0-0.4); BILIRUBIN,TOTAL 0.2 mg/dL (0.2-1.3); BLOOD UREA NITROGEN 12 mg/dL (7-20); CALCIUM 8.9 mg/dL (8.4-10.2); CARBON DIOXIDE 20 mmol/L (22-30); CHLORIDE 102 mmol/L (98-107); POTASSIUM 4.9 mmol/L (3.6-5.0); TOTAL PROTEIN 6.5 g/dL (6.3-8.2)
[2019-04-18 06:48] LABS: GLUCOSE 487 mg/dL (75-110)
[2019-04-18] MEDS: IPRATROPIUM/ALBUTEROL 0.5-2.5 MG/3 ML AMPUL NEB SCH ×3 (07:40→19:54)
[2019-04-18] MEDS: OXYCODONE-ACETAMINOPHEN 5-325 MG TABLET PO PRN ×3 (07:58→21:35)
[2019-04-18] MEDS: NORMAL SALINE 1000 ML 1,000 ML IV PRN ×2 (08:01→16:41)
[2019-04-18] MEDS: INSULIN LISPRO 100 UNIT/ML 3 ML VIAL SUBCUT SCH ×4 (08:27→21:37)
[2019-04-18] MEDS ORDERED: INSULIN GLARGINE,HUM.REC.ANLOG 1,000 UNIT/10 ML VIAL SUBCUT SCH (10:00)
[2019-04-18] MEDS: GUAIFENESIN 600 MG TABLET.SA PO SCH ×2 (11:36→21:37)
[2019-04-18] MEDS: FERROUS SULFATE 325 MG TABLET PO SCH (11:36)
[2019-04-18] MEDS: TIOTROPIUM BROMIDE DPI 5 CAP/KIT (18 MCG/CAP) IH SCH (11:38)
[2019-04-18] MEDS: ENOXAPARIN SODIUM INJ 40 MG/0.4 ML DISP.SYRIN SUBCUT SCH ×2 (11:39→12:01)
[2019-04-18] MEDS: PT OWN MED (POM) SUBCUT SCH ×2 (11:41→21:53)
[2019-04-18] MEDS: LEVOFLOXACIN 500 MG TABLET PO SCH (11:51)
--- NOTE | 2019-04-18 12:04 | PDOC PROGRESS REPORT ---
Subjective Progress Note for:: 04/18/19 Subjective:: CHRISTIANO ST is a 33 year old female past medical history of IDDM, PVD, asthma/COPD on home oxygen as needed, tobacco abuse, hypothyroidism, GERD, presenting to ED complaining of progressively worsening cough for the last 2 to 3 weeks, treated with productive sputum, back pain, subjective fever and chills. Denies any sick contact, recent travel, nausea, vomiting, diarrhea, constipation or any urinary symptoms. In ED she was found to be in respiratory distress with elevated blood glucose levels. Patient was started on IV steroids, IV insulin, nebs and hospital was consulted for admission. 04/18/2019. No acute events overnight. Patient is still coughing significantly however SPO2 WNL on room air, but pain has resolved, any fever, chills, nausea, vomiting, diarrhea, constipation or any urinary symptoms. Her blood glucose still uncontrolled, she has received 20 units of glargine, 46 units of lispro since admission however the blood glucose is still uncontrolled. She is stating that she responds better to leukemia which unfortunately we do not carry. Patient has brought her on the femur supply which has been initiated. Reason For Visit: ASTHMA/COPD EXACERBATION Physical Exam Vital Signs: Temp Pulse Resp BP Pulse Ox 98.1 F 74 14 130/80 H 93 04/18/19 03:37 04/18/19 07:40 04/18/19 07:40 04/18/19 04:56 04/18/19 07:40 Intake & Output 04/17/19 04/18/19 04/19/19 06:59 06:59 06:59 Intake Total 2200 Output Total 870 Balance 1330 Weight 62.4 kg 51.2 kg General appearance: PRESENT: no acute distress, well-developed, well-nourished Head exam: PRESENT: atraumatic, normocephalic Respiratory exam: PRESENT: clear to auscultation boubacar, rhonchi, symmetrical, tachypnea, wheezes. ABSENT: rales GI/Abdominal exam: PRESENT: normal bowel sounds, soft. ABSENT: distended, guarding, mass, organolmegaly, rebound, tenderness Neurological exam: PRESENT: alert, awake, oriented to person, oriented to place, oriented to time, oriented to situation, CN II-XII grossly intact. ABSENT: motor sensory deficit Results Laboratory Results: 04/18/19 05:31 04/18/19 05:31 04/17/19 04/17/19 04/17/19 08:07 14:55 14:55 WBC RBC Hgb Hct MCV MCH MCHC RDW Plt Count Seg Neutrophils % Retic Count (auto) 2.19 Sodium 132.0 L Potassium 4.5 Chloride 101 Carbon Dioxide 19 L Anion Gap 12 BUN 14 Creatinine 0.60 Est GFR ( Amer) > 60 Glucose 502 H* Calcium 8.6 Iron 26.9 L TIBC 388 % Saturation 7 Ferritin 6.64 Total Bilirubin AST Alkaline Phosphatase Total Protein Albumin Vitamin B12 898.0 Folate 16.30 04/18/19 04/18/19 05:31 05:31 WBC 10.0 D RBC 4.02 Hgb 9.8 L Hct 30.6 L MCV 76 L MCH 24.4 L MCHC 32.0 RDW 15.9 H Plt Count 218 Seg Neutrophils % 91.0 H Retic Count (auto) Sodium 133.7 L Potassium 4.9 Chloride 102 Carbon Dioxide 20 L Anion Gap 12 BUN 12 Creatinine 0.55 Est GFR ( Amer) > 60 Glucose 487 H* Calcium 8.9 Iron TIBC % Saturation Ferritin Total Bilirubin 0.2 AST 17 Alkaline Phosphatase 140 H Total Protein 6.5 Albumin 3.7 Vitamin B12 Folate 04/18/19 05:31 NT-Pro-B Natriuret Pep 610 H Impressions: Chest X-Ray 04/17/19 10:19 IMPRESSION: NO SIGNIFICANT RADIOGRAPHIC FINDING IN THE CHEST. Assessment and Plan - Diagnosis (1) Acute and chronic respiratory failure with hypoxia Is this a current diagnosis for this admission?: Yes Plan: Improving. SPO2 WNL on RA. Most likely due to asthma/COPD exacerbation complicated by current heavy smoking. Day 2 IV steroids. Day 2 IV antibiotics. Day 2 IV ceftriaxone. Cultures no growth so far. Continue telemetry, supplemental oxygen, nebs, flutter valve, incentive spirometry, IV steroids, empiric antibiotics, LAMA, LABA, ICS. Follow-up cultures. (2) Acute exacerbation of COPD with asthma Is this a current diagnosis for this admission?: Yes Plan: As per #1. (3) GERD (gastroesophageal reflux disease) Qualifiers: Esophagitis presence: without esophagitis Qualified Code(s): K21.9 - Gastro-esophageal reflux disease without esophagitis Is this a current diagnosis for this admission?: Yes Plan: Restart home meds. Patient does have anemia however denies any hematemesis, melena. 04/18/2019. Guaiac negative. Iron 26.9, TIBC 3 188, saturation 7%, ferritin 6.64. Start on supplemental ferrous sulfate. Outpatient PCP follow-up. (4) Hypothyroidism Qualifiers: Is this a current diagnosis for this admission?: Yes Plan: Restart home meds. Will check for TSH. (5) IDDM (insulin dependent diabetes mellitus) Is this a current diagnosis for this admission?: Yes Plan: Uncontrolled due to noncompliance and IV steroids for acute COPD/asthma exacerbation. Hemoglobin A1c 11.1%. He has been started on diabetic protocol however stating that she does not respond very well to Lantus. \ Unfortunately we do not carry Levemir in [facility] Patient has brought in her own supplies which has been verified by pharmacy and started. She takes 40 units of Levemir twice daily at home. If patient remains hypoglycemic and becomes acidotic will start on insulin drip to avoid DKA. Continue long-acting insulin, pre-meal insulin, sliding scale insulin, Accu- Chek, diabetic diet. Adjust insulin dosage as needed. (6) Tobacco abuse Is this a current diagnosis for this admission?: Yes Plan: Chronic heavy smoker. Extensively counseled on quitting. Nicotine patch.
[2019-04-18] MEDS ORDERED: INSULIN GLARGINE,HUM.REC.ANLOG 1,000 UNIT/10 ML VIAL SUBCUT ONE (12:30)
[2019-04-18] MEDS ORDERED: (PENDING PHARMACY ID) (Insulin Detemir [Levemir] 35 UNIT) SQ SCH (18:00)
[2019-04-19 06:10] LABS: ABSOLUTE LYMPHOCYTES (AUTO) 0.7 10^3/uL (0.5-4.7); ABSOLUTE MONOCYTES (AUTO) 0.3 10^3/uL (0.1-1.4); ABSOLUTE NEUT (AUTO) 10.4 10^3/uL (1.7-8.2); BASOPHILS % (AUTO) 0.1 % (0-2); HEMATOCRIT 31.7 % (36.0-47.0); HEMOGLOBIN 10.2 g/dL (12.0-15.5); LYMPHOCYTES % (AUTO) 6.4 % (13-45); MEAN CORPUSCULAR HEMOGLOBIN 24.1 pg (27.0-33.4); MEAN CORPUSCULAR HGB CONC 32.1 g/dL (32.0-36.0); MEAN CORPUSCULAR VOLUME 75 fl (80-97); PLATELET COUNT 255 10^3/uL (150-450); RED BLOOD COUNT 4.21 10^6/uL (3.72-5.28); RED CELL DISTRIBUTION WIDTH 16.1 % (11.5-14.0); SEGMENTED NEUTROPHILS % (AUTO) 90.5 % (42-78); TOTAL CELLS COUNTED % (AUTO) 100 %; WHITE BLOOD COUNT 11.5 10^3/uL (4.0-10.5)
[2019-04-19] MEDS: PANTOPRAZOLE SODIUM 40 MG TABLET.DR PO SCH (06:32)
[2019-04-19] MEDS: METHYLPREDNISOLONE INJ 40 MG/1 ML SDV IV SCH (06:32)
[2019-04-19 06:34] LABS: ALBUMIN 3.9 g/dL (3.5-5.0); ALKALINE PHOSPHATASE 106 U/L (38-126); ANION GAP 9 (5-19); ASPARTATE AMINO TRANSFERASE 17 U/L (14-36); BILIRUBIN,DIRECT 0.1 mg/dL (0.0-0.4); BILIRUBIN,TOTAL 0.2 mg/dL (0.2-1.3); BLOOD UREA NITROGEN 12 mg/dL (7-20); CALCIUM 9.3 mg/dL (8.4-10.2); CARBON DIOXIDE 23 mmol/L (22-30); CHLORIDE 107 mmol/L (98-107); GLUCOSE 126 mg/dL (75-110); POTASSIUM 4.1 mmol/L (3.6-5.0)
[2019-04-19] MEDS: OXYCODONE-ACETAMINOPHEN 5-325 MG TABLET PO PRN (06:53)
[2019-04-19] MEDS: IPRATROPIUM/ALBUTEROL 0.5-2.5 MG/3 ML AMPUL NEB SCH (07:47)
[2019-04-19] MEDS: INSULIN LISPRO 100 UNIT/ML 3 ML VIAL SUBCUT SCH (08:36)
[2019-04-19] MEDS ORDERED: GUAIFENESIN/D-METHORPHAN (200-20 MG) SYRUP 10 ML PO ONE (09:03)
[2019-04-19] MEDS: FERROUS SULFATE 325 MG TABLET PO SCH (09:58)
[2019-04-19] MEDS: GUAIFENESIN 600 MG TABLET.SA PO SCH (09:58)
[2019-04-19] MEDS: TIOTROPIUM BROMIDE DPI 5 CAP/KIT (18 MCG/CAP) IH SCH (10:00)
[2019-04-19] MEDS: LEVOFLOXACIN 500 MG TABLET PO SCH (10:01)
[2019-04-19] MEDS: PT OWN MED (POM) SUBCUT SCH (10:02)
[2019-04-19 10:21] VITALS: BP 153/82
--- NOTE | 2019-04-22 12:09 | PDOC DISCHARGE SUMMARY ---
General - Admit/Disc Date/PCP Admission Date/Primary Care Provider: 04/17/19 11:32 ASHLEE DUMONT MD Discharge Date: 04/19/19 - Discharge Diagnosis (1) Acute and chronic respiratory failure with hypoxia Is this a current diagnosis for this admission?: Yes (2) Acute exacerbation of COPD with asthma Is this a current diagnosis for this admission?: Yes (3) GERD (gastroesophageal reflux disease) Is this a current diagnosis for this admission?: Yes (4) Hypothyroidism Is this a current diagnosis for this admission?: Yes (5) IDDM (insulin dependent diabetes mellitus) Is this a current diagnosis for this admission?: Yes (6) Tobacco abuse Is this a current diagnosis for this admission?: Yes - Additional Information Resuscitation Status: Full Code Discharge Diet: As Tolerated Discharge Activity: Activity As Tolerated, Energy Conservation Prescriptions: Ferrous Sulfate [Feosol 325 mg Tablet] 325 mg PO DAILY 30 Days #30 tablet Levofloxacin [Levaquin 500 mg Tablet] 500 mg PO DAILY 4 Days #4 tablet Guaifenesin/D-Methorphan Hb [Robitussin-Dm Syrup 10 Ml Udcup] 10 ml PO QID PRN 7 Days #1 syrup PRN Reason: Budesonide/Formoterol Fumarate [Symbicort Hfa 160-4.5 Mcg Inhaler 6 gm] 1 puff IH Q12 30 Days #1 inhaler Tramadol HCl [Ultram 50 mg Tablet] 50 mg PO Q8HP PRN 7 Days #21 tab PRN Reason: Home Medications: Esomeprazole Mag Trihydrate [Nexium] 40 mg PO DAILY 06/12/18 Gabapentin [Neurontin 400 mg Capsule] 800 mg PO Q8 06/12/18 Insulin Aspart [Novolog Insulin (Aspart) 100 unit/mL] 0 unit SUBCUT .SLD SCALE 04/17/19 Insulin Detemir [Levemir] 35 unit SQ BID 04/17/19 Levothyroxine Sodium [Synthroid] 125 mcg PO Q6AM 04/17/19 Ropinirole HCl [Requip 0.25 mg Tablet] 0.25 mg PO QHS 04/17/19 Budesonide/Formoterol Fumarate [Symbicort Hfa 160-4.5 Mcg Inhaler 6 gm] 1 puff IH Q12 30 Days #1 inhaler 04/19/19 Ferrous Sulfate [Feosol 325 mg Tablet] 325 mg PO DAILY 30 Days #30 tablet 04/19/19 Guaifenesin/D-Methorphan Hb [Robitussin-Dm Syrup 10 Ml Udcup] 10 ml PO QID PRN 7 Days #1 syrup 04/19/19 Levofloxacin [Levaquin 500 mg Tablet] 500 mg PO DAILY 4 Days #4 tablet 04/19/19 Tramadol HCl [Ultram 50 mg Tablet] 50 mg PO Q8HP PRN 7 Days #21 tab 04/19/19 History of Present Illness History of Present Illness: CHRISTIANO ST is a 33 year old female past medical history of IDDM, PVD, asthma/COPD on home oxygen as needed, tobacco abuse, hypothyroidism, GERD, presenting to ED complaining of progressively worsening cough for the last 2 to 3 weeks, treated with productive sputum, back pain, subjective fever and chills. Denies any sick contact, recent travel, nausea, vomiting, diarrhea, constipation or any urinary symptoms. In ED she was found to be in respiratory distress with elevated blood glucose levels. Patient was started on IV steroids, IV insulin, nebs and hospital was consulted for admission. Hospital Course Hospital Course: (1) Acute and chronic respiratory failure with hypoxia Resolved. SPO2 WNL on RA. Most likely due to asthma/COPD exacerbation complicated by current heavy smoking. Received 3 IV steroids. Received 3 days of IV Cultures negative. Was admitted to telemetry, supplemental oxygen, nebs, flutter valve, incentive spirometry, IV steroids, empiric antibiotics, LAMA, LABA, ICS. Discharged on ICS, LABA, and 3 more days of Levofloxacin (2) Acute exacerbation of COPD with asthma As per #1. (3) GERD (gastroesophageal reflux disease) Restarted home meds. Patient does have anemia however denies any hematemesis, melena. 04/18/2019. Guaiac negative. Iron 26.9, TIBC 3 188, saturation 7%, ferritin 6.64. Discharged on Ferrous sulfate. Outpatient PCP follow-up. (4) Hypothyroidism Restarted on home meds. TSH WNL. (5) IDDM (insulin dependent diabetes mellitus) Uncontrolled due to noncompliance and IV steroids for acute COPD/asthma exacerbation. Hemoglobin A1c 11.1%. He has been started on diabetic protocol however stating that she does not respond very well to Lantus. \ Unfortunately we do not carry Levemir in [facility] Patient has brought in her own supplies which has been verified by pharmacy and started. She takes 40 units of Levemir twice daily at home. Improved after being started on home meds. Restart home meds upon discharge. out patient PCP and endocrinology follow up. (6) Tobacco abuse Chronic heavy smoker. Extensively counseled on quitting. Nicotine patch. Physical Exam Vital Signs: Temp Pulse Resp BP Pulse Ox 97.8 F 76 17 135/77 H 96 04/19/19 10:13 04/19/19 10:13 04/19/19 10:13 04/19/19 10:13 04/19/19 10:13 General appearance: PRESENT: no acute distress, well-developed, well-nourished Head exam: PRESENT: atraumatic, normocephalic Eye exam: PRESENT: conjunctiva pink, EOMI, PERRLA. ABSENT: scleral icterus Ear exam: PRESENT: normal external ear exam Mouth exam: PRESENT: moist, tongue midline Neck exam: ABSENT: carotid bruit, JVD, lymphadenopathy, thyromegaly Respiratory exam: PRESENT: clear to auscultation boubacar. ABSENT: rales, rhonchi, wheezes Cardiovascular exam: PRESENT: RRR. ABSENT: diastolic murmur, rubs, systolic murmur Pulses: PRESENT: normal dorsalis pedis pul Vascular exam: PRESENT: normal capillary refill GI/Abdominal exam: PRESENT: normal bowel sounds, soft. ABSENT: distended, guarding, mass, organolmegaly, rebound, tenderness Rectal exam: PRESENT: deferred Extremities exam: PRESENT: full ROM. ABSENT: calf tenderness, clubbing, pedal edema Neurological exam: PRESENT: alert, awake, oriented to person, oriented to place, oriented to time, oriented to situation, CN II-XII grossly intact. ABSENT: motor sensory deficit Psychiatric exam: PRESENT: appropriate affect, normal mood. ABSENT: homicidal ideation, suicidal ideation Skin exam: PRESENT: dry, intact, warm. ABSENT: cyanosis, rash Results Laboratory Results: 04/19/19 05:33 04/19/19 05:33 04/18/19 05:31 NT-Pro-B Natriuret Pep 610 H Impressions: Chest X-Ray 04/17/19 10:19 IMPRESSION: NO SIGNIFICANT RADIOGRAPHIC FINDING IN THE CHEST. Qualifiers - * PATIENT BEING DISCHARGED WITH ANY OF THE FOLLOWING DIAGNOSIS: No Acute Heart Failure - Is this a Heart Failure Patient?: No
== END 2019-04-19 11:20 | disposition home or self-care (01) | DRG 190 ==
LOC: ER 04:39 → EH 11:32 → 5 19:54
PROVIDERS: ADMIT Internal Medicine; ATTEND Internal Medicine
PROC: 5A09457 Assistance with Respiratory Ventilation, 24-96 Consecutive Hours, Continuous Positive Airway Pressure (ICD-10-PCS; principal; 2019-04-17)
DX: J44.1 Chronic obstructive pulmonary disease with (acute) exacerbation (principal); J96.21 Acute and chronic respiratory failure with hypoxia; E11.51 Type 2 diabetes mellitus with diabetic peripheral angiopathy without gangrene; E03.9 Hypothyroidism, unspecified; K21.9 Gastro-esophageal reflux disease without esophagitis; I25.10 Atherosclerotic heart disease of native coronary artery without angina pectoris; F17.210 Nicotine dependence, cigarettes, uncomplicated; Z79.4 Long term (current) use of insulin; Z99.81 Dependence on supplemental oxygen; Z79.899 Other long term (current) drug therapy; Z79.890 Hormone replacement therapy; Z88.6 Allergy status to analgesic agent; Z88.7 Allergy status to serum and vaccine; Z91.19 Patient's noncompliance with other medical treatment and regimen
CPT/HCPCS: 36415; 71046; 80053; 82272; 82607; 82728; 82746; 82962; 83036; 83540; 83550; 83880; 84443; 85025; 85045; 87070; 87205; 94640; 94660; 96365; 96375; 99284; J1650; J1815; J1885; J2920; J3475; J3490; J7030; J7512; J7620

== ENCOUNTER 2019-06-08 11:11 | Emergency (ER) | payer MEDICAID ==
--- NOTE | 2019-06-08 11:20 | ER Document Report ---
ED Medical Screen (RME) - General Chief Complaint: Abscess Stated Complaint: POSSIBLE ABSCESS/NECK PAIN Time Seen by Provider: 06/08/19 11:16 Primary Care Provider: ASHLEE DUMONT MD [Primary Care Provider] - Follow up as needed Mode of Arrival: Ambulatory Information source: Patient Notes: 33-year-old female presented to ED for an abscess to the back of her head 2 weeks. She states it did best she used peroxide and Neosporin and a soap wash on it and now it is become more painful. It is just below her hairline the center of the head on the back. She states her last menstrual cycle was May 18, 2019. Smokes a pack a day no alcohol has any illicit drugs. Diabetes RLS, nonalcoholic fatty liver disease, migraines, neuropathy asthma, 2 C-sections and one stillborn. I have greeted and performed a rapid initial assessment of this patient. A comprehensive ED assessment and evaluation of the patient, analysis of test results and completion of medical decision making process will be conducted by an additional ED providers. TRAVEL OUTSIDE OF THE [place] IN LAST 30 DAYS: No - Related Data Allergies/Adverse Reactions: clarithromycin [From Biaxin] Allergy (Mild, Verified 06/12/18 11:33) Hives codeine [Codeine] Allergy (Mild, Verified 06/12/18 11:33) Hives meperidine HCl [From Demerol] Allergy (Mild, Verified 06/12/18 11:33) Hives Influenza Virus Vaccines [Influenza Virus Vaccine] Allergy (Verified 06/12/18 11:33) Past Medical History - Past Medical History Cardiac Medical History: Reports: Hx Peripheral Vascular Disease, Hx Heart Murmur Denies: Hx Atrial Fibrillation, Hx Congestive Heart Failure, Hx Coronary Artery Disease, Hx Heart Attack, Hx Hypercholesterolemia, Hx Hypertension, Hx Pulmonary Embolism Pulmonary Medical History: Reports: Hx Asthma Denies: Hx Bronchitis, Hx COPD, Hx Pneumonia, Hx Respiratory Failure, Hx Sleep Apnea, Hx Tuberculosis Neurological Medical History: Reports: Hx Migraine, Hx Seizures. Denies: Hx Cerebrovascular Accident, Hx Parkinson's Disease Endocrine Medical History: Reports: Hx Diabetes Mellitus Type 1, Hx Diabetes Mellitus Type 2, Hx Hypothyroidism. Denies: Hx Graves' Disease, Hx Hyperthyroidism Renal/ Medical History: Denies: Hx End Stage Renal Disease, Hx Kidney Stones, Hx Ovarian Cysts, Hx Peritoneal Dialysis, Hx Pelvic Inflammatory Disease Malignancy Medical History: Denies: Hx Breast Cancer, Hx Cervical Cancer, Hx Leukemia, Hx Lung Cancer, Hx Ovarian Cancer GI Medical History: Reports: Hx Gastroesophageal Reflux Disease, Hx Ulcer. Denies: Hx Crohn's Disease, Hx Hiatal Hernia, Hx Irritable Bowel, Hx Liver Failure, Hx Pancreatitis Musculoskeltal Medical History: Denies Hx Arthritis, Denies Hx Multiple Sclerosis, Denies Hx Systemic Lupus Erythematosus Skin Medical History: Reports Hx Cellulitis Psychiatric Medical History: Reports: Hx Depression Denies: Hx Bipolar Disorder, Hx Dementia, Hx Post Traumatic Stress Disorder, Hx Schizophrenia Infectious Medical History: Denies: Hx HIV Past Surgical History: Reports: Hx Section - x 2, Hx Gynecologic Surgery - D&C, Hx Oral Surgery, Hx Tubal Ligation. Denies: Hx Appendectomy, Hx Bowel Surgery, Hx Cholecystectomy, Hx Colostomy, Hx Coronary Artery Bypass Graft, Hx Gastric Bypass Surgery, Hx Herniorrhaphy, Hx Hysterectomy, Hx Mastectomy, Hx Pacemaker, Hx Tonsillectomy - Immunizations Immunizations up to date: Yes Hx Diphtheria, Pertussis, Tetanus Vaccination: Yes Physical Exam - Vital signs Vitals: Temp Pulse Resp BP Pulse Ox 97.9 F 85 16 135/86 H 98 06/08/19 11:15 06/08/19 11:15 06/08/19 11:15 06/08/19 11:15 06/08/19 11:15 Course - Vital Signs Vital signs: Temp Pulse Resp BP Pulse Ox 97.9 F 85 16 135/86 H 98 06/08/19 11:15 06/08/19 11:15 06/08/19 11:15 06/08/19 11:15 06/08/19 11:15 Doctor's Discharge - Discharge Referrals: ASHLEE DUMONT MD [Primary Care Provider] - Follow up as needed
--- NOTE | 2019-06-08 11:43 | ER Document Report ---
ED Skin Rash/Insect Bite/Abscs - General Chief Complaint: Abscess Stated Complaint: POSSIBLE ABSCESS/NECK PAIN Time Seen by Provider: 06/08/19 11:16 Primary Care Provider: ASHLEE DUMONT MD [ACTIVE STAFF] - Follow up as needed Mode of Arrival: Ambulatory Information source: Patient TRAVEL OUTSIDE OF THE [place] IN LAST 30 DAYS: No - HPI Patient complains to provider of: Skin rash/lesion - 33 year-old woman presents to the emergency department history of a very swelling and pain in right occipital scalp region. She states that it is extremely tender and painful and has been there for the past few days. She has had abscesses in the past located in other areas. Denies allergies to medications. Pain Level: 5 Skin Character: Abscess - Related Data Allergies/Adverse Reactions: clarithromycin [From Biaxin] Allergy (Mild, Verified 06/08/19 11:17) Hives codeine [Codeine] Allergy (Mild, Verified 06/08/19 11:17) Hives meperidine HCl [From Demerol] Allergy (Mild, Verified 06/08/19 11:17) Hives Influenza Virus Vaccines [Influenza Virus Vaccine] Allergy (Verified 06/08/19 11:17) Past Medical History - General Information source: Patient - Social History Smoking Status: Current Every Day Smoker Chew tobacco use (# tins/day): No Frequency of alcohol use: None Drug Abuse: None Family History: Reviewed & Not Pertinent, CAD, COPD, DM, Hyperlipidemia, Hypertension, Malignancy, Thyroid Disfunction, Other - Liver disease Patient has suicidal ideation: No Patient has homicidal ideation: No - Past Medical History Cardiac Medical History: Reports: Hx Peripheral Vascular Disease, Hx Heart Murmur Denies: Hx Atrial Fibrillation, Hx Congestive Heart Failure, Hx Coronary Artery Disease, Hx Heart Attack, Hx Hypercholesterolemia, Hx Hypertension, Hx Pulmonary Embolism Pulmonary Medical History: Reports: Hx Asthma Denies: Hx Bronchitis, Hx COPD, Hx Pneumonia, Hx Respiratory Failure, Hx Sleep Apnea, Hx Tuberculosis Neurological Medical History: Reports: Hx Migraine, Hx Seizures. Denies: Hx Cerebrovascular Accident, Hx Parkinson's Disease Endocrine Medical History: Reports: Hx Diabetes Mellitus Type 1, Hx Diabetes Mellitus Type 2, Hx Hypothyroidism. Denies: Hx Graves' Disease, Hx Hyperthyroidism Renal/ Medical History: Denies: Hx End Stage Renal Disease, Hx Kidney Stones, Hx Ovarian Cysts, Hx Peritoneal Dialysis, Hx Pelvic Inflammatory Disease Malignancy Medical History: Denies: Hx Breast Cancer, Hx Cervical Cancer, Hx Leukemia, Hx Lung Cancer, Hx Ovarian Cancer GI Medical History: Reports: Hx Gastroesophageal Reflux Disease, Hx Ulcer. Denies: Hx Crohn's Disease, Hx Hiatal Hernia, Hx Irritable Bowel, Hx Liver Failure, Hx Pancreatitis Musculoskeletal Medical History: Denies Hx Arthritis, Denies Hx Multiple Sclerosis, Denies Hx Systemic Lupus Erythematosus Skin Medical History: Reports Hx Cellulitis Psychiatric Medical History: Reports: Hx Depression Denies: Hx Bipolar Disorder, Hx Dementia, Hx Post Traumatic Stress Disorder, Hx Schizophrenia Infectious Medical History: Denies: Hx HIV Past Surgical History: Reports: Hx Section - x 2, Hx Gynecologic Surgery - D&C, Hx Oral Surgery, Hx Tubal Ligation. Denies: Hx Appendectomy, Hx Bowel Surgery, Hx Cholecystectomy, Hx Colostomy, Hx Coronary Artery Bypass Graft, Hx Gastric Bypass Surgery, Hx Herniorrhaphy, Hx Hysterectomy, Hx Mastectomy, Hx Pacemaker, Hx Tonsillectomy - Immunizations Immunizations up to date: Yes Hx Diphtheria, Pertussis, Tetanus Vaccination: Yes Hx Pneumococcal Vaccination: 08/04/00 Review of Systems - Review of Systems Constitutional: No symptoms reported EENT: No symptoms reported Cardiovascular: No symptoms reported Respiratory: No symptoms reported Gastrointestinal: No symptoms reported Genitourinary: No symptoms reported Female Genitourinary: No symptoms reported Musculoskeletal: No symptoms reported Skin: See HPI Hematologic/Lymphatic: No symptoms reported Neurological/Psychological: No symptoms reported Physical Exam - Vital signs Vitals: Temp Pulse Resp BP Pulse Ox 97.9 F 85 16 135/86 H 98 06/08/19 11:15 06/08/19 11:15 06/08/19 11:15 06/08/19 11:15 06/08/19 11:15 Interpretation: Normal - General General appearance: Appears well, Alert - HEENT Head: Normocephalic, Atraumatic Eyes: Normal Pupils: PERRL - Respiratory Respiratory status: No respiratory distress Chest status: Nontender Breath sounds: Normal Chest palpation: Normal - Cardiovascular Rhythm: Regular Heart sounds: Normal auscultation Murmur: No - Abdominal Inspection: Normal Distension: No distension Bowel sounds: Normal Tenderness: Nontender Organomegaly: No organomegaly - Back Back: Normal, Nontender - Extremities General upper extremity: Normal inspection, Nontender, Normal color, Normal ROM, Normal temperature General lower extremity: Normal inspection, Nontender, Normal color, Normal ROM, Normal temperature, Normal weight bearing. No: Bijal's sign - Neurological Neuro grossly intact: Yes Cognition: Normal Orientation: AAOx4 Dane Coma Scale Eye Opening: Spontaneous Dane Coma Scale Verbal: Oriented Flanagan Coma Scale Motor: Obeys Commands Flanagan Coma Scale Total: 15 Speech: Normal Motor strength normal: LUE, RUE, LLE, RLE Sensory: Normal - Psychological Associated symptoms: Normal affect, Normal mood - Skin Skin Temperature: Warm Skin Moisture: Dry Skin Color: Normal Skin irregularity: Abscess - A 3 cm circular area of swelling with palpation central fluctuance with flat eschar noted. No drainage but no lymph nodes. Course - Re-evaluation Re-evalutation: 06/08/19 12:25 33 year-old woman presents to the emergency department history of a very swelling and pain in right occipital scalp region. She states that it is extremely tender and painful and has been there for the past few days. She has had abscesses in the past located in other areas. Denies allergies to medications. s/p incision and drainage procedure. - Vital Signs Vital signs: Temp Pulse Resp BP Pulse Ox 97.9 F 85 16 135/86 H 98 06/08/19 11:15 06/08/19 11:15 06/08/19 11:15 06/08/19 11:15 06/08/19 11:15 Procedures - Incision and Drainage Left Head Type: Simple Anesthetic type: 2% Lidocaine mL's of anesthetic: 3 Blade size: 11 Needle Size: Other - 25 I&D procedure: Betadine prep applied Incision Method: Incision made by scalpel Notes: 06/08/19 12:22 The area was prepped with Betadine and saline, sterile drapes applied to the area, 8-1/2 sterile gloves were used and 2% lidocaine infiltrated. #11 blade, small incision, Osiris clamp used to break adhesions. Approximately 2 as of purulent drainage noted. Culture was obtained and a sterile dressing applied. No packing material used. Discharge - Discharge Clinical Impression: Abscess of scalp Condition: Stable Disposition: HOME, SELF-CARE Instructions: Abscess ([facility]), MRSA Cellulitis ([facility]), Post Incision and Drainage, Trimethoprim-Sulfa ([facility]) Prescriptions: Sulfamethoxazole/Trimethoprim [Bactrim Ds Tablet] 1 tab PO BID #28 tablet Cephalexin Monohydrate [Keflex 500 mg Capsule] 500 mg PO Q8 5 Days capsule Naproxen 500 mg PO BID PRN #14 tablet PRN Reason: Referrals: ASHLEE DUMONT MD [ACTIVE STAFF] - Follow up as needed
[2019-06-08] MEDS ORDERED: LIDOCAINE 2% INJ (20 MG/ML) 20 ML MDV INJ ONE (11:47)
[2019-06-08 13:11] VITALS: BP 110/69
== END 2019-06-08 13:10 | disposition home or self-care (01) ==
LOC: ER 11:11
PROC: 0H90XZZ Drainage of Scalp Skin, External Approach (ICD-10-PCS; principal; 2019-06-08)
DX: L02.811 Cutaneous abscess of head [any part, except face] (principal); R22.0 Localized swelling, mass and lump, head; F17.200 Nicotine dependence, unspecified, uncomplicated; J45.909 Unspecified asthma, uncomplicated; E11.9 Type 2 diabetes mellitus without complications
CPT/HCPCS: 87070; 87205; 87075; 10060; J3490; 87186; 99283

== ENCOUNTER 2019-10-09 11:28 | Observation (INO) | payer MEDICAID ==
--- NOTE | 2019-10-09 11:47 | ER Document Report ---
ED Medical Screen (RME) - General Chief Complaint: Abdominal Pain Stated Complaint: COUGHING/NAUSEA/VOMITING/ABDOMINAL PAIN Time Seen by Provider: 10/09/19 11:41 Mode of Arrival: Ambulatory Information source: Patient Notes: 34-year-old female presented to ED for complaint of abdominal pain across the top of her abdomen x2 weeks she started vomiting last night. She states she has had upper respiratory infection for months but she smokes a pack a day. She denies any fevers. She states is been a couple days since she has had a bowel movement. Last menstrual period was September 23. She is alert and oriented O2 sats 98% pulse is 86. Lungs are clear to auscultation. Heart sounds are hypoactive abdomen is tender bilateral and right pelvic area she does have an ovarian cyst in the right pelvic area I have greeted and performed a rapid initial assessment of this patient. A comprehensive ED assessment and evaluation of the patient, analysis of test results and completion of medical decision making process will be conducted by an additional ED providers. TRAVEL OUTSIDE OF THE [place] IN LAST 30 DAYS: No - Related Data Allergies/Adverse Reactions: clarithromycin [From Biaxin] Allergy (Mild, Verified 10/09/19 11:40) Hives codeine [Codeine] Allergy (Mild, Verified 10/09/19 11:40) Hives meperidine HCl [From Demerol] Allergy (Mild, Verified 10/09/19 11:40) Hives Influenza Virus Vaccines [Influenza Virus Vaccine] Allergy (Verified 10/09/19 11:40) Past Medical History - Past Medical History Cardiac Medical History: Reports: Hx Peripheral Vascular Disease, Hx Heart Murmur Denies: Hx Atrial Fibrillation, Hx Congestive Heart Failure, Hx Coronary Artery Disease, Hx Heart Attack, Hx Hypercholesterolemia, Hx Hypertension, Hx Pulmonary Embolism Pulmonary Medical History: Reports: Hx Asthma Denies: Hx Bronchitis, Hx COPD, Hx Pneumonia, Hx Respiratory Failure, Hx Sleep Apnea, Hx Tuberculosis Neurological Medical History: Reports: Hx Migraine, Hx Seizures. Denies: Hx Cerebrovascular Accident, Hx Parkinson's Disease Endocrine Medical History: Reports: Hx Diabetes Mellitus Type 1, Hx Diabetes Mellitus Type 2, Hx Hypothyroidism. Denies: Hx Graves' Disease, Hx Hyperthyroidism Renal/ Medical History: Denies: Hx End Stage Renal Disease, Hx Kidney Stones, Hx Ovarian Cysts, Hx Peritoneal Dialysis, Hx Pelvic Inflammatory Disease Malignancy Medical History: Denies: Hx Breast Cancer, Hx Cervical Cancer, Hx Leukemia, Hx Lung Cancer, Hx Ovarian Cancer GI Medical History: Reports: Hx Gastroesophageal Reflux Disease, Hx Ulcer. Denies: Hx Crohn's Disease, Hx Hiatal Hernia, Hx Irritable Bowel, Hx Liver Failure, Hx Pancreatitis Musculoskeltal Medical History: Denies Hx Arthritis, Denies Hx Multiple Sclerosis, Denies Hx Systemic Lupus Erythematosus Skin Medical History: Reports Hx Cellulitis Psychiatric Medical History: Reports: Hx Depression Denies: Hx Bipolar Disorder, Hx Dementia, Hx Post Traumatic Stress Disorder, Hx Schizophrenia Infectious Medical History: Denies: Hx HIV Past Surgical History: Reports: Hx Section - x 2, Hx Gynecologic Surgery - D&C, Hx Oral Surgery, Hx Tubal Ligation. Denies: Hx Appendectomy, Hx Bowel Surgery, Hx Cholecystectomy, Hx Colostomy, Hx Coronary Artery Bypass Graft, Hx Gastric Bypass Surgery, Hx Herniorrhaphy, Hx Hysterectomy, Hx Mastectomy, Hx Pacemaker, Hx Tonsillectomy - Immunizations Immunizations up to date: Yes Hx Diphtheria, Pertussis, Tetanus Vaccination: Yes Physical Exam - Vital signs Vitals: Temp Pulse Resp BP Pulse Ox 98.2 F 86 20 114/74 98 10/09/19 11:33 10/09/19 11:33 10/09/19 11:33 10/09/19 11:33 10/09/19 11:33 Course - Vital Signs Vital signs: Temp Pulse Resp BP Pulse Ox 98.2 F 86 20 114/74 98 10/09/19 11:33 10/09/19 11:33 10/09/19 11:33 10/09/19 11:33 10/09/19 11:33
[2019-10-09] MEDS ORDERED: ONDANSETRON 4 MG TAB.RAPDIS PO ONE (11:51)
[2019-10-09 12:31] LABS: ABSOLUTE EOSINOPHILS # (AUTO) 0.1 10^3/uL (0.0-0.6); ABSOLUTE LYMPHOCYTES (AUTO) 1.3 10^3/uL (0.5-4.7); ABSOLUTE MONOCYTES (AUTO) 0.4 10^3/uL (0.1-1.4); ABSOLUTE NEUT (AUTO) 3.7 10^3/uL (1.7-8.2); BASOPHILS % (AUTO) 0.6 % (0-2); EOSINOPHILS % (AUTO) 1.4 % (0-6); HEMATOCRIT 35.3 % (36.0-47.0); HEMOGLOBIN 11.2 g/dL (12.0-15.5); LYMPHOCYTES % (AUTO) 23.7 % (13-45); MEAN CORPUSCULAR HEMOGLOBIN 24.9 pg (27.0-33.4); MEAN CORPUSCULAR HGB CONC 31.9 g/dL (32.0-36.0); MEAN CORPUSCULAR VOLUME 78 fl (80-97); MONOCYTES % (AUTO) 7.9 % (3-13); PLATELET COUNT 258 10^3/uL (150-450); RED BLOOD COUNT 4.52 10^6/uL (3.72-5.28); RED CELL DISTRIBUTION WIDTH 17.3 % (11.5-14.0); SEGMENTED NEUTROPHILS % (AUTO) 66.4 % (42-78); TOTAL CELLS COUNTED % (AUTO) 100 %; VENOUS BLOOD BASE EXCESS -6.4 mmol/L; VENOUS BLOOD HCO3 17.5 mmol/L (20-32); VENOUS BLOOD PCO2 30.6 mmHg (35-63); VENOUS BLOOD PH 7.37 (7.30-7.42); WHITE BLOOD COUNT 5.6 10^3/uL (4.0-10.5)
[2019-10-09 12:41] LABS: ALBUMIN 3.9 g/dL (3.5-5.0); ALKALINE PHOSPHATASE 111 U/L (38-126); ANION GAP 11 (5-19); ASPARTATE AMINO TRANSFERASE 22 U/L (14-36); BILIRUBIN,TOTAL 0.2 mg/dL (0.2-1.3); BLOOD UREA NITROGEN 11 mg/dL (7-20); CALCIUM 8.6 mg/dL (8.4-10.2); CARBON DIOXIDE 17 mmol/L (22-30); CHLORIDE 107 mmol/L (98-107); GLUCOSE 381 mg/dL (75-110); POTASSIUM 4.6 mmol/L (3.6-5.0)
--- NOTE | 2019-10-09 12:43 | RADIOLOGY REPORT (SQ) ---
EXAM DESCRIPTION: ACUTE ABDOMEN SERIES COMPLETED DATE/TIME: 10/09/2019 11:18 am REASON FOR STUDY: Abdominal pain no BM in 2 to 3 days dm COMPARISON: Chest radiograph, 04/17/2019. CT abdomen and pelvis 06/12/2018. NUMBER OF VIEWS: Three views. TECHNIQUE: Frontal chest, supine abdomen and upright/decubitus abdomen radiographic images acquired. LIMITATIONS: None. FINDINGS: CHEST: Lungs clear of infiltrates. FREE AIR: None. No abnormal gas collections. BOWEL GAS PATTERN: Moderate amount of stool throughout the colon. Nonobstructive pattern. No dilated loops or air fluid levels. CALCIFICATIONS: No suspicious calcifications. HARDWARE: None in the abdomen. SOFT TISSUES: No gross mass or suggestion of organomegaly. BONES: No acute fracture. No worrisome bone lesions. OTHER: No other significant finding. IMPRESSION: Moderate amount of stool in the colon which can be seen with constipation. No acute car diopulmonary disease. Nonobstructive bowel gas pattern. TECHNICAL DOCUMENTATION: JOB ID: [id number] 2010 [employer] All Rights Reserved Reading location - IP/workstation name: [email or web address]
[2019-10-09] MEDS ORDERED: NORMAL SALINE 1000 ML 1,000 ML IV ONE ×3 (12:44→14:33)
[2019-10-09] MEDS ORDERED: MORPHINE SULFATE 10 MG/ML INJ IV ONE ×2 (13:32→16:27)
[2019-10-09] MEDS ORDERED: INSULIN REG, HUMAN 100 UNIT/ML 3 ML VIAL (PYX) SUBCUT ONE ×2 (13:33→14:35)
--- NOTE | 2019-10-09 13:35 | ER Document Report ---
ED GI/ - General Chief Complaint: Abdominal Pain Stated Complaint: COUGHING/NAUSEA/VOMITING/ABDOMINAL PAIN Time Seen by Provider: 10/09/19 13:22 Primary Care Provider: JULIET ALEJO DO [Primary Care Provider] - Follow up as needed Mode of Arrival: Ambulatory Information source: Patient Notes: Patient presents complaining of upper abdominal pain for the past 2 weeks. Patient states she had nausea and vomiting since yesterday. Patient states she is vomited 3 times today. Patient denies any urinary symptoms or diarrhea. Patient states she has had a cough for the past month. No fever. TRAVEL OUTSIDE OF THE [place] IN LAST 30 DAYS: No - HPI Patient complains to provider of: Abdominal pain, Vomiting Onset: Other - 2 weeks Timing/Duration: Worse Quality of pain: Sharp Pain Level: 5 Location: Epigastric, LUQ, RUQ Associated symptoms: Nausea, Vomiting. denies: Constipation, Diarrhea, Dysuria, Fever, Odor, Urinary hesitancy, Urinary frequency, Urinary retention, Urinary urgency Exacerbated by: Denies Relieved by: Denies Similar symptoms previously: No - Related Data Allergies/Adverse Reactions: clarithromycin [From Biaxin] Allergy (Mild, Verified 10/09/19 11:40) Hives codeine [Codeine] Allergy (Mild, Verified 10/09/19 11:40) Hives meperidine HCl [From Demerol] Allergy (Mild, Verified 10/09/19 11:40) Hives Influenza Virus Vaccines [Influenza Virus Vaccine] Allergy (Verified 10/09/19 11:40) Past Medical History - General Information source: Patient - Social History Smoking Status: Current Every Day Smoker Frequency of alcohol use: None Drug Abuse: None Occupation: [employer] Family History: Reviewed & Not Pertinent, CAD, COPD, DM, Hyperlipidemia, Hypertension, Malignancy, Thyroid Disfunction, Other - Liver disease Patient has suicidal ideation: No Patient has homicidal ideation: No - Past Medical History Cardiac Medical History: Reports: Hx Peripheral Vascular Disease, Hx Heart Murmur Pulmonary Medical History: Reports: Hx Asthma Neurological Medical History: Reports: Hx Migraine, Hx Seizures Endocrine Medical History: Reports: Hx Diabetes Mellitus Type 1, Hx Hypothyroidism GI Medical History: Reports: Hx Gastroesophageal Reflux Disease, Hx Ulcer Skin Medical History: Reports Hx Cellulitis Psychiatric Medical History: Reports: Hx Depression Infectious Medical History: Denies: Hx HIV Past Surgical History: Reports: Hx Section - x 2, Hx Gynecologic Surgery - D&C, Hx Oral Surgery, Hx Tubal Ligation - Immunizations Immunizations up to date: Yes Hx Diphtheria, Pertussis, Tetanus Vaccination: Yes Hx Pneumococcal Vaccination: 08/04/00 Review of Systems - Review of Systems Constitutional: No symptoms reported. denies: Fever, Recent illness EENT: No symptoms reported Cardiovascular: No symptoms reported. denies: Chest pain Respiratory: Cough. denies: Short of breath Gastrointestinal: Abdominal pain, Nausea, Vomiting. denies: Diarrhea Genitourinary: Flank pain. denies: Dysuria Female Genitourinary: No symptoms reported. denies: Vaginal discharge, Vaginal bleeding Musculoskeletal: Back pain Skin: No symptoms reported Hematologic/Lymphatic: No symptoms reported Neurological/Psychological: No symptoms reported Physical Exam - Vital signs Vitals: Temp Pulse Resp BP Pulse Ox 98.2 F 86 20 114/74 98 10/09/19 11:33 10/09/19 11:33 10/09/19 11:33 10/09/19 11:33 10/09/19 11:33 - General General appearance: Anxious In distress: Mild Notes: Patient with exaggerated pain response with very light minimal palpation - HEENT Head: Normocephalic, Atraumatic Eyes: Normal Conjunctiva: Normal Nasal: Normal Mouth/Lips: Normal Mucous membranes: Normal Neck: Normal, Supple. No: Lymphadenopathy - Respiratory Respiratory status: No respiratory distress Chest status: Pain with cough Breath sounds: Nonproductive cough Chest palpation: Normal - Cardiovascular Rhythm: Other Heart sounds: S1 appreciated, S2 appreciated - Abdominal Inspection: Normal Distension: No distension Bowel sounds: Normal Tenderness: Tender - upper abd tenderness, Guarding Organomegaly: No organomegaly - Back Back: CVA tenderness - Extremities General upper extremity: Normal inspection, Normal strength General lower extremity: Normal inspection, Normal strength - Neurological Neuro grossly intact: Yes Cognition: Normal Dane Coma Scale Eye Opening: Spontaneous Reynolds Coma Scale Verbal: Oriented Reynolds Coma Scale Motor: Obeys Commands Reynolds Coma Scale Total: 15 - Psychological Associated symptoms: Anxious, Tearful - Skin Skin Temperature: Warm Skin Moisture: Dry Skin Color: Normal Course - Re-evaluation Re-evalutation: 10/09/19 15:28 Patient complains of return of upper abdominal pain symptoms. Additional medication ordered at this time. 10/09/19 16:25 Dr. Garcia consulted, Dr. Garcia to bedside for examination. Advises giving additional IV fluids as well as obtaining CT scan of abdomen and pelvis. 10/09/19 19:[address] Garcia who recommends consultation with Dr. Jewell given patient's CT and ultrasound findings. Dr. Jewell reviewed patient's images and does not feel that patient has intrahepatic dilatation although he does have concerns about sludge within the gallbladder. Recommends admitting patient to the surgical services. - Vital Signs Vital signs: Temp Pulse Resp BP Pulse Ox 97.2 F 69 18 118/81 98 10/09/19 16:07 10/09/19 16:07 10/09/19 16:07 10/09/19 16:07 10/09/19 16:07 - Laboratory Result Diagrams: 10/09/19 12:00 10/09/19 12:00 Laboratory results interpreted by me: 10/09/19 10/09/19 10/09/19 12:00 12:00 12:00 Hgb 11.2 L Hct 35.3 L MCV 78 L MCH 24.9 L MCHC 31.9 L RDW 17.3 H VBG pCO2 30.6 L VBG HCO3 17.5 L Sodium 134.6 L Carbon Dioxide 17 L Glucose 381 H POC Glucose Urine Protein Urine Glucose (UA) Urine Ketones 10/09/19 10/09/19 10/09/19 12:37 13:05 14:30 Hgb Hct MCV MCH MCHC RDW VBG pCO2 VBG HCO3 Sodium Carbon Dioxide Glucose POC Glucose 351 H 202 H Urine Protein 30 H Urine Glucose (UA) >=500 H Urine Ketones 20 H 10/09/19 10/09/19 15:28 17:54 Hgb Hct MCV MCH MCHC RDW VBG pCO2 VBG HCO3 Sodium Carbon Dioxide Glucose POC Glucose 148 H 60 L Urine Protein Urine Glucose (UA) Urine Ketones 10/09/19 19:25 Labs- Entire Visit 10/09/19 10/09/19 10/09/19 12:00 12:00 12:00 WBC 5.6 RBC 4.52 Hgb 11.2 L Hct 35.3 L MCV 78 L MCH 24.9 L MCHC 31.9 L RDW 17.3 H Plt Count 258 Lymph % (Auto) 23.7 Maries % (Auto) 7.9 Eos % (Auto) 1.4 Baso % (Auto) 0.6 Absolute Neuts (auto) 3.7 Absolute Lymphs (auto) 1.3 Absolute Monos (auto) 0.4 Absolute Eos (auto) 0.1 Absolute Basos (auto) 0.0 Seg Neutrophils % 66.4 VBG pH VBG pCO2 VBG HCO3 VBG Base Excess Sodium 134.6 L Potassium 4.6 Chloride 107 Carbon Dioxide 17 L Anion Gap 11 BUN 11 Creatinine 0.61 Est GFR ( Amer) > 60 Est GFR (MDRD) Non-Af > 60 Glucose 381 H POC Glucose Calcium 8.6 Total Bilirubin 0.2 Direct Bilirubin 0.0 Neonat Total Bilirubin Not Reportable Neonat Direct Bilirubin Not Reportable Neonat Indirect Bili Not Reportable AST 22 ALT 20 Alkaline Phosphatase 111 Total Protein 7.0 Albumin 3.9 Lipase Serum HCG, Qual NEGATIVE Urine Color Urine Appearance Urine pH Ur Specific [place] Urine Protein Urine Glucose (UA) Urine Ketones Urine Blood Urine Nitrite (Reflex) Urine Bilirubin Urine Urobilinogen Leukocyte Esterase Rfl Urine RBC (Auto) Urine WBC (Reflex) Squamous Epi Cells Auto Urine Mucus (Auto) Urine Ascorbic Acid Urine Opiates Screen Urine Methadone Screen Ur Barbiturates Screen Ur Phencyclidine Scrn Ur Amphetamines Screen U Benzodiazepines Scrn Urine Cocaine Screen U Marijuana (THC) Screen Influenza A (Rapid) Influenza B (Rapid) 10/09/19 10/09/19 10/09/19 12:00 12:00 12:37 WBC RBC Hgb Hct MCV MCH MCHC RDW Plt Count Lymph % (Auto) Maries % (Auto) Eos % (Auto) Baso % (Auto) Absolute Neuts (auto) Absolute Lymphs (auto) Absolute Monos (auto) Absolute Eos (auto) Absolute Basos (auto) Seg Neutrophils % VBG pH 7.37 VBG pCO2 30.6 L VBG HCO3 17.5 L VBG Base Excess -6.4 Sodium Potassium Chloride Carbon Dioxide Anion Gap BUN Creatinine Est GFR ( Amer) Est GFR (MDRD) Non-Af Glucose POC Glucose 351 H Calcium Total Bilirubin Direct Bilirubin Neonat Total Bilirubin Neonat Direct Bilirubin Neonat Indirect Bili AST ALT Alkaline Phosphatase Total Protein Albumin Lipase 143.5 Serum HCG, Qual Urine Color Urine Appearance Urine pH Ur Specific [place] Urine Protein Urine Glucose (UA) Urine Ketones Urine Blood Urine Nitrite (Reflex) Urine Bilirubin Urine Urobilinogen Leukocyte Esterase Rfl Urine RBC (Auto) Urine WBC (Reflex) Squamous Epi Cells Auto Urine Mucus (Auto) Urine Ascorbic Acid Urine Opiates Screen Urine Methadone Screen Ur Barbiturates Screen Ur Phencyclidine Scrn Ur Amphetamines Screen U Benzodiazepines Scrn Urine Cocaine Screen U Marijuana (THC) Screen Influenza A (Rapid) Influenza B (Rapid) 10/09/19 10/09/19 10/09/19 13:05 13:05 14:30 WBC RBC Hgb Hct MCV MCH MCHC RDW Plt Count Lymph % (Auto) Maries % (Auto) Eos % (Auto) Baso % (Auto) Absolute Neuts (auto) Absolute Lymphs (auto) Absolute Monos (auto) Absolute Eos (auto) Absolute Basos (auto) Seg Neutrophils % VBG pH VBG pCO2 VBG HCO3 VBG Base Excess Sodium Potassium Chloride Carbon Dioxide Anion Gap BUN Creatinine Est GFR ( Amer) Est GFR (MDRD) Non-Af Glucose POC Glucose 202 H Calcium Total Bilirubin Direct Bilirubin Neonat Total Bilirubin Neonat Direct Bilirubin Neonat Indirect Bili AST ALT Alkaline Phosphatase Total Protein Albumin Lipase Serum HCG, Qual Urine Color YELLOW Urine Appearance CLEAR Urine pH 5.0 Ur Specific [place] 1.037 Urine Protein 30 H Urine Glucose (UA) >=500 H Urine Ketones 20 H Urine Blood NEGATIVE Urine Nitrite (Reflex) NEGATIVE Urine Bilirubin NEGATIVE Urine Urobilinogen NEGATIVE Leukocyte Esterase Rfl NEGATIVE Urine RBC (Auto) 2 Urine WBC (Reflex) 1 Squamous Epi Cells Auto <1 Urine Mucus (Auto) RARE Urine Ascorbic Acid NEGATIVE Urine Opiates Screen NEGATIVE Urine Methadone Screen NEGATIVE Ur Barbiturates Screen NEGATIVE Ur Phencyclidine Scrn NEGATIVE Ur Amphetamines Screen NEGATIVE U Benzodiazepines Scrn NEGATIVE Urine Cocaine Screen NEGATIVE U Marijuana (THC) Screen NEGATIVE Influenza A (Rapid) Influenza B (Rapid) 10/09/19 10/09/19 10/09/19 15:28 16:44 17:54 WBC RBC Hgb Hct MCV MCH MCHC RDW Plt Count Lymph % (Auto) Maries % (Auto) Eos % (Auto) Baso % (Auto) Absolute Neuts (auto) Absolute Lymphs (auto) Absolute Monos (auto) Absolute Eos (auto) Absolute Basos (auto) Seg Neutrophils % VBG pH VBG pCO2 VBG HCO3 VBG Base Excess Sodium Potassium Chloride Carbon Dioxide Anion Gap BUN Creatinine Est GFR ( Amer) Est GFR (MDRD) Non-Af Glucose POC Glucose 148 H 60 L Calcium Total Bilirubin Direct Bilirubin Neonat Total Bilirubin Neonat Direct Bilirubin Neonat Indirect Bili AST ALT Alkaline Phosphatase Total Protein Albumin Lipase Serum HCG, Qual Urine Color Urine Appearance Urine pH Ur Specific [place] Urine Protein Urine Glucose (UA) Urine Ketones Urine Blood Urine Nitrite (Reflex) Urine Bilirubin Urine Urobilinogen Leukocyte Esterase Rfl Urine RBC (Auto) Urine WBC (Reflex) Squamous Epi Cells Auto Urine Mucus (Auto) Urine Ascorbic Acid Urine Opiates Screen Urine Methadone Screen Ur Barbiturates Screen Ur Phencyclidine Scrn Ur Amphetamines Screen U Benzodiazepines Scrn Urine Cocaine Screen U Marijuana (THC) Screen Influenza A (Rapid) NEGATIVE Influenza B (Rapid) NEGATIVE - Diagnostic Test Radiology reviewed: Reports reviewed Discharge - Discharge Clinical Impression: Dehydration Nausea and vomiting Qualifiers: Vomiting type: unspecified Vomiting Intractability: non-intractable Qualified Code(s): R11.2 - Nausea with vomiting, unspecified Abdominal pain Qualifiers: Abdominal location: right upper quadrant Qualified Code(s): R10.11 - Right upper quadrant pain Diabetes Qualifiers: Diabetes mellitus type: type 1 Diabetes mellitus complication status: with hyperglycemia Qualified Code(s): E10.65 - Type 1 diabetes mellitus with hyperglycemia Condition: Stable Disposition: ADMITTED INPATIENT Admitting Provider: Surgicalist Unit Admitted: Surgical Floor Referrals: JULIET ALEJO DO [Primary Care Provider] - Follow up as needed
[2019-10-09 13:47] LABS: APPEARANCE,URINE CLEAR; BILIRUBIN,URINE NEGATIVE (NEGATIVE); COLOR,URINE YELLOW; GLUCOSE, URINE >=500 mg/dL (NEGATIVE); KETONES,URINE 20 mg/dL (NEGATIVE); PROTEIN,URINE 30 mg/dL (NEGATIVE); URINE SPECIFIC GRAVITY 1.037; UROBILINOGEN,URINE NEGATIVE mg/dL (<2.0)
--- NOTE | 2019-10-09 15:00 | RADIOLOGY REPORT (SQ) ---
EXAM DESCRIPTION: U/S ABDOMEN LIMITED W/O DOP COMPLETED DATE/TIME: 10/09/2019 2:27 pm REASON FOR STUDY: upper abd pain COMPARISON: None. TECHNIQUE: Dynamic and static grayscale images acquired of the abdomen and recorded on PACS. Additio nal selected color Doppler and spectral images recorded. LIMITATIONS: None. FINDINGS: PANCREAS: No masses. Visualized pancreatic duct normal caliber. LIVER: Enlarged. Fatty infiltration. LIVER VASCULATURE: Normal directional flow of the main portal vein and hepatic veins. GALLBLADDER: Enlarged. No stones. No pericholecystic fluid. ULTRASOUND-DETECTED WAY'S SIGN: Negative. INTRAHEPATIC DUCTS AND COMMON DUCT: CBD and intrahepatic ducts normal caliber. No filling defects. INFERIOR VENA CAVA: Normal flow. AORTA: No aneurysm. RIGHT KIDNEY: Normal size. Normal echogenicity. No solid or suspicious masses. No hydronephrosis. No calcifications. PERITONEAL AND RIGHT PLEURAL SPACE: No ascites or effusions. OTHER: No other significant findings. IMPRESSION: Enlarged fatty liver. Mildly distended gallbladder. COMMENT: None TECHNICAL DOCUMENTATION: JOB ID: [id number] [email or web address]- All Rights Reserved Reading location - IP/workstation name: [email or web address]
[2019-10-09 15:10] LABS: URINE AMPHETAMINES SCREEN NEGATIVE; URINE BARBITURATES SCREEN NEGATIVE; URINE BENZODIAZEPINES SCREEN NEGATIVE; URINE COCAINE SCREEN NEGATIVE; URINE MARIJUANA (THC) SCREEN NEGATIVE; URINE METHADONE SCREEN NEGATIVE; URINE PHENCYCLIDINE SCREEN NEGATIVE
[2019-10-09] MEDS ORDERED: LIDOCAINE 2% VISCOUS SOLN 15 ML UDCUP PO ONE (15:25)
[2019-10-09] MEDS ORDERED: MAG HYDROX/AL HYDROX/SIMETH SUSP 30 ML UDCUP PO ONE (15:25)
[2019-10-09 17:31] LABS: A TYPE INFLUENZA AG NEGATIVE (NEGATIVE); B INFLUENZA AG NEGATIVE (NEGATIVE)
[2019-10-09] MEDS ORDERED: DEXTROSE 5%-NORMAL SALINE 1,000 ML IV ONE (17:57)
--- NOTE | 2019-10-09 19:03 | RADIOLOGY REPORT (SQ) ---
EXAM DESCRIPTION: CT ABD/PELVIS WITH IV ORAL COMPLETED DATE/TIME: 10/09/2019 6:30 pm REASON FOR STUDY: upper abd pain, n/v COMPARISON: 06/12/2018 TECHNIQUE: CT scan of the abdomen and pelvis performed using helical scanning technique with dynamic intravenous contrast injection. No oral contrast. Images reviewed with lung, soft tissue, and bone w indows. Reconstructed coronal and sagittal MPR images reviewed. Delayed images for evaluation of the urinary system also acquired. All images stored on PACS. All CT scanners at this facility use dose modulation, iterative reconstruction, and/or weight based d osing when appropriate to reduce radiation dose to as low as reasonably achievable (ALARA). [facility]: Dose Right [facility]: CareDose [facility]: Dose Right [facility]: Teradose 4D [facility]: [employer] CONTRAST TYPE AND DOSE: contrast/concentration: Isovue 350.00 mg/ml; Total Contrast Delivered: 64.0 ml; Total Saline Delivered: 65.0 ml RENAL FUNCTION: None required. The patient is less than 50 years old. RADIATION DOSE: CT Rad equipment meets quality standard of care and radiation dose reduction techniq ues were employed. CTDIvol: 5.6 - 7.5 mGy. DLP: 735 mGy-cm.. LIMITATIONS: None. FINDINGS: LOWER CHEST: No significant findings. LIVER: Normal size. No enhancing masses. Minimally dilated intrahepatic bile ducts. SPLEEN: Normal size. No focal lesions. PANCREAS: No masses identified. No significant calcifications. No adjacent inflammation or peripancre atic fluid collections. Pancreatic duct not dilated. GALLBLADDER: No calcified stones. No inflammatory changes to suggest cholecystitis. ADRENAL GLANDS: No significant masses. RIGHT KIDNEY AND URETER: No cysts identified. No solid masses identified. No calcified stones. No hyd ronephrosis or hydroureter. LEFT KIDNEY AND URETER: No cysts identified. No solid masses identified. No calcified stones. No hydr onephrosis or hydroureter. AORTA AND VESSELS: No aneurysm. No dissection. Renal arteries, SMA, celiac without significant stenos is. RETROPERITONEUM: No bulky retroperitoneal adenopathy. BOWEL AND PERITONEAL CAVITY: No obstruction or inflammatory changes. No free fluid. APPENDIX: Normal. PELVIS: 3.5 cm right ovarian cyst. Small amount of pelvic free fluid. Unremarkable bladder. ABDOMINAL WALL: No masses. No hernias. BONES: No acute findings. OTHER: No other significant finding. IMPRESSION: Minimally dilated intrahepatic bile ducts. No calcified stones. Common bile duct is no rmal caliber. 3.5 cm right ovarian cyst. Small amount of pelvic free fluid. TECHNICAL DOCUMENTATION: JOB ID: [id number] [id number] Quality ID # [id number]: Final reports with documentation of one or more dose reduction techniques (e.g., Au tomated exposure control, adjustment of the mA and/or kV according to patient size, use of iterative reconstruction technique) 2010 [employer]- All Rights Reserved Reading location - IP/workstation name: [email or web address]
[2019-10-09] MEDS ORDERED: NORMAL SALINE 1000 ML 1,000 ML IV PRN (19:22)
[2019-10-09] MEDS ORDERED: ONDANSETRON HCL INJ/PF 4 MG/2 ML SDV IV PRN (19:22)
[2019-10-09] MEDS: KETOROLAC TROMETHAMINE INJ/PF 30 MG/1 ML SDV IV SCH (21:27)
[2019-10-09] MEDS: FAMOTIDINE INJ/PF 20 MG/2 ML SDV IV SCH (21:53)
[2019-10-09] MEDS: MORPHINE SULFATE 10 MG/ML INJ IV PRN (22:53)
[2019-10-09] MEDS ORDERED: DEXTROSE 50%-WATER SYRINGE 12.5 GM/25 ML DOSE IV PRN (23:30)
[2019-10-09] MEDS ORDERED: DEXTROSE 40% GEL 15 GM TUBE X 2 PO PRN (23:30)
[2019-10-09] MEDS ORDERED: DEXTROSE 40% GEL 15 GM TUBE PO PRN (23:30)
[2019-10-09] MEDS ORDERED: DEXTROSE 50%-WATER SYRINGE 25 GM/50 ML DOSE IV PRN (23:30)
[2019-10-09] MEDS ORDERED: GLUCAGON,HUMAN RECOMB 1 MG INJ IM PRN (23:30)
[2019-10-10] MEDS ORDERED: ROPINIROLE HCL 0.25 MG TABLET PO ONE (00:30)
[2019-10-10] MEDS ORDERED: GABAPENTIN 400 MG CAPSULE PO ONE (00:30)
[2019-10-10] MEDS: MORPHINE SULFATE 10 MG/ML INJ IV PRN ×4 (05:04→23:23)
[2019-10-10] MEDS: KETOROLAC TROMETHAMINE INJ/PF 30 MG/1 ML SDV IV SCH ×3 (05:06→22:51)
[2019-10-10] MEDS: LEVOTHYROXINE SODIUM 0.05 MG TABLET PO SCH (05:06)
[2019-10-10 05:19] LABS: ABSOLUTE EOSINOPHILS # (AUTO) 0.1 10^3/uL (0.0-0.6); ABSOLUTE LYMPHOCYTES (AUTO) 1.9 10^3/uL (0.5-4.7); ABSOLUTE MONOCYTES (AUTO) 0.6 10^3/uL (0.1-1.4); ABSOLUTE NEUT (AUTO) 2.7 10^3/uL (1.7-8.2); BASOPHILS % (AUTO) 0.7 % (0-2); EOSINOPHILS % (AUTO) 1.8 % (0-6); HEMATOCRIT 30.5 % (36.0-47.0); HEMOGLOBIN 9.8 g/dL (12.0-15.5); LYMPHOCYTES % (AUTO) 35.9 % (13-45); MEAN CORPUSCULAR HEMOGLOBIN 25.1 pg (27.0-33.4); MEAN CORPUSCULAR HGB CONC 32.2 g/dL (32.0-36.0); MEAN CORPUSCULAR VOLUME 78 fl (80-97); PLATELET COUNT 210 10^3/uL (150-450); RED BLOOD COUNT 3.91 10^6/uL (3.72-5.28); RED CELL DISTRIBUTION WIDTH 17.5 % (11.5-14.0); SEGMENTED NEUTROPHILS % (AUTO) 50.6 % (42-78); TOTAL CELLS COUNTED % (AUTO) 100 %; WHITE BLOOD COUNT 5.4 10^3/uL (4.0-10.5)
[2019-10-10 05:39] LABS: ALKALINE PHOSPHATASE 86 U/L (38-126); ANION GAP 5 (5-19); ASPARTATE AMINO TRANSFERASE 25 U/L (14-36); BLOOD UREA NITROGEN 10 mg/dL (7-20); CALCIUM 7.7 mg/dL (8.4-10.2); CARBON DIOXIDE 21 mmol/L (22-30); CHLORIDE 113 mmol/L (98-107); TOTAL PROTEIN 5.6 g/dL (6.3-8.2)
[2019-10-10 05:45] LABS: BILIRUBIN,TOTAL < 0.1 mg/dL (0.2-1.3)
[2019-10-10 05:51] LABS: NEONATAL BILIRUBIN RESULT 0.2 mg/dL (0.1-1.1)
[2019-10-10 05:57] LABS: POTASSIUM 3.4 mmol/L (3.6-5.0)
[2019-10-10 06:03] LABS: GLUCOSE 31 mg/dL (75-110)
--- NOTE | 2019-10-10 07:45 | PDOC H&P ---
History of Present Illness Admission Date/PCP: JULIET ALEJO DO Patient complains of: RUQ pain, nausea, vomiting History of Present Illness: CHRISTIANO ST is a 34 year old female with a 2-day history of right upper quadrant pain that radiates around to the back. She reports that yesterday she ate [employer] breakfast, and shortly thereafter began having gnawing right upper quadrant pain. The pain progressed significantly over the next several hours. Her pain was sharp, stabbing, constant, unrelenting, and she presented to the emergency department for work-up. Her pain radiates around to her back and right scapula. She does report associated nausea and vomiting. She denies melena, hematochezia, hematemesis, headache, blurry vision, dizziness, orth ostasis, fatigue, malaise, fevers, chills, chest pain, shortness of breath. She denies excessive NSAID use or alcohol consumption. She does not take steroids. She does report smoking every day. Past Medical History Cardiac Medical History: Reports: Peripheral Vascular Disease, Heart Murmur Denies: Atrial Fibrillation, Congestive Heart Failure, Coronary Artery Disease, Myocardial Infarction, Hyperlipidema, Hypertension, Pulmonary Embolism Pulmonary Medical History: Reports: Asthma Denies: Bronchitis, Chronic Obstructive Pulmonary Disease (COPD), Pneumonia, Respiratory Failure, Sleep Apnea, Tuberculosis Neurological Medical History: Reports: Migraine, Seizures Endocrine Medical History: Reports: Diabetes Mellitus Type 1, Diabetes Mellitus Type 2, Hypothyroidism Denies: Hyperthyroidism Renal/ Medical History: Denies: End Stage Renal Disease Malignancy Medical History: Denies: Breast Cancer, Cervical Cancer, Leukemia, Lung Cancer, Ovarian Cancer GI Medical History: Reports: Gastroesophageal Reflux Disease Denies: Crohn's Disease, Hiatal Hernia Musculoskeltal Medical History: Denies: Arthritis Psychiatric Medical History: Reports: Depression Denies: Bipolar Disorder, Dementia, Post Traumatic Stress Disorder Hematology: Denies: Anemia, Hemophilia, Sickle Cell Disease Infectious Medical History: Denies: HIV Past Surgical History Past Surgical History: Reports: Section - x 2, Tubal Ligation Denies: Appendectomy, Cholecystectomy, Colostomy, Coronary Artery Bypass Graft, Gastric Bypass Surgery, Herniorrhaphy, Hysterectomy, Mastectomy, Pacemaker, Tonsillectomy Social History Smoking Status: Current Every Day Smoker Frequency of Alcohol Use: None Hx Recreational Drug Use: No Drugs: None Hx Prescription Drug Abuse: No Family History Family History: Reviewed & Not Pertinent, CAD, COPD, DM, Hyperlipidemia, Hypertension, Malignancy, Thyroid Disfunction, Other - Liver disease Parental Family History Reviewed: Yes Children Family History Reviewed: Yes Sibling(s) Family History Reviewed.: Yes Medication/Allergy Home Medications: Gabapentin [Neurontin 400 mg Capsule] 800 mg PO Q8 06/12/18 Insulin Aspart [Novolog Insulin (Aspart) 100 unit/mL] 0 unit SUBCUT .SLD SCALE 04/17/19 Insulin Detemir [Levemir] 35 unit SQ BID 04/17/19 Levothyroxine Sodium [Synthroid] 125 mcg PO Q6AM 04/17/19 Ropinirole HCl [Requip 0.25 mg Tablet] 0.25 mg PO QHS 04/17/19 Budesonide/Formoterol Fumarate [Symbicort Hfa 160-4.5 Mcg Inhaler 6 gm] 1 puff IH Q12 30 Days #1 inhaler 04/19/19 Allergies/Adverse Reactions: clarithromycin [From Biaxin] Allergy (Mild, Verified 10/09/19 11:40) Hives codeine [Codeine] Allergy (Mild, Verified 10/09/19 11:40) Hives meperidine HCl [From Demerol] Allergy (Mild, Verified 10/09/19 11:40) Hives Influenza Virus Vaccines [Influenza Virus Vaccine] Allergy (Verified 10/09/19 11:40) Review of Systems Constitutional: ABSENT: anorexia, chills, fatigue, fever(s), headache(s), weakness Eyes: ABSENT: visual disturbances Ears: ABSENT: hearing changes Nose, Mouth, and Throat: ABSENT: mouth pain, sore throat Cardiovascular: ABSENT: chest pain Respiratory: ABSENT: cough, dyspnea Gastrointestinal: PRESENT: abdominal pain, nausea, vomiting. ABSENT: hematemesis, hematochezia, melena Genitourinary: ABSENT: dysuria Musculoskeletal: ABSENT: back pain Neurological: ABSENT: confusion, convulsions, dizziness Psychiatric: ABSENT: anxiety, hallucinations Endocrine: ABSENT: cold intolerance, heat intolerance Hematologic/Lymphatic: ABSENT: easy bleeding, easy bruising Physical Exam Vital Signs: Temp Pulse Resp BP Pulse Ox 97.2 F 69 18 118/81 98 10/09/19 16:07 10/09/19 16:07 10/09/19 16:07 10/09/19 16:07 10/09/19 16:07 Intake & Output 10/08/19 10/09/19 10/10/19 06:59 06:59 07:59 Intake Total 2838 Balance 2838 Weight 59.2 kg General appearance: PRESENT: no acute distress, cooperative Head exam: PRESENT: atraumatic, normocephalic Eye exam: PRESENT: EOMI, PERRLA. ABSENT: scleral icterus Mouth exam: PRESENT: moist, neck supple Neck exam: ABSENT: meningismus, tenderness, thyromegaly, tracheal deviation Respiratory exam: PRESENT: clear to auscultation boubacar, unlabored. ABSENT: chest wall tenderness, wheezes Cardiovascular exam: PRESENT: RRR Pulses: PRESENT: normal radial pulses Vascular exam: PRESENT: normal capillary refill. ABSENT: pallor GI/Abdominal exam: PRESENT: soft, tenderness - Right upper quadrant. ABSENT: distended, firm, guarding Rectal exam: PRESENT: deferred Extremities exam: ABSENT: clubbing Musculoskeletal exam: ABSENT: deformity Neurological exam: PRESENT: alert, awake, oriented to person, oriented to place, oriented to time, oriented to situation, CN II-XII grossly intact. ABSENT: motor sensory deficit Psychiatric exam: ABSENT: agitated, anxious, depressed Focused psych exam: ABSENT: delusional Skin exam: ABSENT: cyanosis, erythema, jaundice Results Laboratory Results: 10/09/19 12:00 10/09/19 12:00 10/09/19 10/09/19 10/09/19 12:00 12:00 12:00 WBC 5.6 RBC 4.52 Hgb 11.2 L Hct 35.3 L MCV 78 L MCH 24.9 L MCHC 31.9 L RDW 17.3 H Plt Count 258 Seg Neutrophils % 66.4 VBG pH VBG pCO2 VBG HCO3 VBG Base Excess Sodium 134.6 L Potassium 4.6 Chloride 107 Carbon Dioxide 17 L Anion Gap 11 BUN 11 Creatinine 0.61 Est GFR ( Amer) > 60 Glucose 381 H Calcium 8.6 Total Bilirubin 0.2 AST 22 Alkaline Phosphatase 111 Total Protein 7.0 Albumin 3.9 Lipase Serum HCG, Qual NEGATIVE Urine Color Urine Appearance Urine pH Ur Specific [place] Urine Protein Urine Glucose (UA) Urine Ketones Urine Blood Urine RBC (Auto) 10/09/19 10/09/19 10/09/19 12:00 12:00 13:05 WBC RBC Hgb Hct MCV MCH MCHC RDW Plt Count Seg Neutrophils % VBG pH 7.37 VBG pCO2 30.6 L VBG HCO3 17.5 L VBG Base Excess -6.4 Sodium Potassium Chloride Carbon Dioxide Anion Gap BUN Creatinine Est GFR ( Amer) Glucose Calcium Total Bilirubin AST Alkaline Phosphatase Total Protein Albumin Lipase 143.5 Serum HCG, Qual Urine Color YELLOW Urine Appearance CLEAR Urine pH 5.0 Ur Specific [place] 1.037 Urine Protein 30 H Urine Glucose (UA) >=500 H Urine Ketones 20 H Urine Blood NEGATIVE Urine RBC (Auto) 2 Impressions: Abdomen/Pelvis CT 10/09/19 00:00 IMPRESSION: Minimally dilated intrahepatic bile ducts. No calcified stones. Common bile duct is normal caliber. 3.5 cm right ovarian cyst. Small amount of pelvic free fluid. Acute Abdomen Series 10/09/19 11:50 IMPRESSION: Moderate amount of stool in the colon which can be seen with constipation. No acute cardiopulmonary disease. Nonobstructive bowel gas pattern. Abdomen Ultrasound 10/09/19 13:32 IMPRESSION: Enlarged fatty liver. Mildly distended gallbladder. Assessment & Plan - Diagnosis (1) Gallbladder sludge Is this a current diagnosis for this admission?: Yes (2) Nausea and vomiting Qualifiers: Vomiting type: unspecified Vomiting Intractability: non-intractable Qualified Code(s): R11.2 - Nausea with vomiting, unspecified Is this a current diagnosis for this admission?: Yes - Plan Summary Plan Summary: This is a 34-year-old female with acute onset of right upper quadrant pain, nausea, and vomiting after eating [employer]. She was evaluated in the emergency department. Her ultrasound (which I have personally reviewed) shows a distended gallbladder with dependent sludge in the inferior portion. I believe the patient is experiencing symptomatic gallstones/gallbladder sludge. I have offered the patient cholecystectomy as treatment. She has agreed to this. Risks/benefits discussed, informed consent obtained, and all questions answered.
--- NOTE | 2019-10-10 07:47 | PDOC PROGRESS REPORT ---
Subjective Progress Note for:: 10/10/19 Subjective:: 34-year-old female admitted with gallbladder sludge, right upper quadrant pain, nausea, and vomiting. She continues to complain of pain. Her pain medicine does help somewhat. She denies fevers, chills, melena, hematochezia, hematemesis, chest pain, shortness of breath, orthostasis, dizziness, fatigue. Reason For Visit: SYMPTOMATIC GALLBLADDER SLUDGE Physical Exam Vital Signs: Temp Pulse Resp BP Pulse Ox 97.5 F 69 18 107/61 98 10/10/19 00:20 10/10/19 00:20 10/10/19 00:20 10/10/19 00:20 10/10/19 00:20 Intake & Output 10/09/19 10/10/19 10/11/19 05:59 06:59 06:59 Intake Total Balance Weight General appearance: PRESENT: no acute distress, cooperative Head exam: PRESENT: atraumatic, normocephalic Eye exam: PRESENT: EOMI, PERRLA. ABSENT: scleral icterus Mouth exam: PRESENT: moist, neck supple Neck exam: ABSENT: meningismus, tenderness, thyromegaly, tracheal deviation Respiratory exam: PRESENT: clear to auscultation boubacar, unlabored. ABSENT: chest wall tenderness, wheezes Cardiovascular exam: PRESENT: RRR Pulses: PRESENT: normal radial pulses GI/Abdominal exam: PRESENT: soft, tenderness. ABSENT: distended, firm, guarding Rectal exam: PRESENT: deferred Extremities exam: ABSENT: clubbing Musculoskeletal exam: ABSENT: deformity Neurological exam: PRESENT: alert, awake, oriented to person, oriented to place, oriented to time, oriented to situation, CN II-XII grossly intact Psychiatric exam: ABSENT: agitated, anxious Skin exam: ABSENT: cyanosis, erythema, jaundice Results Laboratory Results: 10/10/19 04:50 10/10/19 04:50 10/09/19 10/09/19 10/09/19 12:00 12:00 12:00 WBC 5.6 RBC 4.52 Hgb 11.2 L Hct 35.3 L MCV 78 L MCH 24.9 L MCHC 31.9 L RDW 17.3 H Plt Count 258 Seg Neutrophils % 66.4 VBG pH VBG pCO2 VBG HCO3 VBG Base Excess Sodium 134.6 L Potassium 4.6 Chloride 107 Carbon Dioxide 17 L Anion Gap 11 BUN 11 Creatinine 0.61 Est GFR ( Amer) > 60 Glucose 381 H Calcium 8.6 Total Bilirubin 0.2 AST 22 Alkaline Phosphatase 111 Total Protein 7.0 Albumin 3.9 Lipase Serum HCG, Qual NEGATIVE Urine Color Urine Appearance Urine pH Ur Specific [place] Urine Protein Urine Glucose (UA) Urine Ketones Urine Blood Urine RBC (Auto) 10/09/19 10/09/19 10/09/19 12:00 12:00 13:05 WBC RBC Hgb Hct MCV MCH MCHC RDW Plt Count Seg Neutrophils % VBG pH 7.37 VBG pCO2 30.6 L VBG HCO3 17.5 L VBG Base Excess -6.4 Sodium Potassium Chloride Carbon Dioxide Anion Gap BUN Creatinine Est GFR ( Amer) Glucose Calcium Total Bilirubin AST Alkaline Phosphatase Total Protein Albumin Lipase 143.5 Serum HCG, Qual Urine Color YELLOW Urine Appearance CLEAR Urine pH 5.0 Ur Specific [place] 1.037 Urine Protein 30 H Urine Glucose (UA) >=500 H Urine Ketones 20 H Urine Blood NEGATIVE Urine RBC (Auto) 2 10/10/19 10/10/19 04:50 04:50 WBC 5.4 RBC 3.91 Hgb 9.8 L Hct 30.5 L MCV 78 L MCH 25.1 L MCHC 32.2 RDW 17.5 H Plt Count 210 Seg Neutrophils % 50.6 VBG pH VBG pCO2 VBG HCO3 VBG Base Excess Sodium 139.2 Potassium 3.4 L D Chloride 113 H Carbon Dioxide 21 L Anion Gap 5 BUN 10 Creatinine 0.49 L Est GFR ( Amer) > 60 Glucose 31 L* Calcium 7.7 L Total Bilirubin < 0.1 L AST 25 Alkaline Phosphatase 86 Total Protein 5.6 L Albumin 3.0 L Lipase Serum HCG, Qual Urine Color Urine Appearance Urine pH Ur Specific [place] Urine Protein Urine Glucose (UA) Urine Ketones Urine Blood Urine RBC (Auto) Impressions: Abdomen/Pelvis CT 10/09/19 00:00 IMPRESSION: Minimally dilated intrahepatic bile ducts. No calcified stones. Common bile duct is normal caliber. 3.5 cm right ovarian cyst. Small amount of pelvic free fluid. Acute Abdomen Series 10/09/19 11:50 IMPRESSION: Moderate amount of stool in the colon which can be seen with constipation. No acute cardiopulmonary disease. Nonobstructive bowel gas pattern. Abdomen Ultrasound 10/09/19 13:32 IMPRESSION: Enlarged fatty liver. Mildly distended gallbladder. Assessment & Plan - Diagnosis (1) Gallbladder sludge Is this a current diagnosis for this admission?: Yes (2) Nausea and vomiting Qualifiers: Vomiting type: unspecified Vomiting Intractability: non-intractable Qualified Code(s): R11.2 - Nausea with vomiting, unspecified Is this a current diagnosis for this admission?: Yes - Plan Summary Plan Summary: This is a 34-year-old female with symptomatic gallbladder sludge. Her pain is unrelenting. She has been unable to eat due to the nausea and vomiting. Plan for cholecystectomy today. Hopefully the patient will feel improved enough for discharge home. The patient is in agreement with the treatment plan.
[2019-10-10] MEDS ORDERED: DEXTROSE 5%-NORMAL SALINE 1,000 ML IV PRN (08:45)
[2019-10-10] MEDS ORDERED: MORPHINE SULFATE 10 MG/ML INJ IV PRN (08:46)
[2019-10-10] MEDS ORDERED: FENTANYL CITRATE INJ/PF 100 MCG/2 ML AMPUL IV PRN ×3 (08:46)
[2019-10-10] MEDS ORDERED: PROMETHAZINE HCL INJ 25 MG/1 ML VIAL IV PRN (08:46)
[2019-10-10] MEDS ORDERED: DIPHENHYDRAMINE HCL 50 MG/ML VIAL IV PRN (08:46)
[2019-10-10] MEDS ORDERED: BUPIVACAINE HCL 0.25 % INJ/PF (2.5 MG/1 ML) 30 ML VIAL ONE (08:49)
[2019-10-10] MEDS ORDERED: MIDAZOLAM 2 MG/2 ML INJ ONE (08:51)
[2019-10-10] MEDS ORDERED: FENTANYL CITRATE INJ/PF 250 MCG/5 ML AMPULE ONE (08:51)
[2019-10-10] MEDS ORDERED: PROPOFOL INJ 200 MG/20 ML VIAL IV ONE (08:51)
[2019-10-10] MEDS ORDERED: HYDROMORPHONE HCL INJ/PF 2 MG/ML AMPULE ONE (08:51)
[2019-10-10] MEDS ORDERED: CEFOXITIN 1 GM/D5W RTU 1 GM/50 ML RTUPB IV ONE (09:04)
--- NOTE | 2019-10-10 10:32 | Operative Report ---
Nonrecallable Operative Report DATE OF SURGERY: 10/10/19 PREOPERATIVE DIAGNOSIS: Symptomatic gallbladder sludge. POSTOPERATIVE DIAGNOSIS: Acute cholecystitis OPERATION: Laparoscopic cholecystectomy SURGEON: DEB BLAKELY ANESTHESIA: GA TISSUE REMOVED OR ALTERED: Gallbladder COMPLICATIONS: None apparent ESTIMATED BLOOD LOSS: Minimal PROCEDURE: Drains/implants: None. Procedure in detail: After informed consent was obtained, the patient was brought into the operating room and laid in the supine position. The area of the abdomen was prepped and draped in a normal sterile fashion. An infraumbilical incision was created with a 15 blade scalpel. Dissection was carried through the subcutaneous tissues using sharp and blunt dissection. The cicatrix was identified, grasped with a Otto clamp, and retracted upwards. The linea alba fascia was incised sharply, the abdomen was entered sharply. The balloon trocar was inserted, and pneumoperitoneum was achieved. A subxiphoid 5 mm port was then placed under direct laparoscopic visualization. 2 more 5 mm ports were placed in the right upper quadrant in similar fashion. Atraumatic graspers were placed through the 5 mm ports. The gallbladder was retracted cephalad and laterally. There was acute inflammation and edema present throughout the gallbladder, consistent with acute cholecystitis. Dissection was begun in the triangle of [place]. The cystic duct and cystic artery were fully visualized and skeletonized, seeing the liver through the triangle. Once the critical view of safety was obtained, the cystic duct and cystic artery were clipped and cut with laparoscopic instruments. The gallbladder was then removed from the liver using Bovie electrocautery. The gallbladder was placed into an Endo Catch bag and pulled out through the umbilicus. The camera was reinserted. The hilum was inspected. It was found to be free of any leakage of blood or bile. A small piece of Surgicel was placed into the hilum of the gallbladder fossa over a raw area in the liver. The abdomen was then copiously irrigated and suctioned until the effluent was c lear. The 5 mm trochars were then removed under direct laparoscopic visualization. The infraumbilical trocar was removed, and pneumoperitoneum was relieved. The infraumbilical fascia was closed using 0 Vicryl suture in [id number] fashion. The overlying skin was closed using 4-0 Vicryl Rapide suture in subcuticular fashion. Dressings were placed, and the procedure was concluded. All sponge, instrument, and needle counts were correct x2. Condition: Stable.
[2019-10-10] MEDS ORDERED: KETOROLAC TROMETHAMINE INJ/PF 30 MG/1 ML SDV ONE (11:12)
[2019-10-10] MEDS: INSULIN LISPRO 100 UNIT/ML 3 ML VIAL SUBCUT SCH ×3 (11:53→22:51)
[2019-10-10] MEDS: FLUTICASONE/VILANTEROL 200-25 MCG/DOSE IH SCH (11:57)
[2019-10-10] MEDS: FAMOTIDINE INJ/PF 20 MG/2 ML SDV IV SCH ×2 (11:57→22:52)
[2019-10-10] MEDS ORDERED: DEXAMETHASONE SOD PHOSPHATE INJ 4 MG/1 ML VIAL ONE (15:00)
[2019-10-10] MEDS ORDERED: NEOSTIGMINE METHYLSULFATE 10 MG/10 ML VIAL ONE (15:00)
[2019-10-10] MEDS ORDERED: SUCCINYLCHOLINE CHLORIDE INJ 200 MG/10 ML VIAL ONE (15:00)
[2019-10-10] MEDS ORDERED: ONDANSETRON HCL INJ/PF 4 MG/2 ML SDV ONE (15:00)
[2019-10-10] MEDS ORDERED: ROCURONIUM BROMIDE INJ 50 MG/5 ML VIAL IV ONE (15:00)
[2019-10-10] MEDS ORDERED: GLYCOPYRROLATE 1 MG/5 ML VIAL ONE (15:00)
[2019-10-10] MEDS: HYDROCODONE/ACETAMINOPHEN 10-325 MG TABLET PO PRN (16:16)
[2019-10-10] MEDS ORDERED: ROPINIROLE HCL 0.25 MG TABLET PO SCH (22:00)
[2019-10-10] MEDS ORDERED: GABAPENTIN 400 MG CAPSULE PO SCH (22:00)
[2019-10-11] MEDS: LEVOTHYROXINE SODIUM 0.05 MG TABLET PO SCH (05:28)
[2019-10-11] MEDS: KETOROLAC TROMETHAMINE INJ/PF 30 MG/1 ML SDV IV SCH (05:29)
[2019-10-11] MEDS: MORPHINE SULFATE 10 MG/ML INJ IV PRN ×2 (05:29→09:42)
--- NOTE | 2019-10-11 06:23 | PDOC DISCHARGE SUMMARY ---
General - Admit/Disc Date/PCP Admission Date/Primary Care Provider: 10/09/19 20:21 JULIET ALEJO DO Discharge Date: 10/11/19 - Discharge Diagnosis Final Diagnosis: acute cholecystitis - Assessment Summary: This is a 34-year-old female admitted with right upper quadrant pain and persistent nausea/vomiting. The patient was taken to the operating room for laparoscopic cholecystectomy. The patient was found to have acute cholecystitis. Laparoscopic cholecystectomy was successfully completed. She was taken back to the floor in stable condition. On the floor, she began ambulating, tolerating a diet, and her pain was controlled with oral pain medications. By postoperative day #1 it was felt that she had reached maximal hospital benefit, and was fit for discharge. - Additional Information Resuscitation Status: Full Code Discharge Diet: As Tolerated Discharge Activity: Balance Activity w/Rest, No Lifting Over 10 Pounds, No Lifting/Push/Pulling Referrals: DEB BLAKELY MD [ACTIVE STAFF] - Prescriptions: Ibuprofen [Motrin 800 mg Tablet] 800 mg PO MEALS #42 tablet Hydrocodone/Acetaminophen [[place] 10-325 mg Tablet] 1 tab PO Q6HP PRN #20 tablet PRN Reason: Home Medications: Gabapentin [Neurontin 400 mg Capsule] 800 mg PO Q8 06/12/18 Insulin Aspart [Novolog Insulin (Aspart) 100 unit/mL] 0 unit SUBCUT .SLD SCALE 04/17/19 Insulin Detemir [Levemir] 35 unit SQ BID 04/17/19 Levothyroxine Sodium [Synthroid] 125 mcg PO Q6AM 04/17/19 Ropinirole HCl [Requip 0.25 mg Tablet] 0.25 mg PO QHS 04/17/19 Budesonide/Formoterol Fumarate [Symbicort HFA 160-4.5 mcg Inhaler 6 gm] 1 puff IH Q12 30 Days #1 inhaler 04/19/19 Hydrocodone/Acetaminophen [[place] 10-325 mg Tablet] 1 tab PO Q6HP PRN #20 tablet 10/11/19 Ibuprofen [Motrin 800 mg Tablet] 800 mg PO MEALS #42 tablet 10/11/19 Additional Information: Discharge home. Diet as tolerated. Activity: No lifting greater than 10 pounds x 2 weeks. Follow-up with [place] [facility] in 7 to 10 days. [place] 10/325 mg p.o. every 6 hours as needed for pain. Ibuprofen 800 mg p.o. 3 times daily with meals. Okay to shower starting on Friday. History of Present Illiness History of Present Illness: CHRISTIANO ST is a 34 year old female with a 2-day history of right upper quadrant pain that radiates around to the back. She reports that yesterday she ate [employer] breakfast, and shortly thereafter began having gnawing right upper quadrant pain. The pain progressed significantly over the next several hours. Her pain was sharp, stabbing, constant, unrelenting, and she presented to the emergency department for work-up. Her pain radiates around to her back and right scapula. She does report associated nausea and vomiting. She denies melena, hematochezia, hematemesis, headache, blurry vision, dizziness, orthostasis, fatigue, malaise, fevers, chills, chest pain, shortness of breath. She denies excessive NSAID use or alcohol consumption. She does not take steroids. She does report smoking every day. Physical Exam Vital Signs: Temp Pulse Resp BP Pulse Ox 98.2 F 80 18 98/48 L 97 10/10/19 23:44 10/10/19 23:44 10/10/19 23:44 10/10/19 23:44 10/10/19 23:44 Intake & Output 10/09/19 10/10/19 10/11/19 05:59 06:59 06:59 Intake Total 5280 Output Total 3015 Balance 2265 Weight Results Laboratory Results: WBC 5.4 10^3/uL (4.0-10.5) 10/10/19 04:50 RBC 3.91 10^6/uL (3.72-5.28) 10/10/19 04:50 Hgb 9.8 g/dL (12.0-15.5) L 10/10/19 04:50 Hct 30.5 % (36.0-47.0) L 10/10/19 04:50 MCV 78 fl (80-97) L 10/10/19 04:50 MCH 25.1 pg (27.0-33.4) L 10/10/19 04:50 MCHC 32.2 g/dL (32.0-36.0) 10/10/19 04:50 RDW 17.5 % (11.5-14.0) H 10/10/19 04:50 Plt Count 210 10^3/uL (150-450) 10/10/19 04:50 Lymph % (Auto) 35.9 % (13-45) 10/10/19 04:50 [place] % (Auto) 11.0 % (3-13) 10/10/19 04:50 Eos % (Auto) 1.8 % (0-6) 10/10/19 04:50 Baso % (Auto) 0.7 % (0-2) 10/10/19 04:50 Absolute Neuts (auto) 2.7 10^3/uL (1.7-8.2) 10/10/19 04:50 Absolute Lymphs (auto) 1.9 10^3/uL (0.5-4.7) 10/10/19 04:50 Absolute Monos (auto) 0.6 10^3/uL (0.1-1.4) 10/10/19 04:50 Absolute Eos (auto) 0.1 10^3/uL (0.0-0.6) 10/10/19 04:50 Absolute Basos (auto) 0.0 10^3/uL (0.0-0.2) 10/10/19 04:50 Seg Neutrophils % 50.6 % (42-78) 10/10/19 04:50 VBG pH 7.37 (7.30-7.42) 10/09/19 12:00 VBG pCO2 30.6 mmHg (35-63) L 10/09/19 12:00 VBG HCO3 17.5 mmol/L (20-32) L 10/09/19 12:00 VBG Base Excess -6.4 mmol/L 10/09/19 12:00 Sodium 139.2 mmol/L (137-145) 10/10/19 04:50 Potassium 3.4 mmol/L (3.6-5.0) L D 10/10/19 04:50 Chloride 113 mmol/L (98-107) H 10/10/19 04:50 Carbon Dioxide 21 mmol/L (22-30) L 10/10/19 04:50 Anion Gap 5 (5-19) 10/10/19 04:50 BUN 10 mg/dL (7-20) 10/10/19 04:50 Creatinine 0.49 mg/dL (0.52-1.25) L 10/10/19 04:50 Est GFR ( Amer) > 60 (>60) 10/10/19 04:50 Est GFR (MDRD) Non-Af > 60 (>60) 10/10/19 04:50 Glucose 31 mg/dL (75-110) L* 10/10/19 04:50 POC Glucose 377 mg/dL (70-110) H 10/10/19 22:18 Calcium 7.7 mg/dL (8.4-10.2) L 10/10/19 04:50 Total Bilirubin < 0.1 mg/dL (0.2-1.3) L 10/10/19 04:50 Direct Bilirubin Not Reportable 10/10/19 04:50 Neonat Total Bilirubin 0.2 mg/dL (0.1-1.1) 10/10/19 04:50 Neonat Direct Bilirubin 0.0 mg/dL (0.0-0.3) 10/10/19 04:50 Neonat Indirect Bili 0.2 mg/dL (0.0-1.1) 10/10/19 04:50 AST 25 U/L (14-36) 10/10/19 04:50 ALT 18 U/L (<35) 10/10/19 04:50 Alkaline Phosphatase 86 U/L (38-126) 10/10/19 04:50 Total Protein 5.6 g/dL (6.3-8.2) L 10/10/19 04:50 Albumin 3.0 g/dL (3.5-5.0) L 10/10/19 04:50 Lipase 143.5 U/L (23-300) 10/09/19 12:00 Serum HCG, Qual NEGATIVE (NEGATIVE) 10/09/19 12:00 Urine Color YELLOW 10/09/19 13:05 Urine Appearance CLEAR 10/09/19 13:05 Urine pH 5.0 (5.0-9.0) 10/09/19 13:05 Ur Specific [place] 1.037 10/09/19 13:05 Urine Protein 30 mg/dL (NEGATIVE) H 10/09/19 13:05 Urine Glucose (UA) >=500 mg/dL (NEGATIVE) H 10/09/19 13:05 Urine Ketones 20 mg/dL (NEGATIVE) H 10/09/19 13:05 Urine Blood NEGATIVE (NEGATIVE) 10/09/19 13:05 Urine Nitrite (Reflex) NEGATIVE (NEGATIVE) 10/09/19 13:05 Urine Bilirubin NEGATIVE (NEGATIVE) 10/09/19 13:05 Urine Urobilinogen NEGATIVE mg/dL (<2.0) 10/09/19 13:05 Leukocyte Esterase Rfl NEGATIVE (NEGATIVE) 10/09/19 13:05 Urine RBC (Auto) 2 /HPF 10/09/19 13:05 Urine WBC (Reflex) 1 /HPF 10/09/19 13:05 Squamous Epi Cells Auto <1 /HPF 10/09/19 13:05 Urine Mucus (Auto) RARE /LPF 10/09/19 13:05 Urine Ascorbic Acid NEGATIVE (NEGATIVE) 10/09/19 13:05 Urine Opiates Screen NEGATIVE 10/09/19 13:05 Urine Methadone Screen NEGATIVE 10/09/19 13:05 Ur Barbiturates Screen NEGATIVE 10/09/19 13:05 Ur Phencyclidine Scrn NEGATIVE 10/09/19 13:05 Ur Amphetamines Screen NEGATIVE 10/09/19 13:05 U Benzodiazepines Scrn NEGATIVE 10/09/19 13:05 Urine Cocaine Screen NEGATIVE 10/09/19 13:05 U Marijuana (THC) Screen NEGATIVE 10/09/19 13:05 Influenza A (Rapid) NEGATIVE (NEGATIVE) 10/09/19 16:44 Influenza B (Rapid) NEGATIVE (NEGATIVE) 10/09/19 16:44 Impressions: Abdomen/Pelvis CT 10/09/19 00:00 IMPRESSION: Minimally dilated intrahepatic bile ducts. No calcified stones. Common bile duct is normal caliber. 3.5 cm right ovarian cyst. Small amount of pelvic free fluid. Acute Abdomen Series 10/09/19 11:50 IMPRESSION: Moderate amount of stool in the colon which can be seen with constipation. No acute cardiopulmonary disease. Nonobstructive bowel gas pattern. Abdomen Ultrasound 10/09/19 13:32 IMPRESSION: Enlarged fatty liver. Mildly distended gallbladder.
[2019-10-11] MEDS: INSULIN LISPRO 100 UNIT/ML 3 ML VIAL SUBCUT SCH (08:01)
[2019-10-11] MEDS: HYDROCODONE/ACETAMINOPHEN 10-325 MG TABLET PO PRN (08:14)
[2019-10-11 08:32] VITALS: BP 114/74
[2019-10-11] MEDS: FLUTICASONE/VILANTEROL 200-25 MCG/DOSE IH SCH (09:22)
[2019-10-11] MEDS: FAMOTIDINE INJ/PF 20 MG/2 ML SDV IV SCH (09:43)
== END 2019-10-11 12:32 | disposition home or self-care (01) ==
LOC: ER 11:28 → EH 20:21 → INTOOBSV 20:21 → 5 22:16
PROVIDERS: ATTEND Surgery
DX: K81.1 Chronic cholecystitis (principal); E10.65 Type 1 diabetes mellitus with hyperglycemia; E10.51 Type 1 diabetes mellitus with diabetic peripheral angiopathy without gangrene; F17.210 Nicotine dependence, cigarettes, uncomplicated; J45.909 Unspecified asthma, uncomplicated; R05 Cough; E86.0 Dehydration; N83.201 Unspecified ovarian cyst, right side; Z98.51 Tubal ligation status; Z79.4 Long term (current) use of insulin; Z87.11 Personal history of peptic ulcer disease
CPT/HCPCS: 96376; 99285; 96361; 96374; 36415 ×2; 82962 ×3; 83690; 84703; 85025 ×2; 80053 ×2; 81001; 80307; 82803; 87804; 88304 ×2; 74022; 76705; 74177; 00790; 47562; G0378 ×4; J2250; J3490 ×9; J1100; S0119; J3010; J1815 ×2; J0694; J1885 ×3; J2270 ×3; J2710; J0330; J2405; J7042; J7030; J2704; S0028 ×3; 790; J1170

== ENCOUNTER 2019-12-18 12:22 | Emergency (ER) | payer MEDICAID ==
[2019-12-18] MEDS ORDERED: RINGERS SOLUTION,LACTATED 1,000 ML IV ONE (13:46)
[2019-12-18] MEDS ORDERED: METOCLOPRAMIDE HCL INJ/PF 10 MG/2 ML SDV IV ONE (13:46)
[2019-12-18] MEDS ORDERED: DIPHENHYDRAMINE HCL 50 MG/ML VIAL IV ONE (13:46)
--- NOTE | 2019-12-18 14:29 | ER Document Report ---
ED General - General Chief Complaint: Fever Stated Complaint: FEVER Time Seen by Provider: 12/18/19 13:16 Primary Care Provider: JULIET ALEJO DO [Primary Care Provider] - Follow up tomorrow Notes: Patient is a 34-year-old female who presents the emergency department with a chief complaint of fever. Patient states that she has had a fever for the past 2 to 3 days. She has been taking Tylenol and Goody powders. Patient is diabetic. States that she has been taking her medications as prescribed. Patient also states that she has generalized body aches and a headache. 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 She make sure she washes her hands frequently. TRAVEL OUTSIDE OF THE [place] IN LAST 30 DAYS: No - Related Data Allergies/Adverse Reactions: clarithromycin [From Biaxin] Allergy (Mild, Verified 10/09/19 11:40) Hives codeine [Codeine] Allergy (Mild, Verified 10/09/19 11:40) Hives meperidine HCl [From Demerol] Allergy (Mild, Verified 10/09/19 11:40) Hives Influenza Virus Vaccines [Influenza Virus Vaccine] Allergy (Verified 10/09/19 11:40) Past Medical History - General Information source: Patient - Social History Smoking Status: Current Every Day Smoker Family History: Reviewed & Not Pertinent, CAD, COPD, DM, Hyperlipidemia, Hypertension, Malignancy, Thyroid Disfunction, Other - Liver disease - Past Medical History Cardiac Medical History: Reports: Hx Peripheral Vascular Disease, Hx Heart Murmur Denies: Hx Atrial Fibrillation, Hx Congestive Heart Failure, Hx Coronary Artery Disease, Hx Heart Attack, Hx Hypercholesterolemia, Hx Hypertension, Hx Pulmonary Embolism Pulmonary Medical History: Reports: Hx Asthma Denies: Hx Bronchitis, Hx COPD, Hx Pneumonia, Hx Respiratory Failure, Hx Sleep Apnea, Hx Tuberculosis Neurological Medical History: Reports: Hx Migraine, Hx Seizures. Denies: Hx Cerebrovascular Accident, Hx Parkinson's Disease Endocrine Medical History: Reports: Hx Diabetes Mellitus Type 1, Hx Diabetes Mellitus Type 2, Hx Hypothyroidism. Denies: Hx Graves' Disease, Hx Hyperthyroidism Renal/ Medical History: Denies: Hx End Stage Renal Disease, Hx Kidney Stones, Hx Ovarian Cysts, Hx Peritoneal Dialysis, Hx Pelvic Inflammatory Disease Malignancy Medical History: Denies: Hx Breast Cancer, Hx Cervical Cancer, Hx Leukemia, Hx Lung Cancer, Hx Ovarian Cancer GI Medical History: Reports: Hx Gastroesophageal Reflux Disease, Hx Ulcer. Denies: Hx Crohn's Disease, Hx Hiatal Hernia, Hx Irritable Bowel, Hx Liver Failure, Hx Pancreatitis Musculoskeletal Medical History: Denies Hx Arthritis, Denies Hx Multiple Sclerosis, Denies Hx Systemic Lupus Erythematosus Skin Medical History: Reports Hx Cellulitis Psychiatric Medical History: Reports: Hx Depression Denies: Hx Bipolar Disorder, Hx Dementia, Hx Post Traumatic Stress Disorder, Hx Schizophrenia Infectious Medical History: Denies: Hx HIV Past Surgical History: Reports: Hx Section - x 2, Hx Gynecologic Surgery - D&C, Hx Oral Surgery, Hx Tubal Ligation. Denies: Hx Appendectomy, Hx Bowel Surgery, Hx Cholecystectomy, Hx Colostomy, Hx Coronary Artery Bypass Graft, Hx Gastric Bypass Surgery, Hx Herniorrhaphy, Hx Hysterectomy, Hx Mastectomy, Hx Pacemaker, Hx Tonsillectomy - Immunizations Immunizations up to date: Yes Hx Diphtheria, Pertussis, Tetanus Vaccination: Yes Hx Pneumococcal Vaccination: 08/04/00 Review of Systems - Review of Systems Notes: REVIEW OF SYSTEMS: CONSTITUTIONAL : Denies recent illness. Denies recent unintentional weight loss. See HPI. EENT: Denies eye, ear, throat, or mouth pain, discharge, or symptoms. Denies nasal or sinus congestion. CARDIOVASCULAR: Denies chest pain. RESPIRATORY: Denies shortness of breath, cough, congestion, difficulty breathing, or wheezing. GASTROINTESTINAL: Denies nausea, vomiting, and diarrhea. Denies abdominal pain. Denies constipation. GENITOURINARY: Denies difficulty urinating, burning, blood in urine, urgency or frequency. MUSCULOSKELETAL: See HPI. Denies joint pain or swelling. SKIN: Denies rash, itchiness, or lesions HEMATOLOGIC : Denies easy bruising or bleeding. LYMPHATIC: Denies swollen, painful, enlarged glands. NEUROLOGICAL: See HPI. PSYCHIATRIC: Denies stress, anxiety, alteration in sleep patterns, or depression. All other systems reviewed and negative. Physical Exam - Vital signs Vitals: Temp Pulse Resp BP Pulse Ox 99.6 F 103 H 18 107/68 99 12/18/19 13:19 12/18/19 13:19 12/18/19 13:19 12/18/19 13:19 12/18/19 13:19 - Notes Notes: PHYSICAL EXAMINATION: GENERAL: Appears fatigued, no acute distress. HEAD: Normocephalic, atraumatic. EYES: PERRL, conjunctiva normal, all extraocular movements intact, sclera nonicteric ENT: Moist mucous membranes. NECK: Supple, no noticeable swelling, redness, rash. Normal range of motion. LUNGS: Equal breath sounds bilaterally and clear to auscultation. No wheezes rales or rhonchi. CARDIOVASCULAR: S1-S2, regular rate, regular rhythm. Radial pulses 2+, normal. ABDOMEN: Normoactive bowel sounds. Soft, mildly tender mid lower abdomen, no guarding, no rebound tenderness, and no masses palpated. EXTREMITIES: Normal strength and range of motion, no pitting or edema. No cyanosis. NEUROLOGICAL: Moves all extremities upon command. Strength 5/5 in all extremities. PSYCH: Normal mood, normal affect. SKIN: Warm, dry. No rash, lesions, ulcerations noted. Normal skin turgor. Course - Re-evaluation Re-evalutation: 12/18/19 Hematology does not show a leukocytosis. Hemoglobin 10 with hematocrit of 30. Chest x-ray is normal. No pneumonia noted. She does not appear to be septic. Blood glucose was 36 on labs. Patient received 2 Amps of D50. An Accu-Chek was done prior, which showed her blood sugar was 34. After dextrose was administered, the patient's blood sugar was rechecked and it was 172. The patient does not check her blood sugars at home. I advised her to make sure she checks her blood sugars before she gives her insulin. She is in agreement with this plan. Patient states that she lost her meter. She states that she has a friend that has a glucometer she can borrow. Patient does have a large amount of leukocytes in her urine. She received Rocephin here in the emergency department. She also has 3+ bacteria. Her urine culture will be sent. hCG is negative. Patient will be started on Keflex. I have a low suspicion for meningitis, appendicitis, pancreatitis, renal calculi, or any life-threatening etiology at this time. She will follow-up with her primary care provider. She is in agreement with this plan. Follow-up precautions were given. Verbal discharge instructions were given to the patient. They verbalized understanding. They are stable for discharge. I do not suspect a COVID 19 infection at this time. - Vital Signs Vital signs: Temp Pulse Resp BP Pulse Ox 98.9 F 90 16 98/68 L 99 12/18/19 17:07 12/18/19 17:07 12/18/19 17:07 12/18/19 17:07 12/18/19 17:07 - Laboratory Result Diagrams: 12/18/19 14:40 12/18/19 14:40 Laboratory results interpreted by me: 12/18/19 12/18/19 12/18/19 14:25 14:40 14:40 Hgb 10.0 L Hct 30.4 L MCV 74 L MCH 24.4 L RDW 17.2 H Lymph % (Auto) 11.8 L Sodium 133.8 L Glucose 36 L* POC Glucose Urine Protein 100 H Urine Blood MODERATE H Urine Nitrite POSITIVE H Urine Urobilinogen 2.0 H Ur Leukocyte Esterase LARGE H 12/18/19 16:22 Hgb Hct MCV MCH RDW Lymph % (Auto) Sodium Glucose POC Glucose 172 H Urine Protein Urine Blood Urine Nitrite Urine Urobilinogen Ur Leukocyte Esterase Discharge - Discharge Clinical Impression: Hypoglycemia, Malaise and fatigue Urinary tract infection Qualifiers: Urinary tract infection type: site unspecified Hematuria presence: with hematuria Qualified Code(s): N39.0 - Urinary tract infection, site not specified Condition: Stable Disposition: HOME, SELF-CARE Instructions: Urinary Tract Infection ([facility]) Additional Instructions: Your urine shows findings consistent with a urinary tract infection. Please take all the antibiotics as directed even if your symptoms have improved. Please follow-up with your primary care physician as needed. Return to emergency room if you develop fever >101F, persistent vomiting, become lethargic, have severe pain in your sides, or any other symptoms that are concerning to you. Prescriptions: Cephalexin [Keflex] 500 mg PO BID #14 capsule Ondansetron [Zofran Odt 4 mg Tablet] 1 - 2 tab PO Q4H PRN #15 tab.rapdis PRN Reason: For Nausea/Vomiting Referrals: JULIET ALEJO DO [Primary Care Provider] - Follow up tomorrow
[2019-12-18 14:52] LABS: ABSOLUTE LYMPHOCYTES (AUTO) 0.8 10^3/uL (0.5-4.7); ABSOLUTE MONOCYTES (AUTO) 0.9 10^3/uL (0.1-1.4); ABSOLUTE NEUT (AUTO) 5.4 10^3/uL (1.7-8.2); BASOPHILS % (AUTO) 0.4 % (0-2); EOSINOPHILS % (AUTO) 0.2 % (0-6); HEMATOCRIT 30.4 % (36.0-47.0); LYMPHOCYTES % (AUTO) 11.8 % (13-45); MEAN CORPUSCULAR HEMOGLOBIN 24.4 pg (27.0-33.4); MEAN CORPUSCULAR HGB CONC 32.9 g/dL (32.0-36.0); MEAN CORPUSCULAR VOLUME 74 fl (80-97); MONOCYTES % (AUTO) 11.9 % (3-13); PLATELET COUNT 238 10^3/uL (150-450); RED CELL DISTRIBUTION WIDTH 17.2 % (11.5-14.0); SEGMENTED NEUTROPHILS % (AUTO) 75.7 % (42-78); TOTAL CELLS COUNTED % (AUTO) 100 %; WHITE BLOOD COUNT 7.2 10^3/uL (4.0-10.5)
[2019-12-18 15:12] LABS: ALBUMIN 3.7 g/dL (3.5-5.0); ALKALINE PHOSPHATASE 92 U/L (38-126); ANION GAP 7 (5-19); ASPARTATE AMINO TRANSFERASE 25 U/L (14-36); BILIRUBIN,TOTAL 0.2 mg/dL (0.2-1.3); BLOOD UREA NITROGEN 12 mg/dL (7-20); CALCIUM 8.7 mg/dL (8.4-10.2); CARBON DIOXIDE 25 mmol/L (22-30); CHLORIDE 102 mmol/L (98-107); POTASSIUM 3.6 mmol/L (3.6-5.0); TOTAL PROTEIN 6.7 g/dL (6.3-8.2)
--- NOTE | 2019-12-18 15:13 | RADIOLOGY REPORT (SQ) ---
EXAM DESCRIPTION: CHEST SINGLE VIEW IMAGES COMPLETED DATE/TIME: 12/18/2019 3:01 pm REASON FOR STUDY: body aches COMPARISON: Chest films 04/17/2019, 06/14/2018 EXAM PARAMETERS: NUMBER OF VIEWS: One view. TECHNIQUE: Single frontal radiographic view of the chest acquired. RADIATION DOSE: NA LIMITATIONS: None. FINDINGS: LUNGS AND PLEURA: No opacities, masses or pneumothorax. No pleural effusion. MEDIASTINUM AND HILAR STRUCTURES: No masses. Contour normal. HEART AND VASCULAR STRUCTURES: Heart normal in size. Normal vasculature. BONES: No acute findings. HARDWARE: None in the chest. OTHER: No other significant finding. IMPRESSION: NO ACUTE RADIOGRAPHIC FINDING IN THE CHEST. TECHNICAL DOCUMENTATION: JOB ID: [id number] 2010 [employer] +- All Rights Reserved Reading location - IP/workstation name: [email or web address]
[2019-12-18 15:16] LABS: GLUCOSE 36 mg/dL (75-110)
[2019-12-18 15:19] LABS: APPEARANCE,URINE CLOUDY; BILIRUBIN,URINE NEGATIVE (NEGATIVE); COLOR,URINE YELLOW; GLUCOSE, URINE NEGATIVE (NEGATIVE); KETONES,URINE NEGATIVE (NEGATIVE); LEUKOCYTE ESTERASE,URINE LARGE (NEGATIVE); NITRITE,URINE POSITIVE (NEGATIVE); PROTEIN,URINE 100 mg/dL (NEGATIVE); URINE SPECIFIC GRAVITY 1.014
[2019-12-18] MEDS ORDERED: DEXTROSE 50%-WATER 25 GM/50 ML DISP.SYRIN IV ONE (15:21)
[2019-12-18] MEDS ORDERED: CEFTRIAXONE INJ 1000 MG VIAL IV ONE (15:31)
[2019-12-18] MEDS ORDERED: ACETAMINOPHEN 325 MG TABLET PO ONE (15:49)
[2019-12-18] MEDS ORDERED: KETOROLAC TROMETHAMINE INJ/PF 30 MG/1 ML SDV IV ONE (16:48)
[2019-12-18 17:13] VITALS: BP 98/68
== END 2019-12-18 17:49 | disposition home or self-care (01) ==
LOC: ER 12:22
DX: N39.0 Urinary tract infection, site not specified (principal); E11.649 Type 2 diabetes mellitus with hypoglycemia without coma; R53.81 Other malaise; R53.83 Other fatigue; R50.9 Fever, unspecified; Z20.828 Contact with and (suspected) exposure to other viral communicable diseases; M79.10 Myalgia, unspecified site; R51 Headache; Z79.899 Other long term (current) drug therapy; Z88.8 Allergy status to other drugs, medicaments and biological substances; F17.200 Nicotine dependence, unspecified, uncomplicated; J45.909 Unspecified asthma, uncomplicated; E11.9 Type 2 diabetes mellitus without complications
CPT/HCPCS: 36415; 87086; 82962; 85025; 81025; 87088; 80053; 81001; 71045; J3490 ×2; J1200; J1885; J2765; J0696; J7120; 87186